=== PATIENT | female | born 1960 | race Caucasian/White ===

== ENCOUNTER 2023-07-18 14:43 | Outpatient (AMB) | payer OTHER, SELFPAY ==
[2023-07-18 14:56] VITALS: BP 102/82; PULSE 69; O2SAT 97; BMI 21.4
--- NOTE | 2023-07-18 14:56 | HO.NEPHOV_ITS ---
HPI HPI Comments History of Present Illness Details 61-year-old woman with a history of hype rtension and nephrolithiasis he is here for further evaluation of renal stones. About 3 years ago she underwent lithotripsy. She has had no further follow-up with respect to renal stones and she self-referred herself. Her mother is also her patient of mine. Today she denies any new complaints. No dysuria urgency increased frequency. No hematuria. No line pain or flank pain. Vital Signs 07/18/23 14:56 Height 5 ft 2 in Weight 117 lb BMI 21.4 BP 102/82 Blood Pressure Location Rt brachial Position Sitting Pulse 69 Pulse Source Pulse Oximeter Pulse Oximetry (%) 97 Oxygen Delivery Method Room Air Physical Exam Vital Signs: Last Vital Signs Pulse 69 07/18/23 14:56 BP 102/82 07/18/23 14:56 Pulse Ox 97 07/18/23 14:56 Oxygen Delivery Method Room Air 07/18/23 14:56 BMI result Body Mass Index 21.4 Const General: comfortable Nutritional Appearance: well nourished Orientation/consciousness: patient oriented x3 HEENT Head: No normal to inspection Mouth: moist mucous membranes Neck Neck: Yes supple and Yes no JVD Resp Auscultation: clear to auscultation bilaterally, no rales and rub present Cardio Jugular venous distension: no JVD Palpation: no palpable S3 and no palpable S4 Heart sounds: no rubs GI Palpation (GI): Soft to palpation and nontender Percussion: No Fluid wave present General: Yes no CVA tenderness Back/Spine/Pelvis Back: no CVA tenderness Skin General skin exam: no rashes or lesions noted Neuro General: patient oriented x3 Extrem General: Yes no pedal edema and No clubbing Assessment & Plan Assessment & Plan (1) Nephrolithiasis: Code(s): N20.0 - Calculus of kidney (2) HTN (hypertension): Code(s): I10 - Essential (primary) hypertension Plan 63-year-old woman with nephrolithiasis. At present she is asymptomatic. However she believes she still has some stones. I will initiate a workup for the nephrolithiasis. Order renal ultrasonogram. Obtain 24 urine collection for the urine studies. The meantime increased shortness and low-sodium diet and increase her fluid intake to maintain a urine output of at least 2 L in 24 hour. She is currently on Topamax. Topamax can cause slice and foam renal stones. Therefore encouraged her to increase her fluid intake to keep the urine dilute. It is unclear as to why she is on Topamax. If he continues to have recurrent nephrolithiasis it may be worthwhile to try alternate agents to replace Topamax. Hypertension Blood pressure has been well controlled today blood pressure rather low. If the systolic blood pressure remains less than 100 we might have to lower the antihypertensive medications. Orders: Orders Uric Acid, 24Hr Urine Group 07/18/23 I10 - Essential (primary) hypertension, N20.0 - Calculus of kidney Oxalate, 24 Hr 07/18/23 I10 - Essential (primary) hypertension, N20.0 - Calculus of kidney Blood Urea Nitrogen 07/18/23 I10 - Essential (primary) hypertension, N20.0 - Calculus of kidney Uric Acid 07/18/23 I10 - Essential (primary) hypertension, N20.0 - Calculus of kidney Sodium, 24Hr Urine Group 07/18/23 I10 - Essential (primary) hypertension, N20.0 - Calculus of kidney Calcium, 24 Hr Ur 07/18/23 I10 - Essential (primary) hypertension, N20.0 - Calculus of kidney Creatinine, 24 Hr Group 07/18/23 I10 - Essential (primary) hypertension, N20.0 - Calculus of kidney Citric Acid 24hr Urine 07/18/23 I10 - Essential (primary) hypertension, N20.0 - Calculus of kidney Electrolytes 07/18/23 I10 - Essential (primary) hypertension, N20.0 - Calculus of kidney Creatinine 07/18/23 I10 - Essential (primary) hypertension, N20.0 - Calculus of kidney Calcium 07/18/23 I10 - Essential (primary) hypertension, N20.0 - Calculus of kidney UA and rflx microscopic 07/18/23 I10 - Essential (primary) hypertension, N20.0 - Calculus of kidney US renal BI 07/18/23 I10 - Essential (primary) hypertension, N20.0 - Calculus of kidney Coding Level of Care Code New Pt Level 4 (84218) Diagnoses Nephrolithiasis N20.0 HTN (hypertension) I10
== END 2023-07-18 15:23 | disposition home or self-care (01) ==
PROVIDERS: PCP Family Medicine; Visit Provider Internal Medicine Hypertension Specialist
DX: N20.0 Calculus of kidney (principal); I10 Essential (primary) hypertension
CPT/HCPCS: 99204

== ENCOUNTER → 2023-07-18 14:43 | Outpatient (BNVA) | payer OTHER, SELFPAY | PROVIDERS: PCP Family Medicine; Visit Provider Internal Medicine Hypertension Specialist | DX: N20.0 Calculus of kidney (principal); I10 Essential (primary) hypertension | CPT/HCPCS: 99202 ==

== ENCOUNTER 2023-08-10 16:02 | Outpatient (REF) | payer OTHER, SELFPAY ==
--- NOTE | ~2023-08-10 | US_ITS ---
EXAMINATION: US RETROPERITONEAL LIMITED (RENAL ONLY) CLINICAL INFORMATION: Essential (primary) hypertension. COMPARISON: None available. TECHNIQUE: Real-time imaging of the kidneys. FINDINGS: RIGHT KIDNEY: 11.0 x 2.9 x 4.3 cm (SAG x AP x TRV). The kidney is normal in size, contour, and echogenicity. Renal cortical thickness is normal. No calculi or focal parenchymal lesions. No hydronephrosis. LEFT KIDNEY: 10.2 x 4.5 x 4.0 cm (SAG x AP x TRV). The kidney is normal in size, contour, and echogenicity. Renal cortical thickness is normal. No calculi or focal parenchymal lesions. Pelviectasis without clayton hydronephrosis. US/US renal BI IMPRESSION: Left renal pelviectasis without clayton hydronephrosis.
== END 2023-08-10 16:03 | disposition home or self-care (01) ==
LOC: HO.US 16:02
PROVIDERS: Visit Provider Internal Medicine Hypertension Specialist
DX: N20.0 Calculus of kidney (principal); I10 Essential (primary) hypertension
CPT/HCPCS: 76775

== ENCOUNTER 2023-08-16 09:56 | Outpatient (REF) | payer OTHER, SELFPAY ==
[2023-08-16 11:32] LABS: Appearance Urine Clear; Color Urine Yellow; Glucose Urine UA Negative (Negative); Leukocyte Esterase Urine Negative (Negative); Nitrite Urine Negative (Negative); Specific Gravity - Urine 1.015 (1.005-1.025); Urine Blood Negative (Negative); Urine Ketones Negative (Negative); Urine Protein Negative (Neg-Trace)
[2023-08-16 13:07] LABS: Anion Gap 11 (12-20); Blood Urea Nitrogen 22 mg/dL (9-16); Calcium 9.9 mg/dL (8.4-10.2); Carbon Dioxide 27 mmol/L (22-29); Chloride 107 mmol/L (96-108); Estimated Glomerular Filt Rate > 60; Potassium 3.9 mmol/L (3.3-5.1); Sodium 141 mmol/L (135-145); Uric Acid 3.2 mg/dL (2.4-5.7)
== END 2023-08-16 09:57 | disposition home or self-care (01) ==
LOC: HO.LAB 09:56
PROVIDERS: Visit Provider Internal Medicine Hypertension Specialist
DX: I10 Essential (primary) hypertension (principal); N20.0 Calculus of kidney
CPT/HCPCS: 36415; 80051; 81003; 82310; 82565; 84520; 84550

== ENCOUNTER 2023-08-23 11:57 | Outpatient (REF) | payer OTHER, SELFPAY ==
[2023-08-23 12:10] LABS: Total Volume 24 Hour Urine 3100 mL
[2023-08-23 13:15] LABS: Creatinine, mg/dL 33.02; Sodium 24 Hr Urine 86.8 mmol/Day (40-220)
[2023-08-23 13:17] LABS: Creatinine, mg/dL 32.35; Uric Acid, 24 Hr Urine 483.6 mg/Day (250-750); Uric Acid, mg/dL 15.6 mg/dL
[2023-08-24 18:54] LABS: Calcium, 24 Hr Urine 93 mg/24 h; Calcium/Creatinine Ratio 83 mg/g creat (30-275); Creatinine 24Hr Urine 1.12 g/24 h (0.50-2.15)
[2023-08-28 08:33] LABS: 24hr Urine Total Volume 3100 mL; Citric Acid, 24hr Urine 620 mg/24 h (100-1300); Citric Acid/Creat Ratio 24U 539 mg/g creat (180-1070); Creatinine, 24U 1.12 g/24 h (0.50-2.15)
[2023-08-31 04:03] LABS: Oxalic Acid 24 Urine 44.4 mg/24 h (3.6-38.0)
== END 2023-08-23 11:58 | disposition home or self-care (01) ==
LOC: HO.LNP 11:57
PROVIDERS: Visit Provider Internal Medicine Hypertension Specialist
DX: I10 Essential (primary) hypertension (principal); N20.0 Calculus of kidney
CPT/HCPCS: 82340; 82507; 83945; 84300; 84560

== ENCOUNTER 2023-09-01 14:48 | Outpatient (AMB) | payer OTHER, SELFPAY ==
[2023-09-01 14:49] VITALS: BP 100/60; PULSE 91; O2SAT 99; BMI 21.4
--- NOTE | 2023-09-01 14:49 | HO.NEPHOV_ITS ---
HPI HPI Comments History of Present Illness Details 61-year-old woman with a history of hype rtension and nephrolithiasis he is here for further evaluation of renal stones. About 3 years ago she underwent lithotripsy. She has had no further follow-up with respect to renal stones and she self-referred herself. Her mother is also her patient of mine. Today she denies any new complaints. No dysuria urgency increased frequency. No hematuria. No line pain or flank pain. PFSH Medical History (Updated 09/20/23 @ 15:13 by Bindu Mack MA) HTN (hypertension) Nephrolithiasis Surgical History (Updated 09/20/23 @ 15:13 by Bindu Mack MA) History of section Family History Sister Diabetes Cancer Father Cancer Social History (Updated 09/20/23 @ 15:12 by Bindu Mack MA) Alcohol intake: never Patient Tobacco Use Status: Never used Tobacco Use of substances other than those prescribed or required for medical reasons: No Vital Signs 09/01/23 14:49 Height 5 ft 2 in Weight 117 lb BMI 21.4 BP 100/60 Blood Pressure Location Rt brachial Position Sitting Pulse 91 Pulse Source Pulse Oximeter Pulse Oximetry (%) 99 Oxygen Delivery Method Room Air Physical Exam Vital Signs: Last Vital Signs Pulse 91 09/01/23 14:49 BP 100/60 09/01/23 14:49 Pulse Ox 99 09/01/23 14:49 Oxygen Delivery Method Room Air 09/01/23 14:49 BMI result Body Mass Index 21.4 Const General: comfortable Nutritional Appearance: well nourished Orientation/consciousness: patient oriented x3 HEENT Head: No normal to inspection Mouth: moist mucous membranes Neck Neck: Yes supple and Yes no JVD Resp Auscultation: clear to auscultation bilaterally, no rales and rub present Cardio Jugular venous distension: no JVD Palpation: no palpable S3 and no palpable S4 Heart sounds: no rubs GI Palpation (GI): Soft to palpation and nontender Percussion: No Fluid wave present General: Yes no CVA tenderness Back/Spine/Pelvis Back: no CVA tenderness Skin General skin exam: no rashes or lesions noted Neuro General: patient oriented x3 Extrem General: Yes no pedal edema and No clubbing Assessment & Plan Assessment & Plan (1) Nephrolithiasis: Code(s): N20.0 - Calculus of kidney (2) HTN (hypertension): Code(s): I10 - Essential (primary) hypertension Plan 63-year-old woman with nephrolithiasis. At present she is asymptomatic. However she believes she still has some stones. I will initiate a workup for the nephrolithiasis. Order renal ultrasonogram. Obtain 24 urine collection for the urine studies. The meantime increased shortness and low-sodium diet and increase her fluid intake to maintain a urine output of at least 2 L in 24 hour. She is currently on Topamax. Topamax can cause slice and foam renal stones. Therefore encouraged her to increase her fluid intake to keep the urine dilute. It is unclear as to why she is on Topamax. If he continues to have recurrent nephrolithiasis it may be worthwhile to try alternate agents to replace Topamax. Hypertension Blood pressure has been well controlled today blood pressure rather low. If the systolic blood pressure remains less than 100 we might have to lower the antihypertensive medications. Coding Level of Care Code Est Pt Level 3 (28586) Diagnoses Nephrolithiasis N20.0 HTN (hypertension) I10 Results Reviewed Nephrology Results: Hgb 14.7 g/dL (12.0-16.0) 07/06/18 WBC 4.8 X10*3/uL (4.8-10.8) 07/06/18 Plt Count 130 X10*3/uL (160-400) L 07/06/18 Sodium 141 mmol/L (135-145) 08/16/23 Potassium 3.9 mmol/L (3.3-5.1) 08/16/23 Chloride 107 mmol/L (96-108) 08/16/23 Carbon Dioxide 27 mmol/L (22-29) 08/16/23 BUN 22 mg/dL (9-16) H 08/16/23 Creatinine 0.80 mg/dL (0.5-1.4) 08/16/23 Calcium 9.9 mg/dL (8.4-10.2) 08/16/23 PTH Intact 46 pg/mL (14-64) 07/06/18 Urine Protein Negative mg/dL (Neg-Trace) 08/16/23 Renal US 08/10/23
== END 2023-09-01 15:12 | disposition home or self-care (01) ==
PROVIDERS: PCP Family Medicine; Visit Provider Internal Medicine Hypertension Specialist
DX: N20.0 Calculus of kidney (principal); I10 Essential (primary) hypertension
CPT/HCPCS: 99213

== ENCOUNTER → 2023-09-01 14:48 | Outpatient (BNVA) | payer OTHER, SELFPAY | PROVIDERS: PCP Family Medicine; Visit Provider Internal Medicine Hypertension Specialist | DX: N20.0 Calculus of kidney (principal); I10 Essential (primary) hypertension | CPT/HCPCS: 99212 ==

== ENCOUNTER 2023-09-20 15:05 | Outpatient (AMB) | payer OTHER, SELFPAY ==
[2023-09-20 15:06] VITALS: BP 110/70; PULSE 50; O2SAT 100
--- NOTE | 2023-09-20 15:06 | HO.NEPHOV_ITS ---
HPI HPI Comments History of Present Illness Details 61-year-old woman with a history of hype rtension and nephrolithiasis he is here for further evaluation of renal stones. About 3 years ago she underwent lithotripsy. She has had no further follow-up with respect to renal stones and she self-referred herself. Her mother is also her patient of mine. Today she denies any new complaints. No dysuria urgency increased frequency. No hematuria. No line pain or flank pain. 09/20/23 Doing well [facility] Medical History (Updated 09/20/23 @ 15:13 by Bindu Mack MA) HTN (hypertension) Nephrolithiasis Surgical History (Updated 09/20/23 @ 15:13 by Bindu Mack MA) History of section Family History Sister Diabetes Cancer Father Cancer Social History (Updated 09/20/23 @ 15:12 by Bindu Mack MA) Alcohol intake: never Patient Tobacco Use Status: Never used Tobacco Use of substances other than those prescribed or required for medical reasons: No Vital Signs 09/20/23 15:06 Height 5 ft 2 in Weight 109 lb 2 oz BMI 20.0 BP 110/70 Blood Pressure Location Lt brachial Position Sitting Pulse 50 Pulse Source Pulse Oximeter Pulse Oximetry (%) 100 Oxygen Delivery Method Room Air Physical Exam Vital Signs: Last Vital Signs Pulse 50 09/20/23 15:06 BP 110/70 09/20/23 15:06 Pulse Ox 100 09/20/23 15:06 Oxygen Delivery Method Room Air 09/20/23 15:06 BMI result Body Mass Index 20.0 Const General: comfortable Nutritional Appearance: well nourished Orientation/consciousness: patient oriented x3 HEENT Head: No normal to inspection Mouth: moist mucous membranes Neck Neck: Yes supple and Yes no JVD Resp Auscultation: clear to auscultation bilaterally, no rales and rub present Cardio Jugular venous distension: no JVD Palpation: no palpable S3 and no palpable S4 Heart sounds: no rubs GI Palpation (GI): Soft to palpation and nontender Percussion: No Fluid wave present General: Yes no CVA tenderness Back/Spine/Pelvis Back: no CVA tenderness Skin General skin exam: no rashes or lesions noted Neuro General: patient oriented x3 Extrem General: Yes no pedal edema and No clubbing Assessment & Plan Assessment & Plan (1) Nephrolithiasis: Code(s): N20.0 - Calculus of kidney (2) HTN (hypertension): Code(s): I10 - Essential (primary) hypertension Plan 63-year-old woman with nephrolithiasis. At present she is asymptomatic. However she believes she still has some stones. I will initiate a workup for the nephrolithiasis. Order renal ultrasonogram. Obtain 24 urine collection for the urine studies. The meantime increased shortness and low-sodium diet and increase her fluid intake to maintain a urine output of at least 2 L in 24 hour. She is currently on Topamax. Topamax can cause slice and foam renal stones. Therefore encouraged her to increase her fluid intake to keep the urine dilute. It is unclear as to why she is on Topamax. If he continues to have recurrent nephrolithiasis it may be worthwhile to try alternate agents to replace Topamax. Hypertension Blood pressure has been well controlled today blood pressure rather low. If the systolic blood pressure remains less than 100 we might have to lower the antihypertensive medications. Coding Level of Care Code Est Pt Level 3 (55807) Diagnoses Nephrolithiasis N20.0 HTN (hypertension) I10 Results Reviewed Nephrology Results: Hgb 14.7 g/dL (12.0-16.0) 07/06/18 WBC 4.8 X10*3/uL (4.8-10.8) 07/06/18 Plt Count 130 X10*3/uL (160-400) L 07/06/18 Sodium 141 mmol/L (135-145) 08/16/23 Potassium 3.9 mmol/L (3.3-5.1) 08/16/23 Chloride 107 mmol/L (96-108) 08/16/23 Carbon Dioxide 27 mmol/L (22-29) 08/16/23 BUN 22 mg/dL (9-16) H 08/16/23 Creatinine 0.80 mg/dL (0.5-1.4) 08/16/23 Calcium 9.9 mg/dL (8.4-10.2) 08/16/23 PTH Intact 46 pg/mL (14-64) 07/06/18 Urine Protein Negative mg/dL (Neg-Trace) 08/16/23 Renal US 08/10/23
== END 2023-09-20 15:27 | disposition home or self-care (01) ==
PROVIDERS: PCP Family Medicine; Visit Provider Internal Medicine Hypertension Specialist
DX: N20.0 Calculus of kidney (principal); I10 Essential (primary) hypertension
CPT/HCPCS: 99213

== ENCOUNTER → 2023-09-20 15:05 | Outpatient (BNVA) | payer OTHER, SELFPAY | PROVIDERS: PCP Family Medicine; Visit Provider Internal Medicine Hypertension Specialist | DX: N20.0 Calculus of kidney (principal); I10 Essential (primary) hypertension | CPT/HCPCS: 99212 ==

== ENCOUNTER 2023-11-12 09:21 | Emergency (ER) | payer OTHER, SELFPAY ==
--- NOTE | ~2023-11-12 | XR_ITS ---
EXAMINATION: XR HAND/WRIST, LEFT CLINICAL INFORMATION: Atraumatic pain to the dorsal hand. COMPARISON: None TECHNIQUE: PA, lateral, and oblique views of the left hand and wrist. FINDINGS: No fracture or subluxation. Mild multifocal degenerative osteoarthritis with joint space narrowing, trace subcortical sclerosis and small marginal osteophytes more prominent in the distal interphalangeal joints. No osseous erosions. No unusual soft tissue calcifications. XR/XR hand wrist LT IMPRESSION: 1. No acute fracture or subluxation. 2. Mild multifocal degenerative osteoarthritis.
[2023-11-12 09:28] VITALS: BP 144/72; PULSE 78; RESP 16; TEMP 36.9; O2SAT 97; BMI 21.6
--- NOTE | 2023-11-12 09:54 | ED.EXTPRO ---
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 She admits to numbness/tingling of the first 3 digits on her left hand. Pain is worse in the morning and remains throughout the day. Endorses difficulty grabbing items with her left hand. She states that she has a history of carpal tunnel in both wrists that has not required surgery in the past. Her pcp is aware of her recent left hand/wrist pain and has provided her with a referral to an orthopedic doctor for further evaluation. She has an appointment with [facility] in December (1 mo away). She does not currently wear a wrist brace. She has not been taking any OTC pain medications. Denies injury/trauma to the left hand/wrist. Denies left neck, shoulder, or elbow pain. A appointment scheduler was utilized throughout visit to communicate with patient. Related Data Home Medications Medication Instructions Recorded Confirmed buspirone 10 mg tablet 10 mg PO BID 07/18/23 citalopram 20 mg tablet (Celexa) 20 mg PO DAILY 07/18/23 clopidogrel 75 mg tablet (Plavix) 75 mg PO DAILY 07/18/23 losartan 100 mg tablet 100 mg PO DAILY 07/18/23 montelukast 10 mg tablet 10 mg PO DAILY 07/18/23 (Singulair) pantoprazole 40 mg granules 40 mg PO DAILY 07/18/23 delayed-release for susp in packet sennosides 8.6 mg capsule (senna) 8.6 mg PO DAILY 07/18/23 topiramate 100 mg tablet (Topamax) 100 mg PO DAILY 07/18/23 Previous Rx's Medication Instructions Recorded prednisone 20 mg tablet 40 mg (2 x 20 mg) PO DAILY 5 days 11/12/23 #10 tabs Allergies Allergy/AdvReac Type Severity Reaction Status Date / Time aspirin Allergy Unknown Rash Verified 11/12/23 09:33 ibuprofen Allergy Unknown Rash Verified 11/12/23 09:33 loratadine Allergy Unknown Rash Verified 03/02/24 09:33 pneumococcal vaccine Allergy Unknown Rash Verified 11/12/23 09:33 Penicillins Allergy Rash Verified 11/12/23 09:33 Seafood Allergy Unknown Rash Uncoded 11/12/23 09:33 flu vaccine Allergy Rash Uncoded 11/12/23 09:33 shingles vaccine Allergy rash Uncoded 11/12/23 09:33 Review of Systems Review of Systems: Constitutional: No fever, chills, fatigue, night sweats, weight changes ENT/Mouth: No ear pain, hearing loss, nasal congestion, sinus pain, rhinorrhea, sore throat Eyes: No eye pain, swelling, redness, vision changes, discharge Cardio: No chest pain, palpitations, AMBROCIO, orthopnea, peripheral edema Pulm: No SOB, cough, sputum, wheezing, dyspnea, hemoptysis GI: No nausea, vomiting, hematemesis, abdominal pain, diarrhea, constipation, hematochezia, melena : No irregular bleeding, dysuria, frequency, urgency, hesitancy, hematuria, flank pain, urinary flow changes, urinary incontinence or retention MSK: No back pain, neck pain, joint pain, myalgias, +left wrist/hand pain Skin: No lesions, rashes Neuro: No weakness, numbness, paresthesias, LOC, dizziness, headache Psych: No anxiety/panic, depression, SI/HI, AH/VH All other systems reviewed and are negative. [facility] Past Medical History Attestation statement: The following information was validated with the patient. Source: old records reviewed and nursing notes reviewed Medical History HTN (hypertension) Nephrolithiasis Surgical History History of section Family History Family History Sister Diabetes Cancer Father Cancer Social History Social History Alcohol intake: never Patient Tobacco Use Status: Never used Tobacco Advance Directives: No Advance Directives Information Provided: No Physical Exam Vital Signs: Vital Signs: Last Vital Signs Temp 98.4 F 11/12/23 09:28 Pulse 78 11/12/23 09:28 Resp 16 11/12/23 09:28 BP 144/72 H 11/12/23 09:28 Pulse Ox 97 11/12/23 09:28 O2 Del Method Room Air 11/12/23 09:28 BMI result Body Mass Index 21.6 Patient hypertensive, vitals otherwise wnl. Const: General: cooperative, healthy appearing, comfortable and no acute distress Nutritional Appearance: average body habitus Orientation/consciousness: patient oriented x3 Limitations: no limitations HEENT: Head: Yes normal to inspection, Yes No palpable skull fracture present, Yes normocephalic and Yes atraumatic Eyes: General: appearance normal, both eyes and all related structures Conjunctivae: conjunctivae normal Sclerae: sclerae normal Pupils: Equal, round and reactive pupils present EOM: EOMs intact bilaterally Neck: Neck: Yes normal visual inspection, Yes full ROM and Yes no lymphadenopathy Resp: Effort & Inspection: normal respiratory effort Auscultation: clear to auscultation bilaterally Cardio: Other: 2+ radial and ulnar pulses Rate: regular rate Rhythm: regular rhythm Back/Spine/Pelvis: Other: No midline spinous tenderness or step off deformity. No paraspinal muscle tenderness. Skin: General skin exam: no rashes or lesions noted Neuro: Other: Sensation intact to light touch.? Neurovascular intact distally.? General: patient oriented x3 and gait normal Cranial nerves: Yes Equal, round and reactive pupils present Gait exam (Neuro): Normal gait present Deep tendon reflexes (DTR's): Left triceps reflex intensity grade: 2+ and Left biceps reflex intensity grade: 2+ Extrem: Other: + no thenar atrophy. No edema or overlying skin changes noted to the left wrist/hand. No cyanosis, pallor, warmth or coolness. 2+ radial and ulnar pulses b/l. Full ROM intact to left elbow, wrist, and digits. Positive tinel and phalen on left. Decreased chronic care nurse strength to left hand. Finger to thumb opposition intact. Course Course Course Narrative: 1049-- Exam consistent with carpal tunnel syndrome. Xrays do not demonstrate acute fracture however they do demonstrate chronic degenerative changes within the left hand/wrist. Will supply patient with wrist brace to help with immobilization. Advised to wear this mainly at night however this can be worn throughout the day as well given patient is left hand dominant. 5 day prescription of prednisone sent to pharmacy. Educated patient on worrisome signs and symptoms and when to return to the ED. Patient has an appointment with orthopedic doctor in one month for further investigation/ treatment. Patient has remained stable throughout ED visit today. All questions answered at this time. Patient is agreeable with disposition and stable for discharge. Medical Decision Making Medical Decision Making [facility] Narrative: 63-year-old left hand dominant female with pmhx significant for hypertension presents to the ED today for evaluation left hand/wrist pain x2 weeks. Patient hypertensive to 144/72, vitals otherwise WNL. On exam, no thenar atrophy. No edema or overlying skin changes noted to the left wrist/hand. No cyanosis, pallor, warmth or coolness. 2+ radial and ulnar pulses b/l. Full ROM intact to left elbow, wrist, and digits. Positive tinel and phalen on left. Decreased chronic care nurse strength to left hand. Finger to thumb opposition intact. Exam nonfocal. RRR. Differential includes carpal tunnel syndrome, arthritis. Unlikely compartment syndrome, fracture/dislocation, neurovascular compromise, gout/pseudogout, septic joint, threat to limb, CVA/TIA, ACS. Plan for xrays and reevaluation. Differential Diagnosis Differential Diagnoses: The differential diagnosis associated with the presentation includes as above. Admission/Observation Not indicated. Independent Interpretation I performed an independent interpretation of an: Plain X-Ray Interpretation: I have personally reviewed xray of left wrist/hand and agree with radiologist's interpretation. Radiology Impression Discussion of test interpretation with radiology: I have reviewed the radiologist's reading. Radiologist Impression: XR hand wrist LT IMPRESSION: 1. No acute fracture or subluxation. 2. Mild multifocal degenerative osteoarthritis. External Record Review External record reviewed: Inpatient record, Office record, Outpatient record, Prior outpatient labs, Prior outpatient radiology, Primary care record and Outside ED record Prescription Management I considered prescription management with: Pain Medication and Other (prednisone) Chronic Conditions Patient?s care impacted by: Other (carpal tunnel syndrome) Social Determinants Patient?s care significantly limited by Social Determinants of Health including: Other Social Determinant of Health Procedures Orthopedic Splinting/Casting Injury #1: Side: left Upper Extremity Injury Location: wrist Upper Extremity Immobilizer: wrist splint Discharge Plan Discharge Clinical Impression: Carpal tunnel syndrome Qualifiers: Laterality: left Qualified Code(s): G56.02 - Carpal tunnel syndrome, left upper limb Patient Disposition: Home, Self-Care Instructions: Steroid Joint Injection (DC), Carpal Tunnel Surgery (DC), Electromyography (DC) Additional Instructions: Your physical exam is consistent with carpal tunnel syndrome (compression of the median nerve). This can cause numbness/ tingling in your hand along with difficulty grasping objects. You have been provided with a wrist brace. This is most helpful to wear at night however you may wear it throughout the day as well. Prednisone is a steroid that has been sent to your pharmacy. Take this over the next 5 days to help with inflammation. If your diabetic, please monitor your sugars at home as steroids can elevate sugar. You may also take Tylenol and ibuprofen as needed at home. Keep your appointment with the orthopedic doctor next month as you may require further intervention or even surgery. Return with any new or worsening symptoms. Follow-up with your PCP as needed. [place] examen f?sico es consistente con el s?ndrome del t?sumit bruceiano (compresi?n del nervio mediano). [place] puede causar entumecimiento/hormigueo en la mano junto con dificultad para agarrar objetos. Se le quintero proporcionado frederic mu?equera. Es m?s ?til usarlo por la noche, aunque tambi?n puedes usarlo marilyn el d?a. La prednisona es un esteroide que se envi? a hudson farmacia. T?gracia marilyn los pr?ximos 5 d?as para ayudar con la inflamaci?n. Si es diab?michela, controle malia niveles de az?car en casa, ya que los esteroides pueden elevar el nivel de az?car. Tambi?n puede hanna Tylenol e ibuprofeno seg?n sea necesario en casa. Asista a hudson cammie con el m?dico ortop?dico el pr?ximo mes, ya que es posible que necesite m?s intervenci?n o incluso cirug?a. Regrese con cualquier s?ntoma nuevo o que empeore. Augusto un seguimiento con hudson PCP seg?n sea necesario. Prescriptions: New prednisone 20 mg tablet 40 mg PO DAILY 5 Days Qty: 10 0RF No Action losartan 100 mg tablet 100 mg PO DAILY pantoprazole [address] for susp in packet 40 mg PO DAILY clopidogrel [Plavix] 75 mg tablet 75 mg PO DAILY citalopram [Celexa] 20 mg tablet 20 mg PO DAILY montelukast [Singulair] 10 mg tablet 10 mg PO DAILY topiramate [Topamax] 100 mg tablet 100 mg PO DAILY senna 8.6 mg capsule 8.6 mg PO DAILY buspirone 10 mg tablet 10 mg PO BID Interventions: ED Discharge Assessment Last Done: 11/12/23 11:09 Discharge Date/Time: 11/12/23 11:09 Print Language: Bulgarian
== END 2023-11-12 11:09 | disposition home or self-care (01) ==
PROVIDERS: Emergency Provider Emergency Medicine Emergency Medical Services; PCP Internal Medicine
DX: G56.02 Carpal tunnel syndrome, left upper limb (principal); M25.532 Pain in left wrist; M79.642 Pain in left hand; R20.0 Anesthesia of skin; I10 Essential (primary) hypertension
CPT/HCPCS: 29125; 73110; 73130; 99283; 99284

== ENCOUNTER 2024-03-05 13:49 | Outpatient (REF) | payer OTHER, SELFPAY ==
[2024-03-05 15:29] LABS: MANUAL DIFF FLAG NO
[2024-03-05 15:42] LABS: Basophils Percent Auto 0.6 % (0-2); Eosinophils Absolute Auto 0.1 X10*3/uL (0.0-0.4); Eosinophils Percent Auto 1.3 % (0-4); Hematocrit 38.3 % (37.0-47.0); Imm Gran Abs Auto 0.02 X10*3/uL (0.00-0.03); Imm Gran Pct Auto 0.3 % (0.0-0.4); Lymphocytes Absolute Auto 1.6 X10*3/uL (1.2-4.9); Mean Corpuscular HGB Conc 33.9 g/dl (31.0-35.0); Mean Corpuscular Hemoglobin 31.3 pg (27.0-33.0); Mean Corpuscular Volume 92.1 fL (80.0-98.0); Mean Platelet Volume 10.8 fL (9.4-12.3); Monocytes Absolute Auto 0.8 X10*3/uL (0.1-1.2); Monocytes Percent Auto 12.8 % (2-11); Neutrophils Absolute Auto 3.8 x10*3/uL (2.0-8.3); Platelet Count 130 X10*3/uL (160-400); Red Blood Count 4.16 X10*6/uL (4.20-5.50); Red Cell Distribution Width 13.4 % (11.0-16.0); White Blood Count 6.3 X10*3/uL (4.8-10.8)
[2024-03-05 16:18] LABS: Alanine Aminotransferase 46 U/L (0-31); Alkaline Phosphatase 84 U/L (39-117); Anion Gap 12 (12-20); Aspartate Amino Transferase 41 U/L (5-31); Bilirubin Total 0.3 mg/dL (0.0-1.0); Blood Urea Nitrogen 26 mg/dL (9-16); Calcium 10.2 mg/dL (8.4-10.2); Carbon Dioxide 27 mmol/L (22-29); Chloride 107 mmol/L (96-108); Estimated Glomerular Filt Rate > 60; Glucose Random 90 mg/dL (60-115); Phosphorus 3.5 mg/dL (2.7-4.5); Potassium 4.6 mmol/L (3.3-5.1); Sodium 141 mmol/L (135-145); Total Protein 8.1 g/dL (6.5-8.0)
[2024-03-05 16:19] LABS: Parathyroid Hormone Intact 85.2 pg/mL (8.7-77.1)
[2024-03-08 16:29] LABS: Vitamin D 25-OH, D2 <4 ng/mL; Vitamin D 25-OH, D3 36 ng/mL; Vitamin D 25-OH, Total 36 ng/mL (30-100)
== END 2024-03-05 13:50 | disposition home or self-care (01) ==
LOC: HO.LAB 13:49
PROVIDERS: PCP Family Medicine; Visit Provider Internal Medicine Hypertension Specialist
DX: I10 Essential (primary) hypertension (principal); Z87.442 Personal history of urinary calculi
CPT/HCPCS: 36415; 80053; 82306; 83970; 84100; 85025; 99212

== ENCOUNTER 2024-03-05 13:49 | Outpatient (AMB) | payer OTHER, SELFPAY ==
[2024-03-05 13:50] VITALS: BP 96/58; PULSE 88; O2SAT 98; BMI 22.3
--- NOTE | 2024-03-05 13:50 | HO.NEPHOV_ITS ---
Vital Signs 03/05/24 13:50 Height 5 ft 2 in Weight 122 lb BMI 22.3 BP 96/58 L Blood Pressure Location Lt brachial Position Sitting Pulse 88 Pulse Source Pulse Oximeter Pulse Oximetry (%) 98 Oxygen Delivery Method Room Air Intake Visit Reasons: 6 mo fu/ Conf Bus Transportation Manager Required: Yes Bus Transportation Manager Name: Shola [id number] Accompanied by: Self / Same As Patient Allergies aspirin Allergy (Unknown, Verified 03/05/24 13:52) Rash ibuprofen Allergy (Unknown, Verified 03/05/24 13:52) Rash loratadine Allergy (Unknown, Verified 03/05/24 13:52) Rash pneumococcal vaccine Allergy (Unknown, Verified 03/05/24 13:52) Rash Penicillins Allergy (Verified 03/05/24 13:52) Rash Seafood Allergy (Unknown, Uncoded 11/12/23 09:33) Rash flu vaccine Allergy (Uncoded 11/12/23 09:33) Rash shingles vaccine Allergy (Uncoded 11/12/23 09:33) rash Medication List - Last Reconciled 03/05/24 by Saman Schaefer MD acetaminophen ER 650 mg PO Q12H PRN buspirone 15 mg PO BID cetirizine (All Day Allergy (cetirizine)) 10 mg PO DAILY PRN cholecalciferol (vitamin D3) 25 mcg PO DAILY citalopram (Celexa) 20 mg PO DAILY clopidogrel (Plavix) 75 mg PO DAILY diclofenac sodium 1% topical diphenhydramine HCl (Allergy (diphenhydramine)) 25 mg PO BEDTIME PRN docusate sodium (DOK) 100 mg PO BID epinephrine IM gabapentin mg PO DAILY PRN ketotifen fumarate 0.025%(0.035%) drps ophthalmic (eye) losartan 50 mg PO DAILY melatonin 3 mg PO BEDTIME PRN montelukast (Singulair) 10 mg PO DAILY pantoprazole DR 40 mg PO DAILY rosuvastatin 20 mg PO BEDTIME sennosides (senna) 8.6 mg PO DAILY simethicone (Gas Relief Extra Strength) 125 mg PO QID topiramate (Topamax) 100 mg PO DAILY triamcinolone acetonide intranasal valacyclovir 500 mg PO DAILY HPI Comments Details: 61-year-old woman with a history of hypertension and nephrolithiasis he is here for further evaluation of renal stones. About 3 years ago she underwent lithotripsy. She has had no further follow-up with respect to renal stones and she self-referred herself. Her mother is also her patient of mine. Today she denies any new complaints. No dysuria urgency increased frequency. No hematuria. No line pain or flank pain. 09/20/23 Doing well [facility] Medical History HTN (hypertension) Nephrolithiasis Surgical History History of section Family History Sister Diabetes Cancer Father Cancer Social History Alcohol intake: never Patient Tobacco Use Status: Never used Tobacco Physical Exam Vital Signs: Last Vital Signs Pulse 88 03/05/24 13:50 BP 96/58 L 03/05/24 13:50 Pulse Ox 98 03/05/24 13:50 Oxygen Delivery Method Room Air 03/05/24 13:50 BMI result Body Mass Index 22.3 Const General: comfortable; No acute distress Orientation/consciousness: patient oriented x3 Eyes General: appearance normal, both eyes and all related structures Visual Joseph: normal visual joseph by confrontation Neck Neck: Yes supple and Yes no JVD Resp Effort & Inspection: normal respiratory effort and respiratory effort not decreased Auscultation: rhonchi Cardio Palpation: no palpable S3 and no palpable S4 Heart sounds: no rubs GI Inspection: Yes normal to inspection Palpation (GI): Soft to palpation Percussion: Yes normal to percussion Auscultation: normal bowel sounds General: Yes no CVA tenderness Back/Spine/Pelvis Back: no CVA tenderness Skin General skin exam: no petechiae and no purpura Neuro General: patient oriented x3 and no focal motor deficits Extrem General: No clubbing and No edema Results Reviewed Nephrology Results: Hgb 13.0 g/dl (12.0-16.0) 03/05/24 WBC 6.3 X10*3/uL (4.8-10.8) 03/05/24 Plt Count 130 X10*3/uL (160-400) L 03/05/24 Sodium 141 mmol/L (135-145) 03/05/24 Potassium 4.6 mmol/L (3.3-5.1) 03/05/24 Chloride 107 mmol/L (96-108) 03/05/24 Carbon Dioxide 27 mmol/L (22-29) 03/05/24 BUN 26 mg/dL (9-16) H 03/05/24 Creatinine 0.86 mg/dL (0.5-1.4) 03/05/24 Calcium 10.2 mg/dL (8.4-10.2) 03/05/24 Phosphorus 3.5 mg/dL (2.7-4.5) 03/05/24 PTH Intact 85.2 pg/mL (8.7-77.1) H 03/05/24 Urine Protein Negative mg/dL (Neg-Trace) 08/16/23 Renal US 08/10/23 Assessment & Plan Assessment & Plan (1) Nephrolithiasis: Code(s): N20.0 - Calculus of kidney Category: Medical (2) HTN (hypertension): Code(s): I10 - Essential (primary) hypertension Category: Medical Plan 63-year-old woman with nephrolithiasis. At present she is asymptomatic. However she believes she still has some stones. 24 urine collection for the urine studies. Showed mild hyperoxaluria The meantime encouraged to stay on low-sodium diet and increase her fluid intake to maintain a urine output of at least 2 L in 24 hour. She is currently on Topamax. Topamax can cause slice and foam renal stones. Therefore encouraged her to increase her fluid intake to keep the urine dilute. It is unclear as to why she is on Topamax. If he continues to have recurrent nephrolithiasis it may be worthwhile to try alternate agents to replace Topamax. Hypertension Blood pressure has been well controlled today blood pressure rather low. Can decrease losartan by 50% Orders: Orders Complete Blood Count Auto Diff 03/05/24 I10 - Essential (primary) hypertension Parathyroid Hormone Intact 03/05/24 I10 - Essential (primary) hypertension Vitamin D 25-OH (D2 and D3) 03/05/24 I10 - Essential (primary) hypertension Oxalate, 24 Hr 03/05/24 N20.0 - Calculus of kidney Sodium, 24Hr Urine Group 03/05/24 N20.0 - Calculus of kidney Comprehensive Met. Panel 03/05/24 I10 - Essential (primary) hypertension Phosphorus 03/05/24 I10 - Essential (primary) hypertension Creatinine, 24 Hr Group 03/05/24 N20.0 - Calculus of kidney Coding Level of Care Code Est Pt Level 4 (72155) Diagnoses Nephrolithiasis N20.0 HTN (hypertension) I10
== END 2024-03-05 14:14 | disposition home or self-care (01) ==
PROVIDERS: PCP Family Medicine; Visit Provider Internal Medicine Hypertension Specialist
DX: N20.0 Calculus of kidney (principal); I10 Essential (primary) hypertension
CPT/HCPCS: 99214

== ENCOUNTER 2024-05-03 09:24 | Outpatient (AMB) | payer OTHER, SELFPAY ==
[2024-05-03 09:28] VITALS: BP 110/68; PULSE 84; O2SAT 98; BMI 23.2
--- NOTE | 2024-05-03 09:28 | A.OFFVIS_ITS ---
Vital Signs 05/03/24 09:28 Height 5 ft 2 in Weight 127 lb BMI 23.2 BP 110/68 Blood Pressure Location Lt brachial Position Sitting Pulse 84 Pulse Source Pulse Oximeter Pulse Oximetry (%) 98 Oxygen Delivery Method Room Air Intake Visit Reasons: Hypertension Ludlow Machine Operator Required: Yes Ludlow Machine Operator Name: Sapna [id number] Accompanied by: Self / Same As Patient Allergies aspirin Allergy (Unknown, Verified 05/03/24 09:31) Rash ibuprofen Allergy (Unknown, Verified 05/03/24 09:31) Rash loratadine Allergy (Unknown, Verified 05/03/24 09:31) Rash pneumococcal vaccine Allergy (Unknown, Verified 05/03/24 09:31) Rash Penicillins Allergy (Verified 05/03/24 09:31) Rash Seafood Allergy (Unknown, Uncoded 11/12/23 09:33) Rash flu vaccine Allergy (Uncoded 11/12/23 09:33) Rash shingles vaccine Allergy (Uncoded 11/12/23 09:33) rash Medication List - Last Reconciled 05/03/24 by Saman Schaefer MD acetaminophen ER 650 mg PO Q12H PRN buspirone 15 mg PO BID cetirizine (All Day Allergy (cetirizine)) 10 mg PO DAILY PRN cholecalciferol (vitamin D3) 25 mcg PO DAILY citalopram (Celexa) 20 mg PO DAILY clopidogrel (Plavix) 75 mg PO DAILY diclofenac sodium 1% topical diphenhydramine HCl (Allergy (diphenhydramine)) 25 mg PO BEDTIME PRN docusate sodium (DOK) 100 mg PO BID epinephrine IM gabapentin mg PO DAILY PRN ketotifen fumarate 0.025%(0.035%) drps ophthalmic (eye) losartan 50 mg PO DAILY melatonin 3 mg PO BEDTIME PRN montelukast (Singulair) 10 mg PO DAILY oxycodone 5 mg PO BID PRN pantoprazole DR 40 mg PO DAILY rosuvastatin 20 mg PO BEDTIME sennosides (senna) 8.6 mg PO DAILY simethicone (Gas Relief Extra Strength) 125 mg PO QID topiramate (Topamax) 100 mg PO DAILY triamcinolone acetonide intranasal valacyclovir 500 mg PO DAILY HPI Comments Details: 61-year-old woman with a history of hypertension and nephrolithiasis he is here for further evaluation of renal stones. About 3 years ago she underwent lithotripsy. She has had no further follow-up with respect to renal stones and she self-referred herself. Her mother is also her patient of mine. Today she denies any new complaints. No dysuria urgency increased frequency. No hematuria. No line pain or flank pain. 09/20/23 Doing well 05/03/24 Doing well. Unable to tolerate Ca PFSH Medical History HTN (hypertension) Nephrolithiasis Surgical History History of section Family History Sister Diabetes Cancer Father Cancer Social History Alcohol intake: never Patient Tobacco Use Status: Never used Tobacco Physical Exam Vital Signs: Last Vital Signs Pulse 84 05/03/24 09:28 BP 110/68 05/03/24 09:28 Pulse Ox 98 05/03/24 09:28 Oxygen Delivery Method Room Air 05/03/24 09:28 BMI result Body Mass Index 23.2 Const General: comfortable; No acute distress Orientation/consciousness: patient oriented x3 Eyes General: appearance normal, both eyes and all related structures Visual Joseph: normal visual joseph by confrontation Neck Neck: Yes supple and Yes no JVD Resp Effort & Inspection: normal respiratory effort and respiratory effort not decreased Auscultation: rhonchi Cardio Palpation: no palpable S3 and no palpable S4 Heart sounds: no rubs GI Inspection: Yes normal to inspection Palpation (GI): Soft to palpation Percussion: Yes normal to percussion Auscultation: normal bowel sounds General: Yes no CVA tenderness Back/Spine/Pelvis Back: no CVA tenderness Skin General skin exam: no petechiae and no purpura Neuro General: patient oriented x3 and no focal motor deficits Extrem General: No clubbing and No edema Assessment & Plan Assessment & Plan (1) Nephrolithiasis: Code(s): N20.0 - Calculus of kidney Category: Medical (2) HTN (hypertension): Code(s): I10 - Essential (primary) hypertension Category: Medical Plan 63-year-old woman with nephrolithiasis. At present she is asymptomatic. However she believes she still has some stones. 24 urine collection for the urine studies. Showed mild hyperoxaluria The meantime encouraged to stay on low-sodium diet and increase her fluid intake to maintain a urine output of at least 2 L in 24 hour. She is currently on Topamax. Topamax can cause slice and foam renal stones. Therefore encouraged her to increase her fluid intake to keep the urine dilute. It is unclear as to why she is on Topamax. If he continues to have recurrent nephrolithiasis it may be worthwhile to try alternate agents to replace Topamax. Stay on Vit D Hypertension Blood pressure has been well controlled today blood pressure rather low. Can decrease losartan by 50% Orders: Orders Creatinine, 24 Hr Group 6 Months N20.0 - Calculus of kidney Citric Acid 24hr Urine 6 Months N20.0 - Calculus of kidney Basic Metabolic Panel 6 Months I10 - Essential (primary) hypertension, N20.0 - Calculus of kidney Parathyroid Hormone Intact 6 Months I10 - Essential (primary) hypertension, N20.0 - Calculus of kidney Sodium, 24Hr Urine Group 6 Months N20.0 - Calculus of kidney Oxalate, 24 Hr 6 Months N20.0 - Calculus of kidney Coding Level of Care Code Est Pt Level 4 (73215) Diagnoses Nephrolithiasis N20.0 HTN (hypertension) I10
== END 2024-05-03 09:47 | disposition home or self-care (01) ==
PROVIDERS: PCP Family Medicine; Visit Provider Internal Medicine Hypertension Specialist
DX: N20.0 Calculus of kidney (principal); I10 Essential (primary) hypertension
CPT/HCPCS: 99214

== ENCOUNTER → 2024-05-03 09:24 | Outpatient (BNVA) | payer OTHER, SELFPAY | PROVIDERS: PCP Family Medicine; Visit Provider Internal Medicine Hypertension Specialist | DX: I10 Essential (primary) hypertension (principal); N20.0 Calculus of kidney | CPT/HCPCS: 99212 ==

== ENCOUNTER 2024-10-17 07:37 | Outpatient (REF) | payer OTHER, SELFPAY ==
[2024-10-31 12:53] LABS: HPV Genotype 16 Negative (Negative); HPV Genotype 18 Negative (Negative); HPV High Risk Negative (Negative)
== END 2024-10-17 07:38 | disposition home or self-care (01) ==
LOC: HO.LNP 07:37
PROVIDERS: PCP Family Medicine; Visit Provider Obstetrics & Gynecology
DX: Z01.419 Encounter for gynecological examination (general) (routine) without abnormal findings (principal); Z11.51 Encounter for screening for human papillomavirus (HPV); Z72.89 Other problems related to lifestyle
CPT/HCPCS: 87626; 88175; 99387; 99459

== ENCOUNTER 2024-10-17 07:37 | Outpatient (AMB) | payer OTHER, SELFPAY ==
--- NOTE | 2024-10-17 07:41 | MHC.OFFVIS ---
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 Department Of Mathematics Chair Required: Yes Department Of Mathematics Chair Language: Marketing Writer Services: Department Of Mathematics Chair Present (in person) Department Of Mathematics Chair Name: Sabrina WARE Information Interpreted: non-clinical & clinical Public Utilities Sales Representative: Public Utilities Sales Representative Present (Sabrina WARE) Accompanied by: Self / Same As Patient Allergies aspirin Allergy (Unknown, Verified 10/17/24 07:44) Rash ibuprofen Allergy (Unknown, Verified 10/17/24 07:44) Rash loratadine Allergy (Unknown, Verified 10/17/24 07:44) Rash pneumococcal vaccine Allergy (Unknown, Verified 10/17/24 07:44) Rash Penicillins Allergy (Verified 10/17/24 07:44) Rash Seafood Allergy (Unknown, Uncoded 10/17/24 07:44) Rash flu vaccine Allergy (Uncoded 10/17/24 07:44) Rash shingles vaccine Allergy (Uncoded 10/17/24 07:44) rash Post menopausal: Yes HPI Comments Details: Presenting for annual exam. No complaints. Last Pap/HPV was year ago according to patient but no records available Last Mammogram was a year ago at [facility], no records available Last Colonoscopy in 2022 according to the patient, the recommendation was to repeat in 01 14, no records available Last DEXA scan was in 2023, according to patient it showed osteoporosis, the patient was refer to rheumatology and she is in the process of scheduling an appointment with Rheumatology [facility] Medical History History of kidney stones HTN (hypertension) Nephrolithiasis Surgical History H/O eye surgery History of carpal tunnel surgery S/P removal of left ovary Hx of tubal ligation History of section Family History Sister Diabetes Cancer Father Cancer Social History Household Members: None Housing: House Alcohol intake: never Patient Tobacco Use Status: Former Tobacco user Current occupational status: disabled Sexual orientation: Straight/Heterosexual Gender identity: Female Female Reproductive History Menstrual control method: permanent sterilization Age of menopause: 49 Total pregnancies: 3 Full term: 3 Number of Living Children: 3 Review of Systems Const All systems reviewed & are unremarkable except as noted in HPI and below Card Reports as per HPI Resp Reports as per HPI GI Reports as per HPI and Reports no additional complaints Reports as per HPI Physical Exam Vital Signs: Last Vital Signs BP 110/66 10/17/24 07:42 BMI result Body Mass Index 24.3 Const General: cooperative, healthy appearing and comfortable Chest Chest palpation & inspection: normal inspection of the chest and normal palpation of entire chest wall Breast/axilla inspection: normal inspection of the breasts and normal inspection of the axillae Breast/axilla palpation: normal palpation of the breasts, normal palpation of the axillae and no axillary lymphadenopathy Resp Effort & Inspection: normal respiratory effort Auscultation: clear to auscultation bilaterally Percussion: percussion normal Cardio Palpation: normal PMI Rate: regular rate Rhythm: regular rhythm Heart sounds: no murmurs and no rubs Peripheral pulses: Peripheral pulses 2+ throughout GI Inspection: Yes normal to inspection Palpation (GI): Soft to palpation, nontender, no guarding, not rigid and No hepatosplenomegaly present Percussion: Yes normal to percussion Auscultation: normal bowel sounds Rectal Exam - Female: deferred General: Yes bladder normal to palpation External Female Exam: No lesion Speculum Exam - Vagina: normal appearance of the vagina, normal palpation, normal vaginal discharge and not erythematous Speculum Exam - Cervix: normal appearance of the cervix and normal palpation Bimanual exam- vagina & uterus: normal bimanual exam, normal palpation, uterine size normal, bladder normal to palpation, consistency normal and normal palpation Bimanual Exam- Adnexa, other: normal adnexae, no masses and no tenderness Assessment & Plan Assessment & Plan (1) Well woman exam: Code(s): Z01.419 - Encounter for gynecological examination (general) (routine) without abnormal findings Category: Medical Plan: Co testing done although the patient 's age is above 65 with no history of abnormal Pap smears last 25 years but no records of previous Pap smears are available. Counseled the patient about the recommended dietary allowance of 1200 mg of Calcium & 800 IU of vitamin D. Mammogram ordered. The patient has an appointment with rheumatology regarding osteoporosis identified on DEXA scan, no records available The patient was instructed to perform monthly self-breast exams and to schedule a 2 week DEXA scan follow-up appointment and an annual exam in a year; All questions answered and the patient verbalized understanding. Orders: Orders MM tomosynthesis screening BI Today Z12.31 - Encounter for screening mammogram for malignant neoplasm of breast Coding Level of Care Code New Pt Prev Care >65yr (59498) Diagnoses Well woman exam Z01.419
[2024-10-17 07:42] VITALS: BP 110/66; BMI 24.3
== END 2024-10-17 08:58 | disposition home or self-care (01) ==
LOC: HO.HWS 07:37
PROVIDERS: PCP Family Medicine; Visit Provider Obstetrics & Gynecology
DX: Z01.419 Encounter for gynecological examination (general) (routine) without abnormal findings (principal)
CPT/HCPCS: 99387; 99459

== ENCOUNTER 2024-10-27 09:18 | Outpatient (REF) | payer OTHER, SELFPAY ==
[2024-10-27 10:32] LABS: Anion Gap 11 (12-20); Blood Urea Nitrogen 26 mg/dL (9-16); Calcium 9.7 mg/dL (8.4-10.2); Carbon Dioxide 25 mmol/L (22-29); Chloride 109 mmol/L (96-108); Estimated Glomerular Filt Rate > 60; Glucose Random 96 mg/dL (60-115); Potassium 4.1 mmol/L (3.3-5.1); Sodium 141 mmol/L (135-145)
[2024-10-27 11:04] LABS: Creatinine, mg/dL 29.64; Creatinine, mg/dL 29.85
[2024-10-27 11:52] LABS: Creatinine, 24Hr Urine 0.9 G/Day (1.0-2.0); Sodium 24 Hr Urine 105.4 mmol/Day (40-220); Total Volume 24 Hour Urine 3100 mL
[2024-11-01 16:28] LABS: 24hr Urine Total Volume 3100 mL; Citric Acid, 24hr Urine 270 mg/24 h (100-1300); Citric Acid/Creat Ratio 24U 274 mg/g creat (180-1070); Creatinine, 24U 0.98 g/24 h (0.50-2.15)
[2024-11-03 18:18] LABS: 24hr Urine Total Volume 3100 mL; Oxalic Acid 24 Urine 16.7 mg/24 h (3.6-38.0)
== END 2024-10-27 09:19 | disposition home or self-care (01) ==
LOC: HO.LAB 09:18
PROVIDERS: PCP Family Medicine; Visit Provider Internal Medicine Hypertension Specialist
DX: N20.0 Calculus of kidney (principal); I10 Essential (primary) hypertension
CPT/HCPCS: 36415; 80048; 82507; 82570; 83945; 83970; 84300

== ENCOUNTER 2024-11-01 10:01 | Outpatient (AMB) | payer OTHER, SELFPAY ==
[2024-11-01 10:09] VITALS: BP 130/64; PULSE 85; O2SAT 97; BMI 24.3
--- NOTE | 2024-11-01 10:09 | HO.NEPHOV ---
Vital Signs 11/01/24 10:09 Height 5 ft 2 in Weight 133 lb BMI 24.3 BP 130/64 Blood Pressure Location Lt brachial Position Sitting Pulse 85 Pulse Source Pulse Oximeter Pulse Oximetry (%) 97 Oxygen Delivery Method Room Air Intake Visit Reasons: 6 mon follow up/ Conf Solderer Assembly Repair Required: Yes Solderer Assembly Repair Name: Wally [id number] Accompanied by: Self / Same As Patient Allergies aspirin Allergy (Unknown, Verified 11/01/24 10:09) Rash ibuprofen Allergy (Unknown, Verified 11/01/24 10:09) Rash loratadine Allergy (Unknown, Verified 11/01/24 10:09) Rash pneumococcal vaccine Allergy (Unknown, Verified 11/01/24 10:09) Rash Penicillins Allergy (Verified 11/01/24 10:09) Rash Seafood Allergy (Unknown, Uncoded 10/17/24 07:44) Rash flu vaccine Allergy (Uncoded 10/17/24 07:44) Rash shingles vaccine Allergy (Uncoded 10/17/24 07:44) rash Medication List - Last Reconciled 11/01/24 by Saman Schaefer MD acetaminophen ER 650 mg PO Q12H PRN buspirone 15 mg PO BID cetirizine (All Day Allergy (cetirizine)) 10 mg PO DAILY PRN cholecalciferol (vitamin D3) 25 mcg PO DAILY citalopram (Celexa) 20 mg PO DAILY clopidogrel (Plavix) 75 mg PO DAILY diclofenac sodium 1% topical diphenhydramine HCl (Allergy (diphenhydramine)) 25 mg PO BEDTIME PRN docusate sodium (DOK) 100 mg PO BID epinephrine IM gabapentin mg PO DAILY PRN ketotifen fumarate 0.025%(0.035%) drps ophthalmic (eye) losartan 50 mg PO DAILY melatonin 3 mg PO BEDTIME PRN montelukast (Singulair) 10 mg PO DAILY oxycodone 5 mg PO BID PRN pantoprazole DR 40 mg PO DAILY rosuvastatin 20 mg PO BEDTIME sennosides (senna) 8.6 mg PO DAILY simethicone (Gas Relief Extra Strength) 125 mg PO QID topiramate (Topamax) 100 mg PO DAILY triamcinolone acetonide intranasal valacyclovir 500 mg PO DAILY HPI Comments Details: 61-year-old woman with a history of hypertension and nephrolithiasis he is here for further evaluation of renal stones. About 3 years ago she underwent lithotripsy. She has had no further follow-up with respect to renal stones and she self-referred herself. Her mother is also her patient of mine. Today she denies any new complaints. No dysuria urgency increased frequency. No hematuria. No line pain or flank pain. 09/20/23 Doing well No new complaints underwent 24 hr Urine collection [facility] Medical History History of kidney stones HTN (hypertension) Nephrolithiasis Surgical History H/O eye surgery History of carpal tunnel surgery S/P removal of left ovary Hx of tubal ligation History of section Family History Sister Diabetes Cancer Father Cancer Social History Household Members: None Housing: House Alcohol intake: never Patient Tobacco Use Status: Former Tobacco user Current occupational status: disabled Sexual orientation: Straight/Heterosexual Gender identity: Female Physical Exam Vital Signs: Last Vital Signs Pulse 85 11/01/24 10:09 BP 130/64 11/01/24 10:09 Pulse Ox 97 11/01/24 10:09 Oxygen Delivery Method Room Air 11/01/24 10:09 BMI result Body Mass Index 24.3 Const General: comfortable; No acute distress Orientation/consciousness: patient oriented x3 Eyes General: appearance normal, both eyes and all related structures Visual Joseph: normal visual joseph by confrontation Neck Neck: Yes supple and Yes no JVD Resp Effort & Inspection: normal respiratory effort and respiratory effort not decreased Auscultation: rhonchi Cardio Palpation: no palpable S3 and no palpable S4 Heart sounds: no rubs GI Inspection: Yes normal to inspection Palpation (GI): Soft to palpation Percussion: Yes normal to percussion Auscultation: normal bowel sounds General: Yes no CVA tenderness Back/Spine/Pelvis Back: no CVA tenderness Skin General skin exam: no petechiae and no purpura Neuro General: patient oriented x3 and no focal motor deficits Extrem General: No clubbing and No edema Results Reviewed Nephrology Results: Hgb 13.0 g/dl (12.0-16.0) 03/05/24 WBC 6.3 X10*3/uL (4.8-10.8) 03/05/24 Plt Count 130 X10*3/uL (160-400) L 03/05/24 Sodium 141 mmol/L (135-145) 10/27/24 Potassium 4.1 mmol/L (3.3-5.1) 10/27/24 Chloride 109 mmol/L (96-108) H 10/27/24 Carbon Dioxide 25 mmol/L (22-29) 10/27/24 BUN 26 mg/dL (9-16) H 10/27/24 Creatinine 0.79 mg/dL (0.5-1.4) 10/27/24 Calcium 9.7 mg/dL (8.4-10.2) 10/27/24 Phosphorus 3.5 mg/dL (2.7-4.5) 03/05/24 PTH Intact 99.0 pg/mL (8.7-77.1) H 10/27/24 Assessment & Plan Assessment & Plan (1) Nephrolithiasis: Code(s): N20.0 - Calculus of kidney Category: Medical (2) HTN (hypertension): Code(s): I10 - Essential (primary) hypertension Category: Medical Plan 63-year-old woman with nephrolithiasis. At present she is asymptomatic. However she believes she still has some stones. 24 urine collection for the urine studies. Showed mild hyperoxaluria The meantime encouraged to stay on low-sodium diet and increase her fluid intake to maintain a urine output of at least 2 L in 24 hour. She is currently on Topamax. Topamax can cause slice and foam renal stones. Therefore encouraged her to increase her fluid intake to keep the urine dilute. It is unclear as to why she is on Topamax. If he continues to have recurrent nephrolithiasis it may be worthwhile to try alternate agents to replace Topamax. Stay on Vit D Hypertension Blood pressure has been well controlled today Orders: Orders Basic Metabolic Panel 5 Months I10 - Essential (primary) hypertension, N20.0 - Calculus of kidney Parathyroid Hormone Intact 5 Months I10 - Essential (primary) hypertension, N20.0 - Calculus of kidney Coding Level of Care Code Est Pt Level 4 (05213) Diagnoses Nephrolithiasis N20.0 HTN (hypertension) I10
== END 2024-11-01 10:32 | disposition home or self-care (01) ==
PROVIDERS: PCP Family Medicine; Visit Provider Internal Medicine Hypertension Specialist
DX: N20.0 Calculus of kidney (principal); I10 Essential (primary) hypertension
CPT/HCPCS: 99214

== ENCOUNTER → 2024-11-01 10:01 | Outpatient (BNVA) | payer OTHER, SELFPAY | PROVIDERS: PCP Family Medicine; Visit Provider Internal Medicine Hypertension Specialist | DX: Z03.89 Encounter for observation for other suspected diseases and conditions ruled out (principal); N20.0 Calculus of kidney; I10 Essential (primary) hypertension | CPT/HCPCS: 99212 ==

== ENCOUNTER 2024-11-01 12:51 | Outpatient (AMB) | payer OTHER, SELFPAY ==
--- NOTE | 2024-11-01 13:03 | MHC.OFFVIS ---
Intake Visit Reasons: lump on vagina Fire Safety Inspector Required: Yes Fire Safety Inspector Language: Ciaio Lumite Injector Services: Fire Safety Inspector Present (in person) Fire Safety Inspector Name: Sabrina Montez CHAZ Information Interpreted: non-clinical & clinical Internal Combustion Engine Inspector: Internal Combustion Engine Inspector Present (Sabrina Tc WARE) Accompanied by: Self / Same As Patient Allergies aspirin Allergy (Unknown, Verified 11/01/24 13:07) Rash ibuprofen Allergy (Unknown, Verified 11/01/24 13:07) Rash loratadine Allergy (Unknown, Verified 11/01/24 13:07) Rash pneumococcal vaccine Allergy (Unknown, Verified 11/01/24 13:07) Rash Penicillins Allergy (Verified 11/01/24 13:07) Rash Seafood Allergy (Unknown, Uncoded 11/01/24 13:07) Rash flu vaccine Allergy (Uncoded 11/01/24 13:07) Rash shingles vaccine Allergy (Uncoded 11/01/24 13:07) rash Post menopausal: Yes HPI Comments Details: The patient is presenting complaining of left vulvar lump of 4 day duration no associated pain or discharge or any other concerns [facility] Medical History History of kidney stones HTN (hypertension) Nephrolithiasis Surgical History H/O eye surgery History of carpal tunnel surgery S/P removal of left ovary Hx of tubal ligation History of section Family History Sister Diabetes Cancer Father Cancer Social History Household Members: None Housing: House Alcohol intake: never Patient Tobacco Use Status: Former Tobacco user Current occupational status: disabled Sexual orientation: Straight/Heterosexual Gender identity: Female Review of Systems Const All systems reviewed & are unremarkable except as noted in HPI and below Physical Exam General: Yes no CVA tenderness External Female Exam: normal external appearance, normal appearance of the urethra and other (No evidence of lumps) Speculum Exam - Vagina: normal appearance of the vagina, normal palpation, no lesions and no masses Speculum Exam - Cervix: normal appearance of the cervix, normal palpation, no lesions, no masses and nontender Bimanual exam- vagina & uterus: normal bimanual exam, normal palpation, uterine size normal, normal palpation, uterine shape normal, No Cervical tenderness present and non-tender Bimanual Exam- Adnexa, other: normal adnexae Back/Spine/Pelvis Back: no CVA tenderness Assessment & Plan Assessment & Plan (1) Normal exam: Code(s): Z00.00 - Encounter for general adult medical examination without abnormal findings Category: Medical Plan: Discussed with the patient the normal finding on pelvic exam no evidence of vulvar lumps or lesions, instructions given the patient to call in case symptoms recur to call back for re-evaluation. All questions answered, the patient verbalized understanding Coding Level of Care Code Est Pt Level 3 (03180) Diagnoses Normal exam Z00.00
== END 2024-11-01 13:41 | disposition home or self-care (01) ==
LOC: HO.HWS 12:51
PROVIDERS: PCP Family Medicine; Visit Provider Obstetrics & Gynecology
DX: Z71.1 Person with feared health complaint in whom no diagnosis is made (principal)
CPT/HCPCS: 99213

== ENCOUNTER 2025-02-06 10:48 | Outpatient (AMB) | payer OTHER, SELFPAY ==
--- NOTE | 2025-02-06 10:49 | A.OFFVIS_ITS ---
Vital Signs 02/06/25 11:03 Height 5 ft 2 in Weight 133 lb 13.129 oz BMI 24.5 BP 115/60 Blood Pressure Location Lt brachial Position Sitting Pulse 68 Pulse Source Pulse Oximeter Pulse Oximetry (%) 98 Oxygen Delivery Method Room Air Intake Visit Reasons: Osteoporosis/New Patient Intake Note: Patient presents for Osteoporosis. Building Maintenance Repairer Required: Yes Building Maintenance Repairer Language: Billet Heater Services: Building Maintenance Repairer Present Building Maintenance Repairer Name: Cailin Bejarano Information Interpreted: non-clinical & clinical Set Designer: Set Designer Present (Cailin Bejarano) Accompanied by: Building Maintenance Repairer Allergies aspirin Allergy (Unknown, Verified 02/06/25 11:00) Rash ibuprofen Allergy (Unknown, Verified 02/06/25 11:00) Rash loratadine Allergy (Unknown, Verified 02/06/25 11:00) Rash pneumococcal vaccine Allergy (Unknown, Verified 02/06/25 11:00) Rash Penicillins Allergy (Verified 02/06/25 11:00) Rash Seafood Allergy (Unknown, Uncoded 11/01/24 13:07) Rash flu vaccine Allergy (Uncoded 11/01/24 13:07) Rash shingles vaccine Allergy (Uncoded 11/01/24 13:07) rash Medication List - Last Reconciled 02/06/25 by Rena Medel MD acetaminophen ER 650 mg PO Q12H PRN aripiprazole 2 mg PO BEDTIME buspirone 15 mg PO BID cetirizine (All Day Allergy (cetirizine)) 10 mg PO DAILY PRN cholecalciferol (vitamin D3) 25 mcg PO DAILY citalopram (Celexa) 20 mg PO DAILY clopidogrel (Plavix) 75 mg PO DAILY diclofenac sodium 1% topical diphenhydramine HCl (Allergy (diphenhydramine)) 25 mg PO BEDTIME PRN docusate sodium (DOK) 100 mg PO BID epinephrine IM gabapentin mg PO DAILY PRN ketotifen fumarate 0.025%(0.035%) drps ophthalmic (eye) losartan 50 mg PO DAILY melatonin 3 mg PO BEDTIME PRN montelukast (Singulair) 10 mg PO DAILY oxycodone 5 mg PO BID PRN pantoprazole DR 40 mg PO DAILY rosuvastatin 20 mg PO BEDTIME sennosides (senna) 8.6 mg PO DAILY simethicone (Gas Relief Extra Strength) 125 mg PO QID topiramate (Topamax) 100 mg PO DAILY triamcinolone acetonide intranasal valacyclovir 500 mg PO DAILY HPI Comments Details: Patient is a 64 y.o. female with HTN c/b CAD, HLD, and osteoporosis here today to establish care for the management of osteoporosis Patient states that she was diagnosed with osteoporosis ?a while ago? and was sent to endocrinology where they wanted to start her on an injection however she wanted to get a 2nd opinion. No history of falls or fractures. Risk Factor Assessment: ? Menarche: Started at age 13, menopause at age 48 ? Family history including hip fracture: No ? Estrogen deficiency: No ? Sedentary lifestyle: Yes ? Cigarette smoking: Does not smoke ? Excessive alcohol: Not drink alcohol ? Excessive caffeine: No excessive caffeine No high-risk medication taken such as: ? Glucocorticoids ? Excess thyroid hormone ? Anticonvulsants ? Heparin ? [place] ? SSRIs ? Aromatase Also has polyarticular osteoarthritis for which she is complains of polyarti cular joint pain. Specifically today she is complaining of right 2nd PIP pain PFSH Medical History History of kidney stones HTN (hypertension) Nephrolithiasis Surgical History H/O eye surgery History of carpal tunnel surgery S/P removal of left ovary Hx of tubal ligation History of section Family History Sister Diabetes Cancer Father Cancer Social History Household Members: None Housing: House Alcohol intake: never Patient Tobacco Use Status: Former Tobacco user Current occupational status: disabled Sexual orientation: Straight/Heterosexual Gender identity: Female Review of Systems Const Details: Review of Systems Constitutional: Denies fever, chills, weight loss ENT: Denies vision changes, eye pain or eye redness, dental caries, dry mouth GI: Denies nausea, vomiting, diarrhea, abdominal pain, change in BM Pulm: Denies SOB, AMBROCIO, hemoptysis, wheezing Cards: Denies chest pain, palpitations Skin: Denies Raynaud's, rash, nail changes, photosensitivity, SENIOR NETWORK ENGINEER: Denies headaches, weakness, paresthesias, recurrent falls MSK: as per HPI All other systems reviewed and are unremarkable except noted above Physical Exam Vital signs reviewed Physical Examination CONSTITUITIONAL Patient alert and cooperative. Well appearing and in no apparent painful distress HEENT Conjunctiva and sclera clear. ?Pupils equal round and reactive to light. ?No lymphadenopathy. ? CHEST/RESPIRATORY SYSTEM Normal respiratory effort and able to speak in complete sentences. ?Clear to auscultation bilaterally. ?No crackles, rales, rhonchi, wheezes heard. CARDIAC SYSTEM Regular rate and rhythm. ?S1 and S2 heard no murmurs. ?Radial pulses intact bilaterally MSK Hands: ?Able to make a fist. No synovitis noted to the MCPs, PIPs or DIPs. ?Very prominent Heberden nodes and Anjelica's nodes. Tenderness to palpation of the right 2nd PIP associated with a Heberden's node Wrists: ?Full range of motion at the wrists without pain. ?No tenderness to palpation or synovitis noted to the wrists. Elbows: Full range of motion without pain. No tenderness, weakness, swelling, increased warmth or erythema. Shoulders: Full range of active range of motion without pain. No tenderness, weakness, swelling, increased warmth or erythema. Knees: ?Full range of motion. ?No tenderness, swelling, increased warmth or erythema.? No effusion but bilateral crepitations felt Ankles: Full range of motion. ?No tenderness, swelling, increased warmth or erythema.? Feet: ?Negative squeeze test. ?No tenderness to palpation or swelling of the MTPs. Tender points:?No tenderness to palpation of the bilateral trapezius, supraspinatus, greater trochanters, anterior costochondral junctions, bilateral gluteal areas, bilateral suboccipital muscle insertions SKIN Skin intact without rashes. Results Reviewed Results Reviewed: Laboratory Tests 03/05/24 10/27/24 15:25 09:25 Sodium 141 Chloride 109 H Carbon Dioxide 25 BUN 26 H Creatinine 0.79 AST 41 H ALT 46 H 25-OH Vitamin D Total 36 XR Left Hand/Wrist FINDINGS: No fracture or subluxation. Mild multifocal degenerative osteoarthritis with joint space narrowing, trace subcortical sclerosis and small marginal osteophytes more prominent in the distal interphalangeal joints. No osseous erosions. No unusual soft tissue calcifications. IMPRESSION: 1. No acute fracture or subluxation. 2. Mild multifocal degenerative osteoarthritis. Assessment & Plan Assessment & Plan (1) Generalized osteoarthritis: Code(s): M15.9 - Polyosteoarthritis, unspecified Plan: #Generalized OA Patient is a 64-year-old female with polyarticular osteoarthritis here today to establish care. Discussed with patient the chronicity and natural history of osteoarthritis. She is currently using topical diclofenac. I recommended increasing the frequency to 4 times a day. We can consider joint injections in the future if patient would like that Plan - Topical diclofenac 1% 4 times a day - Tylenol arthritis 650mg bid (2) Osteoporosis: Code(s): M81.0 - Age-related osteoporosis without current pathological fracture Qualifiers: Osteoporosis type: age-related Presence of current pathological fracture: unspecified Qualified Code(s): M81.0 - Age-related osteoporosis without current pathological fracture Plan: #Osteoporosis Patient carries a diagnosis of osteoporosis however DEXA scan not seen. Patient notes that her last DEXA scan was ?a while ago?. We will repeat her DEXA and check a vitamin-D Plan - Repeat DEXA - Check Vit D - RTC 3 months to review DEXA and NM scan (3) Hyperparathyroidism: Code(s): E21.3 - Hyperparathyroidism, unspecified Plan: #Elevated PTH Patient with elevated PTH without known diagnosis or workup for hyperparathyroidism. In the setting of osteoporosis the treatment may be parathyroidectomy. We will recheck her parathyroid as well as get a NM parathyroid scan Plan - PTH - NM Parathyroid scan Plan I spent 30 minutes reviewing the record and labs, taking a history, examining the patient, discussing the treatment plan, ordering diagnostic work up and documenting in the medical record Orders: Orders XR DEXA axial skeleton Today M81.0 - Age-related osteoporosis without current pathological fracture Complete Blood Count Auto Diff Today E21.3 - Hyperparathyroidism, unspecified Comprehensive Met. Panel Today E21.3 - Hyperparathyroidism, unspecified Vitamin D 25-OH (D2 and D3) Today E21.3 - Hyperparathyroidism, unspecified, E55.9 - Vitamin D deficiency, unspecified NM parathyroid Today E21.3 - Hyperparathyroidism, unspecified C Reactive Protein Today E21.3 - Hyperparathyroidism, unspecified Erythrocyte Sedimentation Rate Today E21.3 - Hyperparathyroidism, unspecified Parathyroid Hormone Intact Today E21.3 - Hyperparathyroidism, unspecified Coding Level of Care Code Est Pt Level 3 (48873) Diagnoses Generalized osteoarthritis M15.9 Age related osteoporosis, unspecified pathological fracture presence M81.0 Osteoporosis type: age-related Presence of current pathological fracture: unspecified Hyperparathyroidism E21.3
[2025-02-06 11:03] VITALS: BP 115/60; PULSE 68; O2SAT 98; BMI 24.5
== END 2025-02-06 11:30 | disposition home or self-care (01) ==
LOC: HO.RHE 10:48
PROVIDERS: PCP Family Medicine; Visit Provider Student in an Organized Health Care Education/Training Program
DX: M15.9 Polyosteoarthritis, unspecified (principal); M81.0 Age-related osteoporosis without current pathological fracture; E21.3 Hyperparathyroidism, unspecified
CPT/HCPCS: 99213

== ENCOUNTER 2025-02-06 10:48 | Outpatient (REF) | payer OTHER, SELFPAY ==
[2025-02-06 11:50] LABS: MANUAL DIFF FLAG NO
[2025-02-06 12:11] LABS: Basophils Percent Auto 0.4 % (0-2); Eosinophils Percent Auto 0.8 % (0-4); Hematocrit 38.6 % (37.0-47.0); Hemoglobin 12.8 g/dl (12.0-16.0); Imm Gran Abs Auto 0.01 X10*3/uL (0.00-0.03); Imm Gran Pct Auto 0.2 % (0.0-0.4); Lymphocytes Absolute Auto 1.4 X10*3/uL (1.2-4.9); Lymphocytes Percent Auto 26.4 % (20-40); Mean Corpuscular HGB Conc 33.2 g/dl (31.0-35.0); Mean Corpuscular Hemoglobin 30.2 pg (27.0-33.0); Mean Platelet Volume 11.1 fL (9.4-12.3); Monocytes Absolute Auto 0.6 X10*3/uL (0.1-1.2); Monocytes Percent Auto 10.7 % (2-11); Neutrophils Absolute Auto 3.2 x10*3/uL (2.0-8.3); Neutrophils Percent Auto 61.5 % (45-73); Platelet Count 125 X10*3/uL (160-400); Red Blood Count 4.24 X10*6/uL (4.20-5.50); Red Cell Distribution Width 14.2 % (11.0-16.0); White Blood Count 5.2 X10*3/uL (4.8-10.8)
[2025-02-06 12:40] LABS: Alanine Aminotransferase 33 U/L (0-31); Albumin Level 4.1 g/dL (3.5-5.0); Alkaline Phosphatase 89 U/L (39-117); Anion Gap 10 (12-20); Aspartate Amino Transferase 33 U/L (5-31); Bilirubin Total 0.5 mg/dL (0.0-1.0); Blood Urea Nitrogen 27 mg/dL (9-16); C Reactive Protein < 0.10 mg/dL (< or = 0.50); Calcium 9.5 mg/dL (8.4-10.2); Carbon Dioxide 25 mmol/L (22-29); Chloride 110 mmol/L (96-108); Estimated Glomerular Filt Rate > 60; Glucose Random 89 mg/dL (60-115); Sodium 141 mmol/L (135-145); Total Protein 7.5 g/dL (6.5-8.0)
[2025-02-06 13:12] LABS: Erythrocyte Sedimentation Rate 16 MM/HR (0-20)
[2025-02-06 14:44] LABS: Parathyroid Hormone Intact 79.2 pg/mL (8.7-77.1)
[2025-02-10 16:23] LABS: Vitamin D 25-OH, D2 9 ng/mL; Vitamin D 25-OH, D3 35 ng/mL; Vitamin D 25-OH, Total 44 ng/mL (30-100)
== END 2025-02-06 10:49 | disposition home or self-care (01) ==
LOC: HO.LAB 10:48
PROVIDERS: PCP Family Medicine; Visit Provider Student in an Organized Health Care Education/Training Program
DX: M81.0 Age-related osteoporosis without current pathological fracture (principal); E21.3 Hyperparathyroidism, unspecified; E55.9 Vitamin D deficiency, unspecified; M15.9 Polyosteoarthritis, unspecified
CPT/HCPCS: 36415; 80053; 82306; 83970; 85025; 85652; 86140; 99212

== ENCOUNTER → 2025-03-05 10:59 | Outpatient (REF) | payer OTHER, SELFPAY ==
--- NOTE | ~2025-03-05 | NM_ITS ---
EXAMINATION: NM PARATHYROID HISTORY: E21.3 - Hyperparathyroidism, unspecified. TECHNIQUE: A parathyroid imaging study was performed following the intravenous administration of 30 mCi technetium 99m-sestamibi. Planar images of the neck were obtained at 20 minutes and 2 hours. SPECT imaging of the neck and upper chest was performed at 2 hours. COMPARISON: There are no prior studies for comparison. FINDINGS: Early images of the neck demonstrate a homogeneous distribution of activity in both thyroid lobes. No foci of abnormal activity are identified. Delayed images demonstrate washout from the thyroid. No residual activity is seen to suggest a parathyroid adenoma. This is confirmed on SPECT imaging. NM/NM parathyroid IMPRESSION: No scintigraphic evidence of a parathyroid adenoma. Electronically signed by: Khurram Rivera MD 03/06/2025 07:03 AM EDT
== END ==
LOC: HO.NUCMED 10:59
PROVIDERS: PCP Family Medicine; Visit Provider Student in an Organized Health Care Education/Training Program
DX: E21.3 Hyperparathyroidism, unspecified (principal)
CPT/HCPCS: 78070; A9500

== ENCOUNTER → 2025-03-05 11:03 | Outpatient (BNV) | payer OTHER, SELFPAY | PROVIDERS: PCP Family Medicine; Visit Provider Radiology Diagnostic Radiology | DX: E21.3 Hyperparathyroidism, unspecified (principal) | CPT/HCPCS: 78070 ==

== ENCOUNTER 2025-04-02 15:56 | Outpatient (REF) | payer OTHER, SELFPAY ==
[2025-04-02 18:26] LABS: Anion Gap 11 (12-20); Blood Urea Nitrogen 16 mg/dL (9-16); Calcium 9.4 mg/dL (8.4-10.2); Carbon Dioxide 28 mmol/L (22-29); Chloride 107 mmol/L (96-108); Estimated Glomerular Filt Rate > 60; Potassium 4.2 mmol/L (3.3-5.1); Sodium 142 mmol/L (135-145)
[2025-04-02 18:39] LABS: Parathyroid Hormone Intact 89.2 pg/mL (8.7-77.1)
== END 2025-04-02 15:57 | disposition home or self-care (01) ==
LOC: HO.HKASLDS 15:56
PROVIDERS: Visit Provider Internal Medicine Hypertension Specialist
DX: I10 Essential (primary) hypertension (principal); N20.0 Calculus of kidney
CPT/HCPCS: 36415; 80048; 83970

== ENCOUNTER 2025-04-09 09:55 | Outpatient (AMB) | payer OTHER, SELFPAY ==
[2025-04-09 10:03] VITALS: BP 118/64; PULSE 84; O2SAT 97; BMI 25.1
--- NOTE | 2025-04-09 10:03 | A.OFFVIS_ITS ---
Vital Signs 04/09/25 10:03 Height 5 ft 2 in Weight 137 lb BMI 25.1 BP 118/64 Blood Pressure Location Rt brachial Position Sitting Pulse 84 Pulse Source Pulse Oximeter Pulse Oximetry (%) 97 Oxygen Delivery Method Room Air Intake Visit Reasons: Hypertension Storage Wharfage Clerk Required: Yes Storage Wharfage Clerk Name: lucia [id number] Accompanied by: Self / Same As Patient Allergies aspirin Allergy (Unknown, Verified 04/09/25 10:05) Rash ibuprofen Allergy (Unknown, Verified 04/09/25 10:05) Rash loratadine Allergy (Unknown, Verified 04/09/25 10:05) Rash pneumococcal vaccine Allergy (Unknown, Verified 04/09/25 10:05) Rash Penicillins Allergy (Verified 04/09/25 10:05) Rash Seafood Allergy (Unknown, Uncoded 11/01/24 13:07) Rash flu vaccine Allergy (Uncoded 11/01/24 13:07) Rash shingles vaccine Allergy (Uncoded 11/01/24 13:07) rash Medication List - Last Reconciled 04/09/25 by Saman Schaefer MD acetaminophen ER 650 mg PO Q12H PRN aripiprazole 2 mg PO BEDTIME buspirone 15 mg PO BID cetirizine (All Day Allergy (cetirizine)) 10 mg PO DAILY PRN cholecalciferol (vitamin D3) 25 mcg PO DAILY citalopram (Celexa) 20 mg PO DAILY clopidogrel (Plavix) 75 mg PO DAILY diclofenac sodium 1% topical diphenhydramine HCl (Allergy (diphenhydramine)) 25 mg PO BEDTIME PRN docusate sodium (DOK) 100 mg PO BID epinephrine IM gabapentin mg PO DAILY PRN ketotifen fumarate 0.025%(0.035%) drps ophthalmic (eye) losartan 50 mg PO DAILY melatonin 3 mg PO BEDTIME PRN montelukast (Singulair) 10 mg PO DAILY oxycodone 5 mg PO BID PRN pantoprazole DR 40 mg PO DAILY rosuvastatin 20 mg PO BEDTIME sennosides (senna) 8.6 mg PO DAILY simethicone (Gas Relief Extra Strength) 125 mg PO QID topiramate (Topamax) 100 mg PO DAILY triamcinolone acetonide intranasal valacyclovir 500 mg PO DAILY HPI Comments Details: 61-year-old woman with a history of hypertension and nephrolithiasis he is here for further evaluation of renal stones. About 3 years ago she underwent lithotripsy. She has had no further follow-up with respect to renal stones and she self-referred herself. Her mother is also her patient of mine. Today she denies any new complaints. No dysuria urgency increased frequency. No hematuria. No line pain or flank pain. 09/20/23 Doing well No new complaints underwent 24 hr Urine collection 04/09/25 Doing well No new stones Parathyroid scan - was normal Serum calcium normal Urinary calcium excretion- normal PTH 82 and stable. [facility] Medical History History of kidney stones HTN (hypertension) Nephrolithiasis Surgical History H/O eye surgery History of carpal tunnel surgery S/P removal of left ovary Hx of tubal ligation History of section Family History Sister Diabetes Cancer Father Cancer Social History Household Members: None Housing: House Alcohol intake: never Patient Tobacco Use Status: Former Tobacco user Current occupational status: disabled Sexual orientation: Straight/Heterosexual Gender identity: Female Physical Exam Vital Signs: Last Vital Signs Pulse 84 04/09/25 10:03 BP 118/64 04/09/25 10:03 Pulse Ox 97 04/09/25 10:03 Oxygen Delivery Method Room Air 04/09/25 10:03 BMI result Body Mass Index 25.1 Const General: comfortable; No acute distress Orientation/consciousness: patient oriented x3 Eyes General: appearance normal, both eyes and all related structures Visual Joseph: normal visual joseph by confrontation Neck Neck: Yes supple and Yes no JVD Resp Effort & Inspection: normal respiratory effort and respiratory effort not decreased Auscultation: rhonchi Cardio Palpation: no palpable S3 and no palpable S4 Heart sounds: no rubs GI Inspection: Yes normal to inspection Palpation (GI): Soft to palpation Percussion: Yes normal to percussion Auscultation: normal bowel sounds General: Yes no CVA tenderness Back/Spine/Pelvis Back: no CVA tenderness Skin General skin exam: no petechiae and no purpura Neuro General: patient oriented x3 and no focal motor deficits Extrem General: No clubbing and No edema Assessment & Plan Assessment & Plan (1) Nephrolithiasis: Code(s): N20.0 - Calculus of kidney Category: Medical (2) HTN (hypertension): Code(s): I10 - Essential (primary) hypertension Category: Medical Plan 64-year-old woman with nephrolithiasis. At present she is asymptomatic. However she believes she still has some stones. 24 urine collection for the urine studies. Showed mild hyperoxaluria The meantime encouraged to stay on low-sodium diet and increase her fluid intake to maintain a urine output of at least 2 L in 24 hour. She is currently on Topamax. Topamax can cause renal stones. Therefore encouraged her to increase her fluid intake to keep the urine dilute. It is unclear as to why she is on Topamax. If he continues to have recurrent nephrolithiasis it may be worthwhile to try alternate agents to replace Topamax. Stay on Vit D Hypertension Blood pressure has been well controlled today Orders: Orders Basic Metabolic Panel 6 Months N20.0 - Calculus of kidney UA and rflx microscopic 6 Months N20.0 - Calculus of kidney Coding Level of Care Code Tele New Pt Level 4 (09715) Diagnoses Nephrolithiasis N20.0 HTN (hypertension) I10
--- OUTSIDE RECORDS SUMMARY | 2025-04-09 10:35 | XMS_ITS | Data Portability ---
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 Name Role Phone VIJAY BALBUENA Primary Care Provider [phone] Assessment Encounter Date Assessment Date Assessment LastModified by Organization Details LastModified Time 12/11/2024 12/11/2024 Visit With: Leticia Mccollum RN Use of Antihistamines: No If yes: Vial Test Yes Change in medications: No If yes Increase in asthma symptoms No If yes, inhaler use: Reaction to last injections: No If yes: Allergy Symptoms: Other: Missed: Dose Aware of Vial Test Notes: [email or web address] Not available 12/11/2024 09:56:30 01/10/2025 01/10/2025 Visit With: Leticia Mccollum RN Use of Antihistamines: Yes If yes: Vial Test Change in medications: No If yes Increase in asthma symptoms No If yes, inhaler use: Reaction to last injections: No If yes: Allergy Symptoms: Other: Missed: Dose Aware of Vial Test Notes: [email or web address] Not available 01/10/2025 08:59:25 02/08/2025 02/08/2025 Visit With: CHAZ Cevallos Use of Antihistamines: No If yes: Vial Test Change in medications: No If yes Increase in asthma symptoms If yes, inhaler use: Reaction to last injections: No If yes: Allergy Symptoms: Other: Missed: Dose Aware of Vial Test Notes: ana Not available 02/08/2025 15:08:26 03/12/2025 03/12/2025 Visit With: Mae Gorman Use of Antihistamines: Yes If yes: Vial Test Change in medications: No If yes Increase in asthma symptoms If yes, inhaler use: Reaction to last injections: No If yes: Allergy Symptoms: Other: Missed: Dose Aware of Vial Test Aware: Notes: [email or web address] Not available 03/12/2025 13:24:11 03/20/2025 03/20/2025 Patient is doing well on immunotherapy program. They are compliant with therapy. Symptoms are improving, but not yet resolved. They will continue with treatment and followup in 6 months. All questions were answered. She has completed 2 years of monthly shots and I offered her to conclude treatment at this time. She requests to continue as she feels benefit from treatment. A new epipen was also sent to her pharmacy [email or web address] Not available 03/20/2025 09:13:49 Plan of Treatment Reminders Order Date Submit Date Provider Last Modified By Organization Details Last Modified Time Details Appointments Estabs hed- Allergy f-up 6mon 2025 09:00A M CONSTANTINO ANDUJAR MD Not available Not available Not available Lab None recorded . Referral None recorded . Procedures None recorded . Surgeries None recorded . Imaging None recorded . Medication Orders EpiPen 2-Jb 0.3 mg/0.3 mL injectio n, auto-inj apula 2024 025 [id number], [address] [place] [address], [phone], 03/20/2025 09:13:24 Patient TargetsNo targets recorded. Patient InstructionsNo instructions recorded. Reason for Referral None Reported. 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 Temporoma ndibular joint disorder; Note: Date Diagnosed : 10/09/2014 2:21 PM (524.60) Not Available [facility] 4 02:31:22 Tinnitus 24217123 Active 2014 Tinnitus, unspecifi ed; Note: Date Diagnosed : 10/09/2014 2:50 PM (388.30) Not Available [facility] 4 02:31:08 Impacted cerumen of bilateral ears [id number] 95149 Active 2014 Impacted cerumen, bilateral ; Note: Date Diagnosed : 04/09/2015 11:03 AM (H61.23) [mapped from ICD9 code: 380.4] Not Available [facility] 4 02:31:19 Dysphonia 73843169 Active 2018 Hoarsenes s; Note: Date Diagnosed : 04/03/2019 9:27 AM (R49.0) Not Available [facility] 4 02:31:16 Gastroeso phageal reflux disease without esophagit is 674463499 Active 2019 Gastro-es ophageal reflux disease without esophagit is; Note: Date Diagnosed : 10/02/2019 10:28 AM (K21.9) Not Available [facility] 4 02:31:12 Acute laryngiti s 1672589 Active 2019 Acute laryngiti s; Note: Date Diagnosed : 10/02/2019 10:28 AM (J04.0) Not Available [facility] 4 02:31:13 Mild intermitt ent asthma 951930770 Active 2019 Mild intermitt ent asthma NOS; Note: Date Diagnosed : 0 2:31 PM (J45.20) Not Available [facility] 4 02:31:25 Acute sinusitis 57617512 Active 2020 Other acute sinusitis ; Note: Date Diagnosed : 01/23/2021 1:08 PM (J01.80) Not Available [facility] 4 02:31:11 Finding of resonance of voice 316172294 Active 2022 Unspecifi ed voice and resonance disorder; Note: Date Diagnosed : 02/03/2023 6:17 AM (R49.9) Not Available [facility] 4 02:31:18 Stomatiti s 34068620 Active 2022 Oral thrush; Note: Date Diagnosed : 02/03/2023 6:17 AM (B37.0) Not Available [facility] 4 02:31:09 Candidias is of mouth 69108264 Active 2022 Oral thrush; Note: Date Diagnosed : 02/03/2023 6:17 AM (B37.0) Not Available [facility] 4 02:31:09 Allergic rhinitis 52757888 Active 2023 SCIT Apr 2020 monthly shots since 11/2022 CONSTANTINO ANDUJAR MD [address] [facility],[address], [place], [address] , [facility] - [facility] 4 08:51:04 Perennial allergic rhinitis 512449046 Active 2023 CHAZ VALDIVIA [address] [facility],[place] [address], [place], [phone] , [facility] - [facility] 12:52:13 Problem Notes None recorded. Procedures Surgical History Date Name Laterality Status Provider Name and Address Organization Details Recorded Time 03/12/20 25 Allergy Immunotherapy Injections completed CHAZ VALDIVIA [address] [facility],[address] [facility], [place], [address], [facility] - [facility] 03/12/2025 13:23:41 02/09/20 25 Allergy Immunotherapy Injections completed CHAZ CEVALLOS [address] [place] [address], [phone], [facility] - [facility] 02/08/2025 15:08:18 01/11/20 25 Allergy Immunotherapy Injections completed LETICIA MCCOLLUM RN 100 [facility],[address], [address], [facility] - [facility] 01/10/2025 08:59:19 12/12/19 25 Allergy Immunotherapy Injections completed LETICIA MCCOLLUM RN 100 [facility],[address], [address], [facility] - [facility] 12/11/2024 09:56:21 11/14/19 25 Allergy Immunotherapy Injections completed CHAZ CEVALLOS 100 [facility],[address] [place] [address], [phone], [facility] - [facility] 11/13/2024 09:59:03 10/16/19 25 Allergy Immunotherapy Injections completed MAE GORMAN RMA [address], [place], [address], [place] - [facility] 10/16/2024 09:14:46 09/17/19 25 Wax_DP completed CONSTANTINO ANDUJAR MD [address],[place] [facility], [place], [address], [place] [facility] 09/17/2024 09:42:19 09/13/19 25 Allergy Immunotherapy Injections completed MAE GORMAN RMA [address], [place], [address], [place] [facility] 09/13/2024 14:15:30 08/21/20 24 Allergy Immunotherapy Injections completed ORION RAPP RMA [address] [place] [address], [phone], [place] [facility] 08/21/2024 11:47:43 08/14/20 24 Allergy Immunotherapy Injections completed LETICIA MCCOLLUM RN [address] [place] [address], [phone], [place] [facility] 08/14/2024 10:09:09 07/17/20 24 Allergy Immunotherapy Injections completed GUILLAUME VALDIVIAA [address] [place] [address], [phone], [place] [facility] 07/17/2024 10:08:40 06/15/20 24 Allergy Immunotherapy Injections completed ORION RAPP RMA [address] [place] [address], [phone], [place] [facility] 06/15/2024 13:13:55 05/22/20 24 Allergy Immunotherapy Injections completed ORION RAPP RMA [address] [place] [address], [phone], [place] [facility] 05/22/2024 12:56:50 04/12/20 24 Allergy Immunotherapy Injections completed LETICIA MCCOLLUM RN [address] [place] [address], [phone], [place] [facility] 04/12/2024 09:47:30 03/13/20 24 Allergy Immunotherapy Injections completed GUILLAUME VALDIVIA 100 [facility],[address], [address], [facility] 03/13/2024 13:26:42 02/14/20 24 Allergy Immunotherapy Injections completed CHAZ VALDIVIA 100 [facility], [place], [address], [facility] 02/14/2024 12:52:32 Imaging Results None recorded. Procedure Notes None recorded. Medical Equipment None Reported. Allergies Allergen ID Allergen Name Allergen Category Reaction Reaction Severity Criticality Documentation Date Start Date Code Code System Note Provider Name and Address Organization Details Recorded Time 98045 loratadin e medicatio n other Not available Not available 01/24/2024 38507 RxNorm React ion: unkno wn, unspe cifie d;; Not Available [facility] 4 00:57:28 02479 ibuprofen medicatio n other Not available Not available 01/24/2024 5640 RxNorm React ion: unkno wn, unspe cifie d;; Not Available [facility] 4 00:57:30 17043 penicilli n V potassium medicatio n other Not available Not available 01/24/2024 98242 5 RxNorm React ion: unkno wn, unspe cifie d;; Not Available [facility] 4 00:57:34 30849 tramadol hydrochlo ride medicatio n other Not available Not available 01/24/2024 84786 RxNorm React ion: unkno wn, unspe cifie d;; Not Available [facility] 4 00:57:38 Medications Name Sig Start Date Stop Date Status Note LastModified by Organization Details LastModified Time vitamin d3 1,000 unit softg 03/20 completed Not Available Not Available Not Available losartan 50 mg tablet TAKE 1 TABLET BY MOUTH DAILY active Not Available Not Available No t Available acetic acid 2 % ear solution INSTILL 5 DROPS TO RIGHT EAR THREE TIMES DAILY FOR 7 DAYS 03/20 completed Not Available Not Available Not Available azelastin e 0.05 % eye drops INSTILL 1 DROP IN BOTH EYES TWICE DAILY NEEDED FOR ALLERGY SYMPTOMS active Not Available Not Available No t Available nystatin 100,000 unit/mL oral suspensio n by mouth 03/20 completed Medicati on ID: [id number] D uration Value: 14 Brand Name: nystatin Send Method: E-Prescr ibed Sub s Allowed: subs OK Speci al Instruct ion: 5 ml swish and spit four times daily x 2 weeks Me dication GenericN armida: nystatin Not Available Not Available Not Available doxycycli ne hyclate 100 mg capsule 03/20 completed Medicati on ID: [id number] D uration Value: 14 Prescri bed By Name: ROD Conley nd Name: doxycycl ine hyclate Send Method: E-Prescr ibed Sub s Allowed: subs OK Speci al Instruct ion: Take 1 PO BID X 14 days Med icationG enericNa me: doxycycl ine hyclate Not Available Not Available Not Available ketoconaz ole 2 % shampoo active Not Available Not Available Not Available Celexa 10 mg tablet 07/22 completed Medicati on ID: [id number] Br and Name: Celexa S end Method: E-Prescr ibed Sub s Allowed: subs OK Medic ationGen ericName : Celexa Not Available Not Available Not Available cetirizin e 10 mg tablet TAKE 1 TABLET BY MOUTH DAILY NEEDED FOR ALLERGY SYMPTOMS active Not Available Not Available No t Available cetirizin e 5 mg tablet 07/22 completed Medicati on ID: [id number] Br and Name: cetirizi ne Send Method: E-Prescr ibed Sub s Allowed: subs OK Medic ationGen ericName : cetirizi ne Not Available Not Available Not Available ketotifen 0.025 % (0.035 %) eye drops INSTILL 1 DROP INTO BOTH EYES EVERY 12 HOURS NEEDED FOR EYE ALLERGY 03/20 completed Not Available Not Available Not Available senna 8.6 mg tablet TAKE 2 TABLETS BY MOUTH TWICE DAILY NEEDED FOR CONSTIPA TION active Not Available Not Available No t Available sucralfat e 1 gram tablet TAKE 1 TABLET BY MOUTH TWICE DAILY ON AN ON AN EMPTY STOMACH 30 MINUTES BEFORE A MEAL 03/20 completed Not Available Not Available Not Available FreeStyle Lancets 28 gauge 03/20 completed Medicati on ID: [id number] D uration Value: 90 Brand Name: FreeStyl e Lancets Send Method: E-Prescr ibed Sub s Allowed: subs OK Speci al Instruct ion: USE FOR BLOOD SUGAR TESTING ONCE A DAY Medi cationGe nericNam e: FreeStyl e Lancets Not Available Not Available Not Available methylpre dnisolone 32 mg tablet TAKE 1 TABLET BY MOUTH 12 HOURS PRIOR TO EXAM AND TAKE 2ND TABLET 2 HOURS BEFORE EXAM 03/20 completed Not Available Not Available Not Available prednison e 20 mg tablet TAKE 2 TABLETS BY MOUTH DAILY FOR 5 DAYS 03/20 completed Not Available Not Available Not Available bacitraci n 500 unit/gram topical ointment 03/20 completed Not Available Not Available Not Available Advair Diskus 100 mcg-50 mcg/dose powder for inhalatio n 04/14 completed Medicati on ID: [id number] Re ason: () Brand Name: Advair Diskus S end Method: E-Prescr ibed Sub s Allowed: subs OK Medic ationGen ericName : Advair Diskus Not Available Not Available Not Available melatonin 3 mg tablet TAKE 1 TABLET BY MOUTH DAILY AT BEDTIME active Not Available Not Available No t Available clopidogr el 75 mg tablet TAKE 1 TABLET BY MOUTH DAILY active Not Available Not Available No t Available valacyclo vir 500 mg tablet TAKE 1 TABLET BY MOUTH DAILY active Not Available Not Available No t Available sulfameth oxazole 800 mg-trimet hoprim 160 mg tablet 04/14 completed Medicati on ID: [id number] D uration Value: 7 Reason: () Brand Name: sulfamet hoxazole -trimeth oprim Se nd Method: E-Prescr ibed Sub s Allowed: subs OK Speci al Instruct ion: TK 1 T PO BID FOR 7 DAYS. SEEMA PLENTY OF FLUIDS M edicatio nGeneric Name: sulfamet hoxazole -trimeth oprim Not Available Not Available Not Available doxycycli ne monohydra te 100 mg tablet 1 tablet by mouth 03/20 completed Medicati on ID: [id number] D uration Value: 14 Prescri bed By Name: ROD Lala nd Name: doxycycl ine monohydr ate Send Method: E-Prescr ibed Sub s Allowed: subs OK Medic ationGen ericName : doxycycl ine monohydr ate Not Available Not Available Not Available acetamino phen 500 mg tablet TAKE 1 TABLET BY MOUTH EVERY 4 HOURS NEEDED FOR PAIN. NOT TO EXCEED 2000MG A DAY 03/20 completed Not Available Not Available Not Available triamcino lone acetonide 0.1 % topical cream 03/20 completed Not Available Not Available Not Available acetamino phen ER 650 mg tablet,ex tended release TAKE 1 TABLET BY MOUTH EVERY 12 HOURS NEEDED FOR PAIN. NOT TO EXCEED 2 TABLETS PER DAY active Not Available Not Available No t Available ciclopiro x 8 % topical solution APPLY TOPICALL Y TO THE AFFECTED AREA OF THE NAIL. ON DAY 7 CLEAN WITH ALCOHOL AND START CYCLE AGAIN 03/20 completed Not Available Not Available Not Available citalopra m 20 mg tablet active Not Available Not Available Not Available prednisol one acetate 1 % eye drops,malia pension INSTILL 1 DROP INTO LASERED EYE THREE TIMES DAILY FOR 5 DAYS 03/20 completed Not Available Not Available Not Available DOK 100 mg capsule 04/14 completed Medicati on ID: [id number] D uration Value: 90 Reason: () Brand Name: PAOLO Send Method: E-Prescr ibed Sub s Allowed: subs OK Speci al Instruct ion: TK 1 C PO BID Medi cationGe nericNam e: DOK Not Available Not Available Not Available Triple Antibioti c 3.5 mg-400 unit-5,00 0 unit/gram topical ointment 03/20 completed Not Available Not Available Not Available YesmailToWonderflow Ultra Test strips USE DAILY FOR BLOOD SUGAR TESTING active Not Available Not Available No t Available carboxyme thylcellu lose sodium 0.5 % eye drops active Not Available Not Available Not Available pantopraz ole 40 mg tablet,de layed release TAKE 1 TABLET BY MOUTH DAILY 30 MINUTES BEFORE BREAKFAS T active Not Available Not Available No t Available buspirone 30 mg tablet TAKE 1 TABLET BY MOUTH TWICE DAILY. DO NOT EXCEED 60 MG DAILY 03/20 completed Not Available Not Available Not Available olopatadi ne 0.1 % eye drops 03/20 completed Medicati on ID: [id number] D uration Value: 45 Brand Name: celso ugalde Send Method: E-Prescr ibed Sub s Allowed: subs OK Speci al Instruct ion: INT 1 GTT IN OU QD FOR ALLERGY Medicati onGeneri cName: thutad aftab Not Available Not Available Not Available triamcino lone acetonide 55 mcg nasal spray aerosol SPRAY TWICE IN EACH NOSTRIL DAILY active Not Available Not Available No t Available glucose 4 gram chewable tablet TAKE 1 TABLET BY MOUTH NEEDED FOR LOW BLOOD GLUCOSE BELOW 70 active Not Available Not Available No t Available omeprazol e 20 mg capsule,d elayed release 1 capsule by mouth 12/23 completed Medicati on ID: [id number] D uration Value: 30 Prescri bed By Name: ROD Nichols nd Name: omeprazo le Send Method: E-Prescr ibed Sub s Allowed: subs OK Medic ationGen ericName : omeprazo le Not Available Not Available Not Available Banophen 25 mg capsule TAKE 1-2 CAPSULES BY MOUTH EVERY 6 HOURS NEEDED FOR ANAPHYLA CTIC REACTION 03/20 completed Not Available Not Available Not Available monteluka st 10 mg tablet active Not Available Not Available Not Available capsaicin 0.025 % topical cream APPLY THREE TIMES DAILY. AVOID CONTACT WITH FACE AND EYES. WASH HANDS THOROUGH LY AFTER EACH USE. 03/20 completed Not Available Not Available Not Available gabapenti n 100 mg capsule 03/20 completed Not Available Not Available Not Available azelastin e 137 mcg (0.1 %) nasal spray USE 2 SPRAYS IN EACH NOSTRIL TWICE DAILY 03/20 completed Not Available Not Available Not Available epinephri ne 0.3 mg/0.3 mL injection , auto-inje ctor INJECT 1 PEN IN THE MUSCLE ONE TIME DIRECTED active Not Available Not Available No t Available Nasonex 50 mcg/actua tion [place] 2 spray into both nostrils 03/20 completed Medicati on ID: [id number] Du ration Value: 30 Brand Name: Nasonex Send Method: E-Prescr ibed Sub s Allowed: subs OK Medic ationGen ericName : Nasonex Not Available Not Available Not Available polyethyl roe glycol 3350 17 gram/dose oral powder TAKE 17 GRAM S BY MOUTH EVERY DAY NEEDED FOR CONSTIPA TION active Not Available Not Available No t Available methylpre dnisolone 4 mg tablets in a dose pack 03/20 completed Not Available Not Available Not Available methylpre dnisolone 16 mg tablet TAKE 2 TABLETS BY MOUTH 12 HOURS PRIOR TO IMAGING AND REPEAT AGAIN 2 HOURS BEFORE IMAGING 03/20 completed Not Available Not Available Not Available topiramat e 100 mg tablet TAKE 1 TABLET BY MOUTH TWICE DAILY 03/20 completed Not Available Not Available Not Available losartan 100 mg tablet TAKE 1 TABLET BY MOUTH DAILY 90 DAYS 03/20 completed Not Available Not Available Not Available lisinopri l 2.5 mg tablet 12/23 completed Medicati on ID: [id number] Re ason: () Brand Name: lisinopr il Send Method: E-Prescr ibed Sub s Allowed: subs OK Medic ationGen ericName : lisinopr il Not Available Not Available Not Available Ambien 5 mg tablet 12/23 completed Medicati on ID: [id number] Re ason: () Brand Name: Ambien S end Method: E-Prescr ibed Sub s Allowed: subs OK Medic ationGen ericName : Ambien Not Available Not Available Not Available ipratropi um bromide 21 mcg (0.03 %) nasal spray 2018 active Medicati on ID: [id number] D uration Value: 84 Brand Name: ipratrop ium bromide Send Method: E-Prescr ibed Sub s Allowed: subs OK Medic ationGen ericName : ipratrop ium bromide Not Available Not Available Not Available glipizide 5 mg tablet 12/23 completed Medicati on ID: [id number] Re ason: () Brand Name: glipizid e Send Method: E-Prescr ibed Sub s Allowed: subs OK Medic ationGen ericName : glipizid e Not Available Not Available Not Available Artificia l Tears (polyviny l alcohol) 1.4 % eye drops 03/20 completed Medicati on ID: [id number] D uration Value: 15 Brand Name: Artifici al Tears (polyvin alc) Sen d Method: E-Prescr ibed Sub s Allowed: subs OK Speci al Instruct ion: INT 2 GTS IN OS QID PRN Medi cationGe nericNam e: Artifici al Tears (polyvin alc) Not Available Not Available Not Available Ventolin HFA 90 mcg/actua tion aerosol inhaler INHALE 2 PUFFS BY MOUTH FOUR TIMES DAILY NEEDED FOR WHEEZING OR SHORTNES S OF BREATH active Not Available Not Available No t Available oxycodone 5 mg tablet TAKE 1 TABLET BY MOUTH EVERY 4 HOURS NEEDED active Not Available Not Available No t Available neomycin 3.5 mg/g-poly myxin B 10,000 unit/g-de xameth 0.1 % eye oint APPLY TOPICALL Y TO THE AFFECTED EYELID TWICE DAILY 03/20 completed Not Available Not Available Not Available cholecalc iferol (vitamin D3) 25 mcg (1,000 unit) capsule TAKE 1 CAPSULE BY MOUTH DAILY active Not Available Not Available No t Available azithromy brii 500 mg tablet TAKE 1 TABLET BY MOUTH DAILY FOR 3 DAYS 03/20 completed Not Available Not Available Not Available escitalop lalo 10 mg tablet TAKE 1 TABLET BY MOUTH EVERY DAY 03/20 completed Not Available Not Available Not Available cyclobenz aprine 5 mg tablet active Not Available Not Available No t Available rosuvasta tin 10 mg tablet 03/20 completed Medicati on ID: [id number] D uration Value: 30 Brand Name: rosuvast atin Sen d Method: E-Prescr ibed Sub s Allowed: subs OK Speci al Instruct ion: TK 1 T PO D HS Medic ationGen ericName : rosuvast atin Not Available Not Available Not Available rosuvasta tin 20 mg tablet Take 1 tablet every day by oral route. active Not Available Not Available No t Available calcium 315 mg (as citrate)- vitamin D3 5 mcg (200 unit) tablet TAKE 2 TABLETS BY MOUTH TWICE DAILY 03/20 completed Not Available Not Available Not Available Gas Relief Extra Strength 125 mg chewable tablet CHEW AND SWALLOW 1 TABLET BY MOUTH FOUR TIMES DAILY TAKE BEFORE MEAL active Not Available Not Available No t Available doxycycli ne hyclate 100 mg tablet,de layed release 12/23 completed Medicati on ID: [id number] Afshan stewart By Name: Linda Brown, PA-C Bra nd Name: doxycycl ine hyclate Send Method: E-Prescr ibed Sub s Allowed: subs OK Speci al Instruct ion: 1 po bid X 14 days Med icationG enericNa me: doxycycl ine hyclate Not Available Not Available Not Available DermOtic Oil 0.01 % ear drops Instill 5 drop twice a day as directed 03/20 completed Medicati on ID: [id number] P rescribe d By Name: ROD Lala nd Name: DermOtic Oil Send Method: E-Prescr ibed Sub s Allowed: subs OK Medic ationGen ericName : DermOtic Oil Not Available Not Available Not Available aripipraz ole 2 mg tablet TAKE 1 TABLET BY MOUTH DAILY AT BEDTIME active Not Available Not Available No t Available cholecalc iferol (vitamin D3) 25 mcg (1,000 unit) tablet TAKE 1 TABLET BY MOUTH EVERY DAY 03/20 completed Not Available Not Available Not Available calcium 600 mg (as carbonate )-vitamin D3 10 mcg (400 unit) tablet TAKE 1 TABLET BY MOUTH TWICE DAILY. DISCONTI NUE VITAMIN DAILY 1000 IU 03/20 completed Not Available Not Available Not Available levocetir izine 5 mg tablet 12/16 completed Medicati on ID: [id number] D uration Value: 30 Brand Name: levoceti rizine S end Method: E-Prescr ibed Sub s Allowed: subs OK [facility] Not Available Not Available Not Available omeprazol e 20 mg tablet,de layed release 10/02 completed Medicati on ID: [id number] Re ason: () Brand Name: omeprazo le Send Method: E-Prescr ibed Sub s Allowed: subs OK Speci al Instruct ion: Take 1 tablet by mouth every day before a meal Med icationG enericNa me: omeprazo le Not Available Not Available Not Available diclofena c 1 % topical gel APPLY 2 GRAMS TOPICALL Y TO THE AFFECTED AREA FOUR TIMES DAILY FOR 14 DAYS active Not Available Not Available No t Available DOK 100 mg tablet TAKE 1 TABLET BY MOUTH TWICE DAILY 03/20 completed Not Available Not Available Not Available lidocaine 5 % topical ointment 2018 active Medicati on ID: [id number] D uration Value: 30 Brand Name: lidocain e Send Method: E-Prescr ibed Sub s Allowed: subs OK Medic ationGen ericName : lidocain e Not Available Not Available Not Available Virtussin AC 10 mg-100 mg/5 mL oral liquid 10/02 completed Medicati on ID: [id number] D uration Value: 4 Reason: () Brand Name: Virtussi n AC Send Method: E-Prescr ibed Sub s Allowed: subs OK Medic ationGen ericName : Virtussi n AC Not Available Not Available Not Available Trulicity 0.75 mg/0.5 mL subcutane ous pen injector 03/20 completed Medicati on ID: [id number] D uration Value: 28 Brand Name: Trulicit y Send Method: E-Prescr ibed Sub s Allowed: subs OK Speci al Instruct ion: INJECT 1 PEN SUBCUTAN EOUSLY Q WEEK Med icationG enericNa me: Trulicit y Not Available Not Available Not Available naloxone 4 mg/actuat ion nasal spray 03/20 completed Not Available Not Available Not Available baclofen 5 mg tablet TAKE 1 TABLET BY MOUTH THREE TIMES DAILY FOR 14 DAYS 03/20 completed Not Available Not Available Not Available Wixela Inhub 250 mcg-50 mcg/dose powder for inhalatio n 03/20 completed Medicati on ID: [id number] D uration Value: 30 Brand Name: Chelaxluciana Verma Se nd Method: E-Prescr ibed Sub s Allowed: subs OK Medic ationGen ericName : Wixela Inhub Not Available Not Available Not Available OneTouch Ultra2 Meter TEST BLOOD GLUCOSE DAILY active Not Available Not Available No t Available OneTouch Delica Plus Lancet 30 gauge TEST BLOOD GLUCOSE EVERY DAY active Not Available Not Available No t Available Vitals Date Recorded Body mass index (BMI) Body weight Provider Name and Address Organization Details Last Updated DateTime 03/20/2025 23.8 kg/m2 25414.01 g Sharron Quinn MA - [facility] 03/20/2025 08:59:12 Date Recorded Body height Provider Name an d Address Organization Details Last Updated DateTime 03/20/2025 157.48 cm BRADLEY COMI MA - [facility] 03/20/2025 08:48:48 Social History None recorded. Functional Status None recorded. Mental Status None recorded. Family History Nothing Reported. Medical History No medical history recorded. Gynecological HistoryNo gynecological history recorded. Obstetrics History GPAL:G 0 P 0 0 0 0 Past Encounters Encounter ID Performer Location Encounter Start Date Encounter Closed Date Diagnosis/Indication Diagnosis SNOMED-CT Code Diagnosis ICD10 Code Diagnosis Note [id number] ORION RAPP A Allergy [address] [place] [address] 100 [facility] [place] [address] 02/14/2024 08:49:35 02/14/2024 16:09:57 Perennial allergic rhinitis [id number] J30.89 [id number] MAE GORMAN COUNT INCLUDES THE [facility] Allergy [address] [place] [address], [place] [address] 03/13/2024 12:49:03 03/13/2024 14:31:39 Perennial allergic rhinitis [id number] J30.89 [id number] CONSTANTINO ANDUJAR MD [facility] of [address] [place] [address] 03/16/2024 08:20:43 03/16/2024 09:15:02 Allergic rhinitis [id number] J30.89 [id number] LETICIA MCCOLLUM RN Allergy [address] [place] [address] [facility] [place] [address] 04/12/2024 08:55:50 04/12/2024 10:09:53 Perennial allergic rhinitis [id number] J30.89 [id number] MAE GORMAN COUNT INCLUDES THE [facility] Allergy [address] [place] [address] [place] [address] 05/22/2024 09:50:18 05/22/2024 12:58:24 Perennial allergic rhinitis [id number] J30.89 [id number] ORION RAPP A Allergy [address] [place] [address] ite 100 [place] [address] 06/15/2024 12:58:10 06/15/2024 13:14:20 Perennial allergic rhinitis [id number] J30.89 [id number] LETICIA MCCOLLUM RN Allergy [address] [place] [address] 100 [place] [address] 07/17/2024 09:29:48 07/17/2024 10:13:49 Perennial allergic rhinitis [id number] J30.89 [id number] LETICIA MCCOLLUM RN Allergy [address] [place] [address] [place] [address] 08/14/2024 08:59:31 08/14/2024 10:10:41 Perennial allergic rhinitis [id number] J30.89 [id number] MAE GORMAN COUNT INCLUDES THE [facility] Allergy [address] [place] [address], [place] [address] 08/21/2024 08:43:01 08/21/2024 08:44:50 Perennial allergic rhinitis [id number] J30.89 [id number] MAE GORMAN COUNT INCLUDES THE [facility] Allergy [address] [place] [address], [place] [address] 09/13/2024 12:45:41 09/13/2024 14:16:13 Perennial allergic rhinitis [id number] J30.89 [id number] CONSTANTINO ANDUJAR MD [facility] [address] [place] [address] 09/17/2024 09:21:09 09/17/2024 09:47:27 Allergic rhinitis 11616455 J30.89 Impacted c erumen of bilateral ears [id number] 926682 H61.23 Ears were meticulous ly cleaned bilaterall y today with fine pics, curettes and/or suction. Patient is encouraged to avoid Q-tips in their ears relative to packing the wax in tighter. They may use the corner of their bath towel to gently clean the nooks and crannies of the external ears as needed. Yearly visits or as needed are [place] [id number] MAE GORMAN COUNT INCLUDES THE [facility] Allergy [address] [place] [address], [place] [address] 10/16/2024 09:05:24 10/16/2024 09:19:51 Perennial allergic rhinitis [id number] J30.89 [id number] ORION RAPP, COUNT INCLUDES THE [facility] Allergy [address] [place] [address] 11/13/2024 09:31:00 11/13/2024 09:59:35 Perennial allergic rhinitis [id number] J30.89 [id number] LETICIA MCCOLLUM RN Allergy [address] [place] [address] 100 [facility] [place] [address] 12/11/2024 09:31:27 12/11/2024 09:56:58 Perennial allergic rhinitis [id number] J30.89 [id number] LETICIA MCCOLLUM RN Allergy [address] [place] [address], [place] [address] 01/10/2025 08:42:57 01/10/2025 08:59:40 Perennial allergic rhinitis [id number] J30.89 [id number] ORION RAPP, COUNT INCLUDES THE [facility] Allergy [address] [place] [address], [place] [address] 02/08/2025 13:03:58 02/08/2025 15:09:19 Perennial allergic rhinitis [id number] J30.89 [id number] MAE GORMAN, COUNT INCLUDES THE [facility] Allergy [address] [place] [address] 03/12/2025 13:20:16 03/12/2025 13:24:30 Perennial allergic rhinitis [id number] J30.89 [id number] CONSTANTINO ANDUJAR MD [facility] [address] [address] 03/20/2025 08:47:37 03/20/2025 09:14:09 Allergic rhinitis 84906985 J30.89 Health Concerns Section Related Observation LastModified by Organization Detai ls LastModified Time None Recorded Concern Status LastModified by Organization Details LastModified Time None Recorded Advance Directives Directive None Recorded Payers Insurance Date Sequence Insurance Name Policy Number Policy Sellers Covered Member ID Sellers Member ID Guarantor Name 03/19/2025 1 [facility] - DOS ON OR AFTER 2022 - MEDICARE [place]VANTAGE [place] RE[place]AC[place]/AD VANTAGE - PPO) Jana Woods [id number] Jana Woods 03/12/2025 1 [facility] - DOS ON OR AFTER 2022 - [employer] (MEDICARE REPLACEMENT/AD VANTAGE - HMO) Jana Woods [id number] Jana Woods 03/12/2025 1 [facility] - [facility] - [place] (MEDICARE REPLAC[place]/AD VANTAGE - HMO) Jana Woods [id number] Jana Woods OBGyn Episode No OBEpisode recorded.
== END 2025-04-09 10:16 | disposition home or self-care (01) ==
LOC: HO.HKA 09:56
PROVIDERS: PCP Family Medicine; Visit Provider Internal Medicine Hypertension Specialist
DX: N20.0 Calculus of kidney (principal); I10 Essential (primary) hypertension
CPT/HCPCS: 99214

== ENCOUNTER → 2025-04-09 09:55 | Outpatient (BNVA) | payer OTHER, SELFPAY | PROVIDERS: PCP Family Medicine; Visit Provider Internal Medicine Hypertension Specialist | DX: I10 Essential (primary) hypertension (principal); N20.0 Calculus of kidney | CPT/HCPCS: 99212 ==

== ENCOUNTER 2025-04-18 07:48 | Outpatient (REF) | payer OTHER, SELFPAY ==
--- NOTE | ~2025-04-18 | MM_ITS ---
EXAMINATION: DXA BONE DENSITY AXIAL HISTORY: M81.0 - Age-related osteoporosis without current pathological fracture TECHNIQUE: [employer] Dual energy absorptiometry (DEXA) of the lumbar spine, total left hip, and femoral neck was performed. COMPARISON: There are no prior studies for comparison. FINDINGS: The bone mineral density of the lumbar spine is 0.683 g/cm2, corresponding to a T-score of -4.1, and a Z-score of -2.4. This is indicative of osteoporosis. The bone mineral density of the left total hip is 0.727 g/cm2, corresponding to a T-score of -2.2, and a Z-score of -0.9. This is indicative of osteopenia. The bone mineral density of the left femoral neck is 0.647 g/cm2, corresponding to a T-score of -2.8, and a Z-score of -1.2. This is indicative of osteoporosis. MM/XR DEXA axial skeleton IMPRESSION: Based on bone mineral density, and according to World Health Organization (WHO) criteria, the diagnosis is consistent with osteoporosis. Statistically, 68% of repeat scans fall within 1 SD (+/- 0.010 g/cm2 for AP spine L1-L4) and 1 SD (+/- 0.012 g/cm2 for femur total) FRAX is a trademark of the [employer]'s [place] [facility] Metabolic Bone Disease, a World Health Organization (WHO) Collaborating Center. Electronically signed by: Khurram Rivera MD 04/18/2025 08:59 AM EDT
== END 2025-04-18 07:49 | disposition home or self-care (01) ==
LOC: HO.MAMMO 07:48
PROVIDERS: PCP Family Medicine; Visit Provider Student in an Organized Health Care Education/Training Program
DX: M81.0 Age-related osteoporosis without current pathological fracture (principal)
CPT/HCPCS: 77080

== ENCOUNTER → 2025-04-18 08:15 | Outpatient (BNV) | payer OTHER, SELFPAY | PROVIDERS: PCP Family Medicine; Visit Provider Radiology Diagnostic Radiology | DX: E28.39 Other primary ovarian failure (principal) | CPT/HCPCS: 77080 ==

== ENCOUNTER 2025-04-23 13:18 | Outpatient (AMB) | payer OTHER, SELFPAY ==
--- NOTE | 2025-04-23 13:20 | A.OFFVIS_ITS ---
Vital Signs 04/23/25 13:21 Height 5 ft 2 in Weight 135 lb 9.349 oz BMI 24.8 BP 104/56 L Blood Pressure Location Lt brachial Position Sitting Pulse 68 Pulse Source Pulse Oximeter Pulse Oximetry (%) 96 Oxygen Delivery Method Room Air Intake Visit Reasons: Asthma Accompanied by: Self / Same As Patient Allergies aspirin Allergy (Unknown, Verified 04/23/25 13:25) Rash ibuprofen Allergy (Unknown, Verified 04/23/25 13:25) Rash loratadine Allergy (Unknown, Verified 04/23/25 13:25) Rash pneumococcal vaccine Allergy (Unknown, Verified 04/23/25 13:25) Rash Penicillins Allergy (Verified 04/23/25 13:25) Rash Seafood Allergy (Unknown, Uncoded 11/01/24 13:07) Rash flu vaccine Allergy (Uncoded 11/01/24 13:07) Rash shingles vaccine Allergy (Uncoded 11/01/24 13:07) rash HPI Comments Details: The patient is here for pulmonary evaluation. The patient is a 64 year woman with known history of asthma in addition to allergies. She had been seen by an childcare provider for many years and was provided allergy medicine. She was initially on Zyrtec and also taking Singulair for her allergic asthma. In addition to that she was evaluated by ENT. She underwent allergy testing demonstrating positive allergies and was placed on allergy shots for the last few years. They have been affecting beneficial. She still has episodes of shortness of breath and chest tightness. Will make sure she has a albuterol available as needed. But right now she does not need any maintenance inhalers. Will plan to have her undergo pulmonary function studies and a chest x-ray and will decide if it any maintenance inhalers are warranted. [facility] Medical History (Updated 04/23/25 @ 22:38 by Darryn Owens MD) Asthma Allergies History of kidney stones HTN (hypertension) Nephrolithiasis Surgical History H/O eye surgery History of carpal tunnel surgery S/P removal of left ovary Hx of tubal ligation History of section Family History Sister Diabetes Cancer Father Cancer Social History Household Members: None Housing: House Alcohol intake: never Patient Tobacco Use Status: Former Tobacco user Current occupational status: disabled Sexual orientation: Straight/Heterosexual Gender identity: Female Review of Systems Const Denies fever(s) Eyes Reports no additional complaints ENT Reports nasal congestion and Denies throat swelling Card Denies chest pain Resp Reports cough GI Reports no additional complaints Musc Reports no additional complaints Skin/Breast Denies rash Neuro Reports no additional complaints Arnel/Lymph Reports no additional complaints Aller/Immun Denies throat swelling Physical Exam Vital Signs: Last Vital Signs Pulse 68 04/23/25 13:21 BP 104/56 L 04/23/25 13:21 Pulse Ox 96 04/23/25 13:21 Oxygen Delivery Method Room Air 04/23/25 13:21 BMI result Body Mass Index 24.8 Const General: comfortable HEENT Head: Yes normocephalic Neck Neck: No supple Chest Chest palpation & inspection: normal inspection of the chest Resp Effort & Inspection: normal respiratory effort Auscultation: clear to auscultation bilaterally Cardio Rhythm: regular rhythm and abnormal rhythm Heart sounds: S1 normal heart sound present and S2 normal heart sound present GI Palpation (GI): Soft to palpation Skin General skin exam: no rashes or lesions noted Extrem General: Yes no clubbing, cyanosis or edema Assessment & Plan Assessment & Plan (1) Allergies: Code(s): T78.40XA - Allergy, unspecified, initial encounter Category: Medical Qualifiers: Encounter type: initial encounter Qualified Code(s): T78.40XA - Allergy, unspecified, initial encounter (2) Asthma: Code(s): J45.909 - Unspecified asthma, uncomplicated Category: Medical Qualifiers: Asthma severity: moderate Asthma persistence: persistent Asthma complication type: uncomplicated Qualified Code(s): J45.40 - Moderate persistent asthma, uncomplicated Plan Start Airsupra BID as needed continue zyrtec continue Singulair PFTs CXR F/U 3-4 months Orders: Orders PFT pulmonary function test Today J45.40 - Moderate persistent asthma, uncomplicated XR chest 2V Today J45.40 - Moderate persistent asthma, uncomplicated Medications: New albuterol-budesonide 90-80 mcg/actuation (Airsupra) 2 inhalations inhalation BID PRN 10.7 grams 11RF shortness of breath Coding Level of Care Code New Pt Level 4 (82028) Diagnoses Allergy, initial encounter T78.40XA Encounter type: initial encounter Moderate persistent asthma without complication J45.40 Asthma severity: moderate Asthma persistence: persistent Asthma complication type: uncomplicated Time Spent (min) 36
[2025-04-23 13:21] VITALS: BP 104/56; PULSE 68; O2SAT 96; BMI 24.8
== END 2025-04-23 13:41 | disposition home or self-care (01) ==
LOC: HO.HPS 13:19
PROVIDERS: PCP Family Medicine; Referring Provider Family Medicine; Visit Provider Hospitalist
DX: T78.40XA Allergy, unspecified, initial encounter (principal); J45.40 Moderate persistent asthma, uncomplicated
CPT/HCPCS: 99204

== ENCOUNTER → 2025-04-23 13:18 | Outpatient (BNVA) | payer OTHER, SELFPAY | PROVIDERS: PCP Family Medicine; Referring Provider Family Medicine; Visit Provider Hospitalist | DX: J45.40 Moderate persistent asthma, uncomplicated (principal); T78.40XA Allergy, unspecified, initial encounter | CPT/HCPCS: 99202 ==

== ENCOUNTER 2025-05-03 08:27 | Outpatient (AMB) | payer OTHER, SELFPAY ==
--- NOTE | 2025-05-03 08:37 | A.OFFVIS_ITS ---
Vital Signs 05/03/25 08:52 Height 5 ft 2 in Weight 138 lb 3.677 oz BMI 25.3 BP 115/62 Blood Pressure Location Lt brachial Position Sitting Pulse 53 Pulse Source Pulse Oximeter Pulse Oximetry (%) 98 Oxygen Delivery Method Room Air Intake Visit Reasons: Osteoporosis Intake Note: Patient presents for Osteoporosis follow up. It Investment/Portfolio Manager Required: Yes It Investment/Portfolio Manager Language: Crib Pad Maker Services: It Investment/Portfolio Manager Offered & Declined It Investment/Portfolio Manager Name: Cailin Bejarano Information Interpreted: non-clinical & clinical Branch Maker: Branch Maker Present (Cailin Bejarano) Accompanied by: It Investment/Portfolio Manager Allergies aspirin Allergy (Unknown, Verified 05/03/25 08:51) Rash ibuprofen Allergy (Unknown, Verified 05/03/25 08:51) Rash loratadine Allergy (Unknown, Verified 05/03/25 08:51) Rash pneumococcal vaccine Allergy (Unknown, Verified 05/03/25 08:51) Rash Penicillins Allergy (Verified 05/03/25 08:51) Rash Seafood Allergy (Unknown, Uncoded 11/01/24 13:07) Rash flu vaccine Allergy (Uncoded 11/01/24 13:07) Rash shingles vaccine Allergy (Uncoded 11/01/24 13:07) rash Medication List - Last Reconciled 05/03/25 by Rena Medel MD acetaminophen ER 650 mg PO Q12H PRN albuterol-budesonide 90-80 mcg/actuation (Airsupra) 2 inhalations inhalation BID PRN aripiprazole 2 mg PO BEDTIME cetirizine (All Day Allergy (cetirizine)) 10 mg PO DAILY PRN cholecalciferol (vitamin D3) 25 mcg PO DAILY citalopram (Celexa) 20 mg PO DAILY clopidogrel (Plavix) 75 mg PO DAILY diclofenac sodium 1% topical diphenhydramine HCl (Allergy (diphenhydramine)) 25 mg PO BEDTIME PRN docusate sodium (DOK) 100 mg PO BID epinephrine IM ketotifen fumarate 0.025%(0.035%) drps ophthalmic (eye) losartan 50 mg PO DAILY melatonin 3 mg PO BEDTIME PRN montelukast (Singulair) 10 mg PO DAILY oxycodone 5 mg PO BID PRN pantoprazole DR 40 mg PO DAILY sennosides (senna) 8.6 mg PO DAILY simethicone (Gas Relief Extra Strength) 125 mg PO QID triamcinolone acetonide intranasal valacyclovir 500 mg PO DAILY HPI Comments Details: Patient is a 64 y.o. female with HTN c/b CAD, HLD, polyarticular OA and osteoporosis here today for follow up Interval History: Patient last seen 02/06/25 - Establishing care for management of osteoporosis Today - Following up for osteoporosis - DEXA scan 04/2025 shows severe osteroporosis T score -4.0, AP spine - NM parathyroid scan without evidence of parathyroid adenoma Rheumatologic History: Osteoporosis - DEXA 04/2025: T score -4.0 osteoporosis Initial History: Patient states that she was diagnosed with osteoporosis ?a while ago? and was sent to endocrinology where they wanted to start her on an injection however she wanted to get a 2nd opinion. No history of falls or fractures. Risk Factor Assessment: ? Menarche: Started at age 13, menopause at age 48 ? Family history including hip fracture: No ? Estrogen deficiency: No ? Sedentary lifestyle: Yes ? Cigarette smoking: Does not smoke ? Excessive alcohol: Not drink alcohol ? Excessive caffeine: No excessive caffeine No high-risk medication taken such as: ? Glucocorticoids ? Excess thyroid hormone ? Anticonvulsants ? Heparin ? [place] ? SSRIs ? Aromatase Also has polyarticular osteoarthritis for which she is complains of polyarticular joint pain. Specifically today she is complaining of right 2nd PIP pain Current Rheumatology Medication(s): [facility] Medical History (Updated 04/23/25 @ 22:38 by Darryn Owens MD) Asthma Allergies History of kidney stones HTN (hypertension) Nephrolithiasis Surgical History H/O eye surgery History of carpal tunnel surgery S/P removal of left ovary Hx of tubal ligation History of section Family History Sister Diabetes Cancer Father Cancer Social History Household Members: None Housing: House Alcohol intake: never Patient Tobacco Use Status: Former Tobacco user Current occupational status: disabled Sexual orientation: Straight/Heterosexual Gender identity: Female Review of Systems Const Details: Review of Systems Constitutional: Denies fever, chills, weight loss ENT: Denies vision changes, eye pain or eye redness, dental caries, dry mouth GI: Denies nausea, vomiting, diarrhea, abdominal pain, change in BM Pulm: Denies SOB, AMBROCIO, hemoptysis, wheezing Cards: Denies chest pain, palpitations Skin: Denies Raynaud's, rash, nail changes, photosensitivity, WEB PROGRAMMER: Denies headaches, weakness, paresthesias, recurrent falls MSK: as per HPI All other systems reviewed and are unremarkable except noted above Physical Exam Exam Exam: Vital signs reviewed Physical Examination CONSTITUITIONAL Patient alert and cooperative. Well appearing and in no apparent painful distress MSK Hands * Right Hand: Able to make a fist. No swelling or tenderness to palpation of these joints. * Left Hand: Able to make a fist. No swelling or tenderness to palpation of these joints. * Herbedens nodes noted bilaterally Wrists * Right Wrist: Full ROM. 70 degrees of wrist flexion, 80 degrees of wrist extension. No swelling or TTP * Left Wrist: Full ROM. 70 degrees of wrist flexion, 80 degrees of wrist extension. No swelling or TTP Elbows * Right Elbow: Full ROM. No swelling or TTP. No TTP of the medial and lateral epicondyles * Left Elbow: Full ROM. No swelling or TTP. No TTP of the medial and lateral epicondyles Shoulders * Right shoulder: Full ROM. No swelling noted. No TTP of the AC joint, subacromial bursa or posterior shoulder * Left shoulder: Full ROM. No swelling noted. No TTP of the AC joint, subacromial bursa or posterior shoulder Hip bursa: No tenderness to palpation bilaterally Knees * Right knee: Full ROM. No swelling noted. No TTP of the knee joint line or pes anserine bursa * Left knee: Full ROM. No swelling noted. No TTP of the knee joint line or pes anserine bursa. * Crepitations felt bilaterally Ankles * Right ankle: Good ankle dorsiflexion and plantar flexion. No swelling. No TTP of the ankle joint * Left ankle: Good ankle dorsiflexion and plantar flexion. No swelling. No TTP of the ankle joint Feet * Right foot: Negative squeeze test * Left foot: Negative squeeze test Tender points? * No tenderness to palpation of the bilateral trapezius, supraspinatus, anterior costochondral junctions, bilateral suboccipital muscle insertions SKIN No rashes Vital Signs: Last Vital Signs Pulse 53 05/03/25 08:52 BP 115/62 08/22/25 08:52 Pulse Ox 98 05/03/25 08:52 Oxygen Delivery Method Room Air 05/03/25 08:52 BMI result Body Mass Index 25.3 Results Reviewed Results Reviewed: Laboratory Tests 02/06/25 04/02/25 11:49 16:02 WBC 5.2 RBC 4.24 Hgb 12.8 Hct 38.6 Plt Count 125 L ESR 16 Sodium 142 Potassium 4.2 Chloride 107 Carbon Dioxide 28 BUN 16 Creatinine 0.81 AST 33 H ALT 33 H C-Reactive Protein < 0.10 25-OH Vitamin D Total 44 PTH Intact 79.2 H 89.2 H DEXA 04/2025 FINDINGS: The bone mineral density of the lumbar spine is 0.683 g/cm2, corresponding to a T-score of -4.1, and a Z-score of -2.4. This is indicative of osteoporosis. The bone mineral density of the left total hip is 0.727 g/cm2, corresponding to a T-score of -2.2, and a Z-score of -0.9. This is indicative of osteopenia. The bone mineral density of the left femoral neck is 0.647 g/cm2, corresponding to a T-score of -2.8, and a Z-score of -1.2. This is indicative of osteoporosis. NM Parathyroid Scan 02/2025 FINDINGS: Early images of the neck demonstrate a homogeneous distribution of activity in both thyroid lobes. No foci of abnormal activity are identified. Delayed images demonstrate washout from the thyroid. No residual activity is seen to suggest a parathyroid adenoma. This is confirmed on SPECT imaging. IMPRESSION: No scintigraphic evidence of a parathyroid adenoma. Assessment & Plan Assessment & Plan (1) Osteoporosis: Code(s): M81.0 - Age-related osteoporosis without current pathological fracture Qualifiers: Osteoporosis type: age-related Presence of current pathological fracture: without current pathological fracture Qualified Code(s): M81.0 - Age- related osteoporosis without current pathological fracture Plan: #Osteoporosis Patient is a 64 year old female with osteoporosis here today for follow up. DEXA scan 04/2025 shows severe osteoporosis with highest T score at the spine -4.1 Had a very long discussion with the patient about treatment therapies. She was concerned because she previously went to Endocrinology and was told she needed injections I told her that I agree because the level of osteoporosis in her spine meets criteria for anabolic agents such as Evenity and/or Forteo Patient said that her endocrinology at [facility] may have started that process already. I told her she needs to follow up with them Plan - RTC 3 months (2) Generalized osteoarthritis: Code(s): M15.9 - Polyosteoarthritis, unspecified Plan: #Generalized OA Patient with polyarticular osteoarthritis. Discussed with patient the chronicity and natural history of osteoarthritis. She is currently using topical diclofenac. We can consider joint injections in the future Plan - Topical diclofenac 1% 4 times a day - Tylenol arthritis 650mg bid (3) Hyperparathyroidism: Code(s): E21.3 - Hyperparathyroidism, unspecified Plan: #Elevated PTH Patient with elevated PTH without known diagnosis or workup for hyperparathyroidism. NM parathyroid scan without evidence of parathyroid adenomas Plan - Continue Endo follow up Plan I spent 38 minutes reviewing the record and labs, taking a history, examining the patient, discussing the treatment plan, counseling patient and documenting in the medical record Orders: Orders PT Evaluation and Treatment Today R29.6 - Repeated falls Coding Level of Care Code Est Pt Level 4 (09996) Complex EM visit Add On G2211 Diagnoses Age-related osteoporosis without current pathological fracture M81.0 Osteoporosis type: age-related Presence of current pathological fracture: without current pathological fracture Generalized osteoarthritis M15.9 Hyperparathyroidism E21.3
[2025-05-03 08:52] VITALS: BP 115/62; PULSE 53; O2SAT 98; BMI 25.3
== END 2025-05-03 09:35 | disposition home or self-care (01) ==
LOC: HO.RHES 08:28
PROVIDERS: Visit Provider Student in an Organized Health Care Education/Training Program
DX: M81.0 Age-related osteoporosis without current pathological fracture (principal); M15.9 Polyosteoarthritis, unspecified; E21.3 Hyperparathyroidism, unspecified
CPT/HCPCS: 99214; G2211

== ENCOUNTER → 2025-05-03 08:27 | Outpatient (BNVA) | payer OTHER, SELFPAY | PROVIDERS: Visit Provider Student in an Organized Health Care Education/Training Program | DX: M81.0 Age-related osteoporosis without current pathological fracture (principal); E21.3 Hyperparathyroidism, unspecified; E55.9 Vitamin D deficiency, unspecified | CPT/HCPCS: 99212 ==

== ENCOUNTER 2025-06-18 09:24 | Outpatient (REF) | payer OTHER, SELFPAY ==
--- NOTE | ~2025-06-18 | XR_ITS ---
EXAMINATION: XR CHEST CLINICAL INFORMATION: J45.40 - Moderate persistent asthma, uncomplicated COMPARISON: None available. TECHNIQUE: 2 views of the chest were obtained. FINDINGS: The cardiac, hilar, and mediastinal contours are normal. The lungs are mildly hyperaerated and hyperlucent. There is a calcified granuloma in the left upper lobe. Lungs appear clear. There is no pneumothorax or pleural effusion. There is no focal osseous or soft tissue abnormality. XR/XR chest 2V IMPRESSION: No active pulmonary disease. Electronically signed by: Patrice Elena MD 06/18/2025 09:53 AM EDT
== END 2025-06-18 09:25 | disposition home or self-care (01) ==
LOC: HO.XRAY 09:24
PROVIDERS: PCP Family Medicine; Visit Provider Hospitalist
DX: J45.40 Moderate persistent asthma, uncomplicated (principal)
CPT/HCPCS: 71046

== ENCOUNTER → 2025-06-18 09:28 | Outpatient (BNV) | payer OTHER, SELFPAY | PROVIDERS: PCP Family Medicine; Visit Provider Radiology Diagnostic Radiology | DX: J45.40 Moderate persistent asthma, uncomplicated (principal) | CPT/HCPCS: 71046 ==

== ENCOUNTER 2025-07-26 10:48 | Outpatient (REF) | payer OTHER, SELFPAY ==
--- NOTE | 2025-07-26 10:54 | PFT_ITS ---
Indication: Asthma Spirometry FEV1 to FVC 83%; FEV1 2.18L; FVC 2.63 L. No significant response to bronchodilators noted. Lung Volumes Total lung capacity 94% predicted Diffusion Capacity DLCO 88% predicted Comparisons None Interpretation No obstructive nor restrictive ventilatory defects identified. No significant response to bronchodilators noted. Lung volumes are normal. The patient has a normal diffusing capacity. Clinical correlation warranted. MTDD
[2025-07-26 11:39] VITALS: PULSE 72
== END 2025-07-26 10:49 | disposition home or self-care (01) ==
LOC: HO.RESP 10:48
PROVIDERS: PCP Family Medicine; Visit Provider Hospitalist
DX: J45.40 Moderate persistent asthma, uncomplicated (principal); Z87.891 Personal history of nicotine dependence
CPT/HCPCS: 94060; 94640; 94727; 94729

== ENCOUNTER → 2025-07-26 10:54 | Outpatient (BNV) | payer OTHER, SELFPAY | PROVIDERS: PCP Family Medicine; Visit Provider Hospitalist | DX: J45.40 Moderate persistent asthma, uncomplicated (principal) | CPT/HCPCS: 94060; 94727; 94729 ==

== ENCOUNTER 2025-07-31 08:38 | Outpatient (AMB) | payer OTHER, SELFPAY ==
[2025-07-31 08:43] VITALS: BP 124/64; PULSE 84; O2SAT 97; BMI 26.0
--- NOTE | 2025-07-31 08:43 | MHC.OFFVIS ---
Vital Signs 07/31/25 08:43 Height 5 ft 2 in Weight 142 lb 3.17 oz BMI 26.0 BP 124/64 Blood Pressure Location Lt brachial Position Sitting Pulse 84 Pulse Source Pulse Oximeter Pulse Oximetry (%) 97 Oxygen Delivery Method Room Air Intake Visit Reasons: asthma Real Estate Representative Required: Yes Real Estate Representative Services: Real Estate Representative Offered & Declined Real Estate Representative Name: MD speaks croatian Accompanied by: Self / Same As Patient Allergies aspirin Allergy (Unknown, Verified 07/31/25 08:46) Rash ibuprofen Allergy (Unknown, Verified 07/31/25 08:46) Rash loratadine Allergy (Unknown, Verified 07/31/25 08:46) Rash pneumococcal vaccine Allergy (Unknown, Verified 07/31/25 08:46) Rash Penicillins Allergy (Verified 07/31/25 08:46) Rash Seafood Allergy (Unknown, Uncoded 11/01/24 13:07) Rash flu vaccine Allergy (Uncoded 11/01/24 13:07) Rash shingles vaccine Allergy (Uncoded 11/01/24 13:07) rash HPI Comments Details: The patient is a 65 year woman with known history of asthma in addition to allergies. She had been seen by an vp analytics for many years and was provided allergy medicine. She was initially on Zyrtec and also taking Singulair for her allergic asthma. In addition to that she was evaluated by ENT. She underwent allergy testing demonstrating positive allergies and was placed on allergy shots for the last few years. They have been affecting beneficial. She still has episodes of shortness of breath and chest tightness. Will make sure she has a albuterol available as needed. But right now she does not need any maintenance inhalers. Will plan to have her undergo pulmonary function studies and a chest x-ray and will decide if it any maintenance inhalers are warranted. 07/31/2025 the patient is here for pulmonary follow-up visit. Overall the patient has been doing okay. She does have some episodes of chest tightness. She did get the air supra and has been helpful. She has used it a few times. In addition to that she does use her allergy medicine. We did review her chest x-ray. No acute disease. She does have some mild lordosis. In addition to that we did review her pulmonary function studies demonstrating no evidence of any restrictive or obstructive pulmonary disease. Otherwise the patient is doing well she continues with the current therapy as prescribed. She has been fully vaccinated. Will plan to follow-up in 8-12 months. [facility] Medical History (Updated 04/23/25 @ 22:38 by Darryn Owens MD) Asthma Allergies History of kidney stones HTN (hypertension) Nephrolithiasis Surgical History H/O eye surgery History of carpal tunnel surgery S/P removal of left ovary Hx of tubal ligation History of section Family History Sister Diabetes Cancer Father Cancer Social History Household Members: None Housing: House Alcohol intake: never Patient Tobacco Use Status: Former Tobacco user Current occupational status: disabled Sexual orientation: Straight/Heterosexual Gender identity: Female Review of Systems Const Denies fever(s) Eyes Reports no additional complaints ENT Reports nasal congestion and Denies throat swelling Card Denies chest pain Resp Reports cough GI Reports no additional complaints Musc Reports no additional complaints Skin/Breast Denies rash Neuro Reports no additional complaints Arnel/Lymph Reports no additional complaints Aller/Immun Denies throat swelling Physical Exam Vital Signs: Last Vital Signs Pulse 84 07/31/25 08:43 BP 124/64 07/31/25 08:43 Pulse Ox 97 07/31/25 08:43 Oxygen Delivery Method Room Air 07/31/25 08:43 BMI result Body Mass Index 26.0 Const General: comfortable HEENT Head: Yes normocephalic Neck Neck: No supple Chest Chest palpation & inspection: normal inspection of the chest Resp Effort & Inspection: normal respiratory effort Auscultation: clear to auscultation bilaterally Cardio Rhythm: regular rhythm and abnormal rhythm Heart sounds: S1 normal heart sound present and S2 normal heart sound present GI Palpation (GI): Soft to palpation Skin General skin exam: no rashes or lesions noted Extrem General: Yes no clubbing, cyanosis or edema Assessment & Plan Assessment & Plan (1) Allergies: Code(s): T78.40XA - Allergy, unspecified, initial encounter Category: Medical Qualifiers: Encounter type: initial encounter Qualified Code(s): T78.40XA - Allergy, unspecified, initial encounter (2) Asthma: Code(s): J45.909 - Unspecified asthma, uncomplicated Category: Medical Qualifiers: Asthma complication type: uncomplicated Asthma persistence: persistent Asthma severity: moderate Qualified Code(s): J45.40 - Moderate persistent asthma, uncomplicated Plan continue Airsupra BID as needed continue zyrtec continue Singulair PFTs normal CXR normal F/U 8-12 months Coding Level of Care Code Est Pt Level 4 (07753) Diagnoses Allergy, initial encounter T78.40XA Encounter type: initial encounter Moderate persistent asthma without complication J45.40 Asthma complication type: uncomplicated Asthma persistence: persistent Asthma severity: moderate Time Spent (min) 16
--- OUTSIDE RECORDS SUMMARY | 2025-07-31 16:22 | XMS_ITS | Continuity of Care Document ---
Author Organization [place] - [facility], Allergy Address [address] [address] Care Team Providers Care Teletypesetter Operator Name Role Phone VIJAY BALBUENA Primary Care Provider Assessment Encounter Date Assessment Date Assessment LastModified by Organization Details LastModified Time 06/14/2025 06/14/2025 Visit With: Mae Mack Use of Antihistamine s: Yes If yes: Vial Test Change in medications: No If yes Increase in asthma symptoms If yes, inhaler use: Reaction to last injections: No If yes: Allergy Symptoms: Other: Missed: Dose Aware of Vial Test Aware: Notes: [email or web address] Not available 06/14/2025 14:23:27 Plan of Treatment Reminders Order Date Submit Date Provider Last Modified By Organization Details Last Modified Time Details Appointments [facility]- Allergy f-up 6mon 2025 09:00A M CONSTANTINO ANDUJAR MD Not available Not available Not available Lab None recorded . Referral None recorded . Procedures None recorded . Surgeries None recorded . Imaging None recorded . Medication Orders None recorded . Patient TargetsNo targets recorded. Patient InstructionsNo instructions recorded. Reason for Referral None Reported. 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 joint disorder; Note: Date Diagnosed : 10/09/2014 2:21 PM (524.60) Not Available [facility] 4 02:31:22 Tinnitus 27285137 Active 2014 Tinnitus, unspecifi ed; Note: Date Diagnosed : 10/09/2014 2:50 PM (388.30) Not Available [facility] 4 02:31:08 Impacted cerumen of bilateral ears 12759019985 41261 Active 2014 Impacted cerumen, bilateral ; Note: Date Diagnosed : 04/09/2015 11:03 AM (H61.23) [mapped from ICD9 code: 380.4] Not Available [facility] 4 02:31:19 Dysphonia 26635159 Active 2018 Hoarsenes s; Note: Date Diagnosed : 04/03/2019 9:27 AM (R49.0) Not Available [facility] 4 02:31:16 Gastroeso phageal reflux disease without esophagit is 334797699 Active 2019 Gastro-es ophageal reflux disease without esophagit is; Note: Date Diagnosed : 10/02/2019 10:28 AM (K21.9) Not Available [facility] 4 02:31:12 Acute laryngiti s 3467723 Active 2019 Acute laryngiti s; Note: Date Diagnosed : 10/02/2019 10:28 AM (J04.0) Not Available [facility] 4 02:31:13 Mild intermitt ent asthma 533903142 Active 2019 Mild intermitt ent asthma NOS; Note: Date Diagnosed : 0 2:31 PM (J45.20) Not Available [facility] 4 02:31:25 Acute sinusitis 23733943 Active 2020 Other acute sinusitis ; Note: Date Diagnosed : 01/23/2021 1:08 PM (J01.80) Not Available [facility] 4 02:31:11 Finding of resonance of voice 433674747 Active 2022 Unspecifi ed voice and resonance disorder; Note: Date Diagnosed : 02/03/2023 6:17 AM (R49.9) Not Available [facility] 4 02:31:18 Stomatiti s 24618596 Active 2022 Oral thrush; Note: Date Diagnosed : 02/03/2023 6:17 AM (B37.0) Not Available [facility] 4 02:31:09 Candidias is of mouth 26039926 Active 2022 Oral thrush; Note: Date Diagnosed : 02/03/2023 6:17 AM (B37.0) Not Available [facility] 4 02:31:09 Allergic rhinitis 76658661 Active 2023 SCIT Apr 2020 monthly shots since 11/2022 CONSTANTINO ANDUJAR MD [address], [place], [address] , [place] - [facility] 08:51:04 Perennial allergic rhinitis 755716410 Active 2023 ORION RAPP, RMA [address] [facility], [place], [address] , [place] [facility] 14:22:55 Problem Notes None recorded. Procedures Surgical History Date Name Laterality Status Provider Name and Address Organization Details Recorded Time 07/16/20 25 Allergy Immunotherapy Injections completed CHAZ VALDIVIA [address], [place], [address], [facility] - [facility] 07/16/2025 08:59:14 06/14/20 25 Allergy Immunotherapy Injections completed ORION RAPP RMA [address], [place], [address], [place] [facility] 06/14/2025 14:23:12 05/21/20 25 Allergy Immunotherapy Injections completed CHAZ VALDIVIA [address], [place], [address], [place] [facility] 05/21/2025 12:17:54 04/17/20 25 Allergy Immunotherapy Injections completed Bren Stewart [address], [place], [address], [place] [facility] 04/17/2025 10:02:58 03/12/20 25 Allergy Immunotherapy Injections completed CHAZ VALDIVIA [address], [place], [address], [place] [facility] 03/12/2025 13:23:41 02/09/20 25 Allergy Immunotherapy Injections completed ORION RAPP RMA [address] [facility] [place] [address], [address], [place] [facility] 02/08/2025 15:08:18 01/11/20 25 Allergy Immunotherapy Injections completed LETICIA MCCOLLUM RN [address] [facility] [address], [place], [address], [place] [facility] 01/10/2025 08:59:19 12/12/19 25 Allergy Immunotherapy Injections completed LETICIA MCCOLLUM RN [address] [facility] [address], [address], [place] [facility] 12/11/2024 09:56:21 11/14/19 25 Allergy Immunotherapy Injections completed ORION RAPP RMA [address] [facility] [address],[address] [place] [address], [address], [place] [facility] 11/13/2024 09:59:03 10/16/19 25 Allergy Immunotherapy Injections completed CHAZ VALDIVIA [address] [facility] [address] [place] [address], [address], [place] [facility] 10/16/2024 09:14:46 09/17/19 25 Wax_DP completed CONSTANTINO ANDUJAR MD [address] [facility] [address], [address], [place] [facility] 09/17/2024 09:42:19 09/13/19 25 Allergy Immunotherapy Injections completed CHAZ VALDIVIA [address] [place] [address], [address], [place] [facility] 09/13/2024 14:15:30 08/21/20 24 Allergy Immunotherapy Injections completed ORION RAPP RMA [address], [place], [address], [place] [facility] 08/21/2024 11:47:43 08/14/20 24 Allergy Immunotherapy Injections completed LETICIA MCCOLLUM RN [address] [facility] [address], [place], [address], [facility] - [facility] 08/14/2024 10:09:09 07/17/20 24 Allergy Immunotherapy Injections completed CHAZ VALDIVIA [address] [place] [address], [address], [facility] - [facility] 07/17/2024 10:08:40 06/15/20 24 Allergy Immunotherapy Injections completed ORION RAPP RMA [address] [place] [address], [address], [facility] - [facility] 06/15/2024 13:13:55 05/22/20 24 Allergy Immunotherapy Injections completed ORION RAPP RMJose Guadalupe [address] [facility],[address] [place] [address], [address], [facility] - [facility] 05/22/2024 12:56:50 04/12/20 24 Allergy Immunotherapy Injections completed LETICIA MCCOLLUM RN 100 [facility],[address], [address], [facility] - [facility] 04/12/2024 09:47:30 03/13/20 24 Allergy Immunotherapy Injections completed CHAZ VALDIVIA [address] [facility], [address], [facility] - [facility] 03/13/2024 13:26:42 02/14/20 24 Allergy Immunotherapy Injections completed CHAZ VALDIVIA [address] [facility], [address], [facility] - [facility] 02/14/2024 12:52:32 Imaging Results None recorded. Procedure Notes None recorded. Medical Equipment None Reported. Allergies Allergen ID Allergen Name Allergen Category Reaction Reaction Severity Criticality Documentation Date Start Date Code Code System Note Provider Name and Address Organization Details Recorded Time 57017 loratadin e medicatio n other Not available Not available 01/24/2024 99355 RxNorm React ion: unkno wn, unspe cifie d;; Not Available [facility] 00:57:28 75699 ibuprofen medicatio n other Not available Not available 01/24/2024 5640 RxNorm React ion: unkno wn, unspe cifie d;; Not Available [facility] 4 00:57:30 47398 penicilli n V potassium medicatio n other Not available Not available 01/24/202405002 5 RxNorm React ion: unkno wn, unspe cifie d;; Not Available [facility] 4 00:57:34 03430 tramadol hydrochlo ride medicatio n other Not available Not available 01/24/2024 49025 RxNorm React ion: unkno wn, unspe cifie d;; Not Available [facility] 4 00:57:38 Medications Name Sig Start Date [...] by mouth 03/20 completed Medicati on ID: [id number] D uration Value: 14 Brand Name: nystatin Send Method: E-Prescr ibed Sub s Allowed: subs OK Speci al Instruct ion: 5 ml swish and spit four times daily x 2 weeks Me dication GenericN armida: nystatin Not Available Not Available Not Available doxycycli ne hyclate 100 mg capsule 03/20 completed Medicati on ID: [id number] D uration Value: 14 Prescri bed By [...] mg tablet 07/22 completed Medicati on ID: [id number] Br and Name: Celexa S end Method: E-Prescr ibed Sub s Allowed: subs OK Medic ationGen ericName : Celexa Not Available Not Available Not Available cetirizin e 10 mg tablet TAKE 1 TABLET BY MOUTH DAILY NEEDED FOR ALLERGY SYMPTOMS active Not Available Not Available No t Available cetirizin e 5 mg tablet 07/22 completed Medicati on ID: [id number] Br and Name: cetirizi ne Send Method: [...] 28 gauge 03/20 completed Medicati on ID: [id number] D uration Value: 90 Brand Name: FreeStyl [...] inhalatio n 04/14 completed Medicati on ID: [id number] Re ason: () Brand Name: Advair Diskus [...] mg tablet 04/14 completed Medicati on ID: [id number] D uration Value: 7 Reason: () Brand [...] by mouth 03/20 completed Medicati on ID: [id number] D uration Value: 14 Prescri bed By [...] Available prednisol one acetate 1 % eye drops,amlia pension INSTILL 1 DROP INTO LASERED EYE THREE TIMES DAILY FOR 5 DAYS 03/20 completed Not Available Not Available Not Available DOK 100 mg capsule 04/14 completed Medicati on ID: [id number] D uration Value: 90 Reason: () Brand Name: DOK Send Method: E-Prescr ibed Sub s Allowed: subs OK Speci al Instruct ion: TK 1 C PO BID Medi cationGe nericNam e: DOK Not Available Not Available Not Available Triple Antibioti c 3.5 mg-400 unit-5,00 0 unit/gram topical ointment 03/20 completed Not Available Not Available Not Available [employer] Test strips USE DAILY FOR BLOOD SUGAR [...] eye drops 03/20 completed Medicati on ID: [id number] D uration Value: 45 Brand Name: olopatad ine Send Method: E-Prescr ibed Sub s Allowed: subs OK Speci al Instruct ion: INT 1 GTT IN OU QD FOR ALLERGY Medicati onGeneri cName: olopatad ine Not Available Not Available Not Available triamcino [...] by mouth 12/23 completed Medicati on ID: [id number] D uration Value: 30 Prescri bed By [...] No t Available Nasonex 50 mcg/actua tion Elysian 2 spray into both nostrils 03/20 completed Medicati on ID: [id number] Du ration Value: 30 Brand Name: Nasonex [...] mg tablet 12/23 completed Medicati on ID: [id number] Re ason: () Brand Name: lisinopr il Send Method: E-Prescr ibed Sub s Allowed: subs OK Medic ationGen ericName : lisinopr il Not Available Not Available Not Available Ambien 5 mg tablet 12/23 completed Medicati on ID: [id number] Re ason: () Brand Name: Ambien S end Method: E-Prescr ibed Sub s Allowed: subs OK Medic ationGen ericName : Ambien Not Available Not Available Not Available ipratropi um bromide 21 mcg (0.03 %) nasal spray 2018 active Medicati on ID: [id number] D uration Value: 84 Brand Name: ipratrop ium bromide Send Method: E-Prescr ibed Sub s Allowed: subs OK Medic ationGen ericName : ipratrop ium bromide Not Available Not Available Not Available glipizide 5 mg tablet 12/23 completed Medicati on ID: [id number] Re ason: () Brand Name: glipizid e Send Method: E-Prescr ibed Sub s Allowed: subs OK Medic ationGen ericName : glipizid e Not Available Not Available Not Available Artificia l Tears (polyviny l alcohol) 1.4 % eye drops 03/20 completed Medicati on ID: [id number] D uration Value: 15 Brand Name: Artifici [...] mg tablet 03/20 completed Medicati on ID: [id number] D uration Value: 30 Brand Name: gayatriast gayle Sen d Method: E-Prescr ibed Sub s [...] layed release 12/23 completed Medicati on ID: [id number] P rescribe d By Name: ROD Morales nd Name: doxycycl ine hyclate Send Method: E-Prescr ibed Sub s Allowed: subs OK Speckatia al Instruct ion: 1 po bid X 14 days Med icationG enericNa me: doxycycl ine hyclate Not Available Not Available Not Available DermOtic Oil 0.01 % ear drops Instill 5 drop twice a day as directed 03/20 completed Medicati on ID: [id number] P rescribe d By Name: ROD Lala [...] mg tablet 12/16 completed Medicati on ID: [id number] D uration Value: 30 Brand Name: levodayday arguetazine S end Method: E-Prescr ibed Sub s Allowed: subs OK Medic ationGen ericName : levoceti rizine Not Available Not Available Not Available omeprazol e 20 mg tablet,de layed release 10/02 completed Medicati on ID: [id number] Re ason: () Brand Name: omeprazo le [...] topical ointment 2018 active Medicati on ID: [id number] D uration Value: 30 Brand Name: lidocain e Send Method: E-Prescr ibed Sub s Allowed: subs OK Medic ationGen ericName : lidocain e Not Available Not Available Not Available Virtussin AC 10 mg-100 mg/5 mL oral liquid 10/02 completed Medicati on ID: [id number] D uration Value: 4 Reason: () Brand Name: Virtussi n AC Send Method: E-Prescr ibed Sub s Allowed: subs OK Medic ationGen ericName : Virtussi n AC Not Available Not Available Not Available Trulicity 0.75 mg/0.5 mL subcutane ous pen injector 03/20 completed Medicati on ID: [id number] D uration Value: 28 Brand Name: Trulicit [...] completed Not Available Not Available Not Available Berna Verma 250 mcg-50 mcg/dose powder for inhalatio n 03/20 completed Medicati on ID: [id number] D uration Value: 30 Brand Name: Berna Verma Se nd Method: E-Prescr ibed Sub s Allowed: subs OK Medic ationGen ericName : Berna Verma Not Available Not Available Not Available OneTouch Ultra2 Meter TEST BLOOD GLUCOSE DAILY active Not Available Not Available No t Available OneTouch Delica Plus Lancet 30 gauge TEST BLOOD GLUCOSE EVERY DAY active Not Available Not Available No t Available Vitals None Recorded Social History None recorded. Functional Status None recorded. Mental Status None recorded. Family History Nothing Reported. Medical History No medical history recorded. Gynecological HistoryNo gynecological history recorded. Obstetrics History GPAL:G 0 P 0 0 0 0 Past Encounters Encounter ID Performer Location Encounter Start Date Encounter Closed Date Diagnosis/Indication Diagnosis SNOMED-CT Code Diagnosis ICD10 Code Diagnosis IMO Codes Diagnosis Note [id number] MAE MACK, A Allergy [address] [facility] [place] [address] 05/21/2025 11:17:28 05/21/2025 12:18:20 Perennial allergic rhinitis 396142660 J30.89 [id number] ORION JOSUEAbad, RMA Allergy [address] [facility] [place] [address] 06/14/2025 13:57:31 06/14/2025 14:23:40 Perennial allergic rhinitis 887788409 J30.89 Health Concerns Section Related Observation LastModified by Organization Detai ls LastModified Time None Recorded Concern Status LastModified by Organization Details LastModified Time None Recorded Payers Encounter Date Sequence Insurance Name Policy Number Policy Sellers Covered Member ID Sellers Member ID Guarantor Name 06/14/2025 1 [facility] - DOS ON OR AFTER 2022 - MEDICARE [place]VANTAGE [place]MEDICARE REPLACEMENT/AD VANTAGE - PPO) Jana Woods [id number] Jana Woods 06/14/2025 2 [place] [facility] Jana Woods [id number] Jana Woods OBGyjose armando Episode No OBEpisode recorded.
--- OUTSIDE RECORDS SUMMARY | 2025-07-31 16:22 | XMS_ITS | Data Portability ---
Author Organization [place] - [facility], Allergy Address [address] [address] Care Team Providers Care Junior Designer Name Role Phone VIJAY BALBUENA Primary Care Provider Assessment Encounter Date Assessment Date Assessment LastModified by Organization Details LastModified Time 03/20/2025 03/20/2025 Patient is doing well on [...] epipen was also sent to her pharmacy ash Not available 03/20/2025 09:13:49 04/17/2025 04/17/2025 Visit With: CHAZ Cevallos Use of Antihistamines: Yes If yes: Vial Test Change in medications: No If yes Increase in asthma symptoms No If yes, inhaler use: Reaction to last injections: No If yes: Allergy Symptoms: None Other: Missed: Dose Aware of Vial Test Yes Aware: Notes: [email or web address] Not available 04/17/2025 10:03:40 05/21/2025 05/21/2025 Visit With: Mae Gorman Use of Antihistamines: No If yes: Vial Test Yes Change in medications: No If yes Increase in asthma symptoms If yes, inhaler use: Reaction to last injections: No If yes: Allergy Symptoms: Other: Missed: Dose Aware of Vial Test Aware: Notes: [email or web address] Not available 05/21/2025 12:18:03 06/14/2025 06/14/2025 Visit With: Mae Gorman Use of Antihistamines: Yes If yes: Vial Test Change in medications: No If yes Increase in asthma symptoms If yes, inhaler use: Reaction to last injections: No If yes: Allergy Symptoms: Other: Missed: Dose Aware of Vial Test Aware: Notes: [email or web address] Not available 06/14/2025 14:23:27 07/16/2025 07/16/2025 Visit With: Mae Gorman Use of Antihistamines: Yes If yes: Daily Vial Test Change in medications: No If yes Increase in asthma symptoms If yes, inhaler use: Reaction to last injections: No If yes: Allergy Symptoms: Other: Missed: Dose Aware of Vial Test Aware: Notes: [email or web address] Not available 07/16/2025 08:59:20 Plan of Treatment Reminders Order Date Submit [...] 2-Jb 0.3 mg/0.3 mL injectio n, auto-inj paula 2024 025 [id number] [address], [place], [id number], 03/20/2025 09:13:24 Patient TargetsNo targets recorded. Patient InstructionsNo instructions recorded. Reason for Referral None Reported. Problems Name Problem SNOMED Code Status Onset Date Resolution Date Notes Provider Name and Address Organization Details Recorded Time Impacted cerumen 68069038 Active 2013 Impacted cerumen; Note: Date Diagnosed : 4 12:17 PM (380.4) Not Available [facility] 4 02:31:07 Temporoma ndibular joint disorder 56857034 Active 2014 Temporoma ndibular joint disorder; Note: Date Diagnosed : 10/09/2014 2:21 PM (524.60) Not Available [facility] 4 02:31:22 Tinnitus 03702680 Active 2014 Tinnitus, unspecifi ed; Note: Date Diagnosed : 10/09/2014 2:50 PM (388.30) Not Available [facility] 4 02:31:08 Impacted cerumen of bilateral ears [id number] 67320 Active 2014 Impacted cerumen, bilateral ; Note: Date Diagnosed : 04/09/2015 11:03 AM (H61.23) [mapped from ICD9 code: 380.4] Not Available [facility] 4 02:31:19 Dysphonia 04490328 Active 2018 Hoarsenes s; Note: Date Diagnosed : 04/03/2019 9:27 AM (R49.0) Not Available [facility] 4 02:31:16 Gastroeso phageal reflux disease without esophagit is 290325395 Active 2019 Gastro-es ophageal reflux disease without esophagit is; Note: Date Diagnosed : 10/02/2019 10:28 AM (K21.9) Not Available [facility] 4 02:31:12 Acute laryngiti s 2080192 Active 2019 Acute laryngiti s; Note: Date Diagnosed : 10/02/2019 10:28 AM (J04.0) Not Available [facility] 4 02:31:13 Mild intermitt ent asthma 075485800 Active 2019 Mild intermitt ent asthma NOS; Note: Date Diagnosed : 0 2:31 PM (J45.20) Not Available [facility] 4 02:31:25 Acute sinusitis 03309532 Active 2020 Other acute sinusitis ; Note: Date Diagnosed : 01/23/2021 1:08 PM (J01.80) Not Available [facility] 4 02:31:11 Finding of resonance of voice 887213668 Active 2022 Unspecifi ed voice and resonance disorder; Note: Date Diagnosed : 02/03/2023 6:17 AM (R49.9) Not Available [facility] 4 02:31:18 Stomatiti s 60531091 Active 2022 Oral thrush; Note: Date Diagnosed : 02/03/2023 6:17 AM (B37.0) Not Available [facility] 4 02:31:09 Candidias is of mouth 68030923 Active 2022 Oral thrush; Note: Date Diagnosed : 02/03/2023 6:17 AM (B37.0) Not Available [facility] 4 02:31:09 Allergic rhinitis 57505633 Active 2023 SCIT Apr 2020 monthly shots since 11/2022 CONSTANTINO ANDUJAR MD [address], [place], [address] , [facility] - [facility] 4 08:51:04 Perennial allergic rhinitis 136802253 Active 2023 ORION RAPP [facility], [facility], [place], [address] , [facility] - [facility] 14:22:55 Problem Notes None recorded. Procedures Surgical History Date Name Laterality Status Provider Name and Address Organization Details Recorded Time 07/16/20 25 Allergy Immunotherapy Injections completed CHAZ VALDIVIA [address] [facility], [place], [address], [facility] - [facility] 07/16/2025 08:59:14 06/14/20 25 Allergy Immunotherapy Injections completed CHAZ CEVALLOS [address] [facility], [place], [address], [facility] - [facility] 06/14/2025 14:23:12 05/21/20 25 Allergy Immunotherapy Injections completed CHAZ VALDIVIA [address] [facility], [place], [address], [facility] - [facility] 05/21/2025 12:17:54 04/17/20 25 Allergy Immunotherapy Injections completed Bren Stewart [address], [place], [address], [facility] - [facility] 04/17/2025 10:02:58 03/12/20 25 Allergy Immunotherapy Injections completed CHAZ VALDIVIA [address], [place], [address], [place] [facility] 03/12/2025 13:23:41 02/09/20 25 Allergy Immunotherapy Injections completed ORION RAPP, RMA [address] [place] [address], [address], [place] [facility] 02/08/2025 15:08:18 01/11/20 25 Allergy Immunotherapy Injections completed LETICIA MCCOLLUM RN [address], [place], [address], [place] [facility] 01/10/2025 08:59:19 12/12/19 25 Allergy Immunotherapy Injections completed LETICIA MCCOLLUM RN [address] [facility] [address] [address] [facility], [place], [address], [place] [facility] 12/11/2024 09:56:21 11/14/19 25 Allergy Immunotherapy Injections completed ORION RAPP, RMA [address] [facility] [address] [facility], [place], [address], [place] [facility] 11/13/2024 09:59:03 10/16/19 25 Allergy Immunotherapy Injections completed CHAZ VALDIVIA [address] [place] [address], [address], [place] [facility] 10/16/2024 09:14:46 09/17/19 25 Wax_DP completed CONSTANTINO ANDUJAR MD [address] [facility] [address] [address] [place] [address], [address], [place] [facility] 09/17/2024 09:42:19 09/13/19 25 Allergy Immunotherapy Injections completed CHAZ VALDIVIA [address] [facility] [address] [address] [place] [address], [address], [place] [facility] 09/13/2024 14:15:30 08/21/20 24 Allergy Immunotherapy Injections completed ORION RAPP RMA [address] [facility] [address] [address] [place] [address], [address], [place] [facility] 08/21/2024 11:47:43 08/14/20 24 Allergy Immunotherapy Injections completed LETICIA MCCOLLUM RN [address] [facility] [address] [address] [place] [address], [address], [place] [facility] 08/14/2024 10:09:09 07/17/20 24 Allergy Immunotherapy Injections completed MAE GORMAN, GUILLAUMEA [address], [place], [address], [facility] - [facility] 07/17/2024 10:08:40 06/15/20 24 Allergy Immunotherapy Injections completed ORION RAPP, RMA [address], [place], [address], [facility] - [facility] 06/15/2024 13:13:55 05/22/20 24 Allergy Immunotherapy Injections completed ORION RAPP, RMA [address], [place], [address], [facility] - [facility] 05/22/2024 12:56:50 04/12/20 24 Allergy Immunotherapy Injections completed LETICIA MCCOLLUM RN [address], [place], [address], [facility] - [facility] 04/12/2024 09:47:30 03/13/20 24 Allergy Immunotherapy Injections completed MAE GORMAN RMA [address], [place], [address], [facility] - [facility] 03/13/2024 13:26:42 02/14/20 24 Allergy Immunotherapy Injections completed MAE GORMAN RMA [address], [place], [address], [facility] - [facility] 02/14/2024 12:52:32 Imaging Results None recorded. Procedure Notes None recorded. Medical Equipment None Reported. Allergies Allergen ID Allergen Name Allergen Category Reaction Reaction Severity Criticality Documentation Date Start Date Code Code System Note Provider Name and Address Organization Details Recorded Time 90523 loratadin e medicatio n other Not available Not available 01/24/2024 40454 RxNorm React ion: unkno wn, unspe cifie d;; Not Available [facility] 4 00:57:28 83458 ibuprofen medicatio n other Not available Not available 01/24/2024 5640 RxNorm React ion: unkno wn, unspe cifie d;; Not Available [facility] 05/14/202 4 00:57:30 68343 penicilli n V potassium medicatio n other Not available Not available 01/24/2024 88515 5 RxNorm React ion: unkno wn, unspe cifie d;; Not Available [facility] 4 00:57:34 91151 tramadol hydrochlo ride medicatio n other Not available Not available 01/24/2024 45874 RxNorm React ion: unkno wn, unspe cifie d;; Not Available [facility] 4 00:57:38 Medications Name Sig Start Date [...] by mouth 03/20 completed Medicati on ID: [id number] D uration Value: 14 Brand Name: nystatin Send Method: E-Prescr ibed Sub s Allowed: subs OK Speci al Instruct ion: 5 ml swish and spit four times daily x 2 weeks Me dication GenericN armida: nystatin Not Available Not Available Not Available doxycycli ne hyclate 100 mg capsule 03/20 completed Medicati on ID: [id number] D uration Value: 14 Prescri bed By [...] mg tablet 07/22 completed Medicati on ID: [id number] Br and Name: Celexa S end Method: E-Prescr ibed Sub s Allowed: subs OK Medic ationGen ericName : Celexa Not Available Not Available Not Available cetirizin e 10 mg tablet TAKE 1 TABLET BY MOUTH DAILY NEEDED FOR ALLERGY SYMPTOMS active Not Available Not Available No t Available cetirizin e 5 mg tablet 07/22 completed Medicati on ID: [id number] Br and Name: cetirizi ne Send Method: [...] 28 gauge 03/20 completed Medicati on ID: [id number] D uration Value: 90 Brand Name: FreeStyl [...] inhalatio n 04/14 completed Medicati on ID: [id number] Re ason: () Brand Name: Advair Diskus [...] mg tablet 04/14 completed Medicati on ID: [id number] D uration Value: 7 Reason: () Brand Name: sulfamet hoxazole -trimeth oprim Se nd Method: E-Prescr ibed Sub s Allowed: subs OK Speci al Instruct ion: TK 1 T PO BID FOR 7 DAYS. SEEMA HOANG OF FLUIDS M edicatio nGeneric Name: sulfamet hoxazole -trimeth oprim Not Available Not Available Not Available doxycycli ne monohydra te 100 mg tablet 1 tablet by mouth 03/20 completed Medicati on ID: [id number] D uration Value: 14 Prescri bed By [...] mg capsule 04/14 completed Medicati on ID: [id number] D uration Value: 90 Reason: () Brand Name: DOK Send Method: E-Prescr ibed Sub s Allowed: subs OK Speci al Instruct ion: TK 1 C PO BID Medi cationGe nericNam e: DOK Not Available Not Available Not Available Triple Antibioti c 3.5 mg-400 unit-5,00 0 unit/gram topical ointment 03/20 completed Not Available Not Available Not Available RocketHubToOrthogem Ultra Test strips USE DAILY FOR BLOOD [...] eye drops 03/20 completed Medicati on ID: [id number] D uration Value: 45 Brand Name: olopatad [...] by mouth 12/23 completed Medicati on ID: [id number] D uration Value: 30 Prescri bed By [...] No t Available Nasonex 50 mcg/actua tion Blount 2 spray into both nostrils 03/20 completed Medicati on ID: [id number] Du ration Value: 30 Brand Name: Nasonex [...] mg tablet 12/23 [place]ati [place] ID: [id number] Re ason: () Brand Name: lisinopr il Send Method: E-Prescr ibed Sub s Allowed: subs OK Medic ationGen ericName : lisinopr il Not Available Not Available Not Available Ambien 5 mg tablet 12/23 completed Medicati on ID: [id number] Re ason: () Brand Name: Ambien S end Method: E-Prescr ibed Sub s Allowed: subs OK Medic ationGen ericName : Ambien Not Available Not Available Not Available ipratropi um bromide 21 mcg (0.03 %) nasal spray 2018 active Medicati on ID: [id number] D uration Value: 84 Brand Name: ipratrop ium bromide Send Method: E-Prescr ibed Sub s Allowed: subs OK Medic ationGen ericName : ipratrop ium bromide Not Available Not Available Not Available glipizide 5 mg tablet 12/23 completed Medicati on ID: [id number] Re ason: () Brand Name: glipizid e Send Method: E-Prescr ibed Sub s Allowed: subs OK Medic ationGen ericName : glipizid e Not Available Not Available Not Available Artificia l Tears (polyviny l alcohol) 1.4 % eye drops 03/20 completed Medicati on ID: [id number] D uration Value: 15 Brand Name: Artifici [...] mg tablet 03/20 completed Medicati on ID: [id number] D uration Value: 30 Brand Name: rosuvast atin Sen d Method: E-Prescr ibed Sub s Allowed: subs OK Speci al Instruct ion: TK 1 T PO D HS Medic Zoltan ericName : rosuvast atin Not Available Not [...] layed release 12/23 completed Medicati on ID: [id number] P rescribe d By Name: ROD Morales nd Name: doxycycl ine hyclate Send Method: E-Prescr ibed Sub s Allowed: subs TERENCE cervantes Instruct ion: 1 po bid X 14 days Med icationG enericNa me: doxycycl ine hyclate Not Available Not Available Not Available DermOtic Oil 0.01 % ear drops Instill 5 drop twice a day as directed 03/20 completed Medicati on ID: [id number] P rescribe d By Name: ROD Lala nd Name: DermOtic Oil Send Method: E-Prescr ibed Sub s Allowed: subs OK Medic atlaryGen ericName : DermOtic Oil Not Available Not [...] mg tablet 12/16 completed Medicati on ID: [id number] D uration Value: 30 Brand Name: levoceti rizine S end Method: E-Prescr ibed Sub s Allowed: subs OK Medic ationGen ericName : levoceti rizine Not Available Not Available Not Available omeprazol e 20 mg tablet,de layed release 10/02 completed Medicati on ID: [id number] Re ason: () Brand Name: omeprazo le [...] topical ointment 2018 active Medicati on ID: [id number] D uration Value: 30 Brand Name: lidocain e Send Method: E-Prescr ibed Sub s Allowed: subs OK Medic ationGen ericName : lidocain e Not Available Not Available Not Available Virtussin AC 10 mg-100 mg/5 mL oral liquid 10/02 completed Medicati on ID: [id number] D uration Value: 4 Reason: () Brand Name: Virtussi n AC Send Method: E-Prescr ibed Sub s Allowed: subs OK Medic ationGen ericName : Virtussi n AC Not Available Not Available Not Available Trulicity 0.75 mg/0.5 mL subcutane ous pen injector 03/20 completed Medicati on ID: [id number] D uration Value: 28 Brand Name: Trulicit [...] MOUTH THREE TIMES DAILY FOR 14 DAYS 07/09 /2025 completed Not Available Not Available Not Available Wixela Inhub 250 mcg-50 mcg/dose powder for inhalatio n 03/20 completed Medicati on ID: [id number] D uration Value: 30 Brand Name: Berna [...] Details Last Updated DateTime 03/20/2025 23.8 kg/m2 80313.01 g Sharron Quinn [place] [facility] 03/20/2025 08:59:12 Date Recorded Body height Provider Name an d Address Organization Details Last Updated DateTime 03/20/2025 157.48 cm BRADLEY APPIAH [place] [facility] 03/20/2025 08:48:48 Social History None recorded. Functional Status None recorded. Mental Status None recorded. Family History Nothing Reported. Medical History No medical history recorded. Gynecological HistoryNo gynecological history recorded. Obstetrics History GPAL:G 0 P 0 0 0 0 Past Encounters Encounter ID Performer Location Encounter Start Date Encounter Closed Date Diagnosis/Indication Diagnosis SNOMED-CT Code Diagnosis ICD10 Code Diagnosis IMO Codes Diagnosis Note [id number] [facility] Allergy [address] [place] [address] 02/14/2024 08:49:35 02/14/2024 16:09:57 Perennial allergic rhinitis 795356171 J30.89 [id number] MAE GORMAN [facility], [facility] [place] [address] 03/13/2024 12:49:03 03/13/2024 14:31:39 Perennial allergic rhinitis 175956971 J30.89 [id number] CONSTANTINO ANDUJAR MD [facility] [address] [address] 03/16/2024 08:20:43 03/16/2024 09:15:02 Allergic rhinitis 85239868 J30.89 [id number] LETICIA MCCOLLUM RN Allergy [address] [place] [address],[place] [address] [place] [address] 04/12/2024 08:55:50 04/12/2024 10:09:53 Perennial allergic rhinitis 086875774 J30.89 [id number] MAE GORMAN [facility], [facility] [place] [address], [address] [place] [address] 05/22/2024 09:50:18 05/22/2024 12:58:24 Perennial allergic rhinitis 248592785 J30.89 [id number] [facility], [facility], [facility] [place] [address], [address] [place] [address] 06/15/2024 12:58:10 06/15/2024 13:14:20 Perennial allergic rhinitis 511228137 J30.89 [id number] LETICIA MCCOLLUM RN Allergy [address] [place] [address] [address] [place] [address] 07/17/2024 09:29:48 07/17/2024 10:13:49 Perennial allergic rhinitis 247019965 J30.89 [id number] LETICIA MCCOLLUM RN Allergy [address] [place], [place] [address] [address] [place] [address] 08/14/2024 08:59:31 08/14/2024 10:10:41 Perennial allergic rhinitis 649418400 J30.89 [id number] MAE GORMAN [facility], [facility] [place] [address],[place] [address] [place] [address] 08/21/2024 08:43:01 08/21/2024 08:44:50 Perennial allergic rhinitis 814549953 J30.89 [id number] MAE GORMAN [facility], [facility] [place] [address],[place] [address] [place] [address] 09/13/2024 12:45:41 09/13/2024 14:16:13 Perennial allergic rhinitis 827483134 J30.89 [id number] CONSTANTINO ANDUJAR MD [facility] [place] [address] [facility] [place] [address] 09/17/2024 09:21:09 09/17/2024 09:47:27 Allergic rhinitis 15784481 J30.89 Impacted c erumen of bilateral ears 1584285457 393626 H61.23 Ears were meticulous ly cleaned bilaterall y today with fine pics, curettes and/or suction. Patient is encouraged to avoid Q-tips in their ears relative to packing the wax in tighter. They may use the corner of their bath towel to gently clean the nooks and crannies of the external ears as needed. Yearly visits or as needed are [place]ward [place] [id number] MAE GORAMN, [facility], [facility] [place] [address],[place] [address] [facility] [address] 10/16/2024 09:05:24 10/16/2024 09:19:51 Perennial allergic rhinitis 732954232 J30.89 [id number] [facility], [facility], [facility] [place] [address],[place] [facility] [address] 11/13/2024 09:31:00 11/13/2024 09:59:35 Perennial allergic rhinitis 993043301 J30.89 [id number] LETICIA MCCOLLUM RN Allergy [address] [place] [address],[place] [facility] [address] 12/11/2024 09:31:27 12/11/2024 09:56:58 Perennial allergic rhinitis 166744577 J30.89 [id number] LETICIA MCCOLLUM RN Allergy [address] [place] [address], [address] [place] [address] 01/10/2025 08:42:57 01/10/2025 08:59:40 Perennial allergic rhinitis [id number] J30.89 [id number] [facility] Allergy [address] [place] [address],[place] [address] [place] [address] 02/08/2025 13:03:58 02/08/2025 15:09:19 Perennial allergic rhinitis 539783916 J30.89 [id number] MAE GORMAN [facility], 1930[facility] [place] [address],[place] [address] [place] [address] 03/12/2025 13:20:16 03/12/2025 13:24:30 Perennial allergic rhinitis 596070224 J30.89 [id number] CONSTANTINO ANDUJAR MD [facility] [place] [address] [facility] [place] [address] 03/20/2025 08:47:37 03/20/2025 09:14:09 Allergic rhinitis 35880296 J30.89 [id number] ORION JOSUE, RMA Allergy [address] [facility] [address],[place] [address] [place] [address] 04/17/2025 09:55:17 04/17/2025 10:03:58 Perennial allergic rhinitis [id number] J30.89 [id number] MAE GORMAN, A Allergy [address] [facility] [address],[place] [address] [place] [address] 05/21/2025 11:17:28 05/21/2025 12:18:20 Perennial allergic rhinitis 697514939 J30.89 [id number] [facility] Allergy [address],[place] [address] [place] [address] 06/14/2025 13:57:31 06/14/2025 14:23:40 Perennial allergic rhinitis [id number] J30.89 [id number] MAE GORMAN, RMA Allergy [address] [facility] [address],[place] [address] [place] [address] 07/16/2025 08:39:38 07/16/2025 08:59:33 Perennial allergic rhinitis 862876111 J30.89 Health Concerns Section Related Observation LastModified by Organization Detai ls LastModified Time None Recorded Concern Status LastModified by Organization Details LastModified Time None Recorded Advance Directives Directive None Recorded Payers Insurance Date Sequence Insurance Name Policy Number Policy Sellers Covered Member ID Sellers Member ID Guarantor Name 07/16/2025 1 [facility] - DOS ON OR AFTER 2022 - MEDICARE [place]VANTAGE [place]MED[place]ARE REPLACEMENT/AD VANTAGE - PPO) Jana Woods [id number] Jana Woods 03/12/2025 1 [facility] - DOS ON OR AFTER 2022 - RETIREMENT OPTIONS (MEDICARE REPLACEMENT/AD VANTAGE - HMO) Jana Woods [id number] Jana Woods 03/12/2025 1 [facility] [place] ([place] REPL[place]/AD VANTAGE - HMO) Jana Woods [id number] Jana Woods 07/16/2025 2 [place] [facility] Jana Woods [id number] Jana Woods Notes Date Note Type Note Provider Name and Address Organization Details Recorded Time 03/20/2025 text/html ROS as noted in the HPI allergy followupipad - sp[facility] Apr 2020monthly shots since 11/2022epipen - 04/2025triamcinolon e spray has been helpful CONSTANTINO ANDUJAR MD [address] [place] [address], [address], [place] [facility] 03/20/2025 09:14:09 OBGyn Episode No OBEpisode recorded.
--- OUTSIDE RECORDS SUMMARY | 2025-07-31 16:22 | XMS_ITS | Continuity of Care Document ---
Author Organization [place] - [facility], Allergy Address [address] [address] Care Team Providers Care Observer Electrical [employer] Name Role Phone VIJAY BALBUENA Primary Care Provider [phone] Assessment Encounter Date Assessment Date Assessment LastModified by Organization Details LastModified Time 07/16/2025 07/16/2025 Visit With: Mae Mack Use of Antihistamine s: Yes If yes: Daily Vial Test Change in medications: No If yes Increase in asthma symptoms If yes, inhaler use: Reaction to last injections: No If yes: Allergy Symptoms: Other: Missed: Dose Aware of Vial Test Aware: Notes: [email or web address] Not available 07/16/2025 08:59:20 Plan of Treatment Reminders Order Date Submit Date Provider Last Modified By Organization Details Last Modified Time Details Appointments [facility]- Allergy f-up 6mon 2025 09:00A M CONSTANTINO [...] Address Organization Details Recorded Time Impacted cerumen 04030716 Active 2013 Impacted cerumen; Note: Date Diagnosed : 4 12:17 PM (380.4) Not Available [facility] 4 02:31:07 Temporoma ndibular joint disorder 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 Active 2014 Temporoma ndibular joint disorder; Note: Date Diagnosed : 10/09/2014 2:21 PM (524.60) Not Available [facility] 4 02:31:22 Tinnitus 60018399 Active 2014 Tinnitus, unspecifi ed; Note: Date Diagnosed : 10/09/2014 2:50 PM (388.30) Not Available [facility] 4 02:31:08 Impacted cerumen of bilateral ears [id number] 95583 Active 2014 Impacted cerumen, bilateral ; Note: Date Diagnosed : 04/09/2015 11:03 AM (H61.23) [mapped from ICD9 code: 380.4] Not Available [facility] 4 02:31:19 Dysphonia 43737102 Active 2018 Hoarsenes s; Note: Date Diagnosed : 04/03/2019 9:27 AM (R49.0) Not Available [facility] 4 02:31:16 Gastroeso phageal reflux disease without esophagit is 321743902 Active 2019 Gastro-es ophageal reflux disease without esophagit is; Note: Date Diagnosed : 10/02/2019 10:28 AM (K21.9) Not Available [facility] 4 02:31:12 Acute laryngiti s 0415455 Active 2019 Acute laryngiti s; Note: Date Diagnosed : 10/02/2019 10:28 AM (J04.0) Not Available [facility] 4 02:31:13 Mild intermitt ent asthma 310541122 Active 2019 Mild intermitt ent asthma NOS; Note: Date Diagnosed : 0 2:31 PM (J45.20) Not Available [facility] 4 02:31:25 Acute sinusitis 75248205 Active 2020 Other acute sinusitis ; Note: Date Diagnosed : 01/23/2021 1:08 PM (J01.80) Not Available [facility] 4 02:31:11 Finding of resonance of voice 865500769 Active 2022 Unspecifi ed voice and resonance disorder; Note: Date Diagnosed : 02/03/2023 6:17 AM (R49.9) Not Available [facility] 4 02:31:18 Stomatiti s 06945429 Active 2022 Oral thrush; Note: Date Diagnosed : 02/03/2023 6:17 AM (B37.0) Not Available [facility] 4 02:31:09 Candidias is of mouth 65459969 Active 2022 Oral thrush; Note: Date Diagnosed : 02/03/2023 6:17 AM (B37.0) Not Available [facility] 4 02:31:09 Allergic rhinitis 81400985 Active 2023 [facility] Apr 2020 monthly shots since 11/2022 CONSTANTINO ANDUJAR MD [address], [place], [address] , [place] - [facility] 08:51:04 Perennial allergic rhinitis 025067367 Active 2023 ORION RAPP, RMA [address] Formerly named [facility], [place], [address] , [place] - [facility] 14:22:55 Problem Notes None recorded. Procedures Surgical History Date Name Laterality Status Provider Name and Address Organization Details Recorded Time 07/16/20 25 Allergy Immunotherapy Injections completed CHAZ VALDIVIA [address] Formerly named [facility], [place], [address], [facility] - [facility] 07/16/2025 08:59:14 06/14/20 25 Allergy Immunotherapy Injections completed ORION RAPP RMA [address], [place], [address], [place] [facility] 06/14/2025 14:23:12 05/21/20 25 Allergy Immunotherapy Injections completed CHAZ VALDIVIA [address],[place] Formerly named [facility], [place], [address], [facility] - [facility] 05/21/2025 12:17:54 04/17/20 25 Allergy Immunotherapy Injections completed Bren Stewart [address], [place], [address], [place] [facility] 04/17/2025 10:02:58 03/12/20 25 Allergy Immunotherapy Injections completed CHAZ VALDIVIA [address], [place], [address], [place] [facility] 03/12/2025 13:23:41 02/09/20 25 Allergy Immunotherapy Injections completed ORION RAPP, RMA 100 [facility],[address] [place] [address], [address], [place] [facility] 02/08/2025 15:08:18 01/11/20 25 Allergy Immunotherapy Injections completed LETICIA MCCOLLUM RN [address] [facility] [place],[address], [address], [place] [facility] 01/10/2025 08:59:19 12/12/19 25 Allergy Immunotherapy Injections completed LETICIA MCCOLLUM RN 100 [facility],[address], [address], [place] [facility] 12/11/2024 09:56:21 11/14/19 25 Allergy Immunotherapy Injections completed ORION RAPP A 100 [facility] [place],[address], [address], [place] [facility] 11/13/2024 09:59:03 10/16/19 25 Allergy Immunotherapy Injections completed CHAZ VALDIVIA 100 [facility],[address], [address], [facility] - [facility] 10/16/2024 09:14:46 09/17/19 25 Wax_DP completed CONSTANTINO ANDUJAR MD 100 [facility],[address], [address], [place] [facility] 09/17/2024 09:42:19 09/13/19 25 Allergy Immunotherapy Injections completed CHAZ VALDIVIA 100 [facility] [place],[address] [place] [address], [address], [place] [facility] 09/13/2024 14:15:30 08/21/20 24 Allergy Immunotherapy Injections completed ORION RAPP RMA [address] [facility] [place],[address], [address], [place] [facility] 08/21/2024 11:47:43 08/14/20 24 Allergy Immunotherapy Injections completed LETICIA MCCOLLUM RN [address] [place] [address], [address], [facility] - [facility] 08/14/2024 10:09:09 07/17/20 24 Allergy Immunotherapy Injections completed CHAZ VALDIVIA [address] [facility] [address] [place] [address], [address], [facility] - [facility] 07/17/2024 10:08:40 06/15/20 24 Allergy Immunotherapy Injections completed ORION RAPP RMJose Guadalupe [address] [facility] [address], [address], [facility] - [facility] 06/15/2024 13:13:55 05/22/20 24 Allergy Immunotherapy Injections completed ORION RAPP RMJose Guadalupe [address] [facility] [address] [place] [address], [address], [facility] - [facility] 05/22/2024 12:56:50 04/12/20 24 Allergy Immunotherapy Injections completed LETICIA MCCOLLUM RN 100 [facility],[address], [address], [facility] - [facility] 04/12/2024 09:47:30 03/13/20 24 Allergy Immunotherapy Injections completed CHAZ VALDIVIA [address] [facility] [place] [address] [place] [address], [address], [facility] - [facility] 03/13/2024 13:26:42 02/14/20 24 Allergy Immunotherapy Injections completed CHAZ VALDIVIA [address] [facility] [place],[address], [address], [facility] - [facility] 02/14/2024 12:52:32 Imaging Results None recorded. Procedure Notes None recorded. Medical Equipment None Reported. Allergies Allergen ID Allergen Name Allergen Category Reaction Reaction Severity Criticality Documentation Date Start Date Code Code System Note Provider Name and Address Organization Details Recorded Time 68216 loratadin e medicatio n other Not available Not available 01/24/2024 11777 RxNorm React ion: unkno wn, unspe cifie d;; Not Available [facility] 00:57:28 95628 ibuprofen medicatio n other Not available Not available 01/24/2024 5640 RxNorm React ion: unkno wn, unspe cifie d;; Not Available [facility] 4 00:57:30 07378 penicilli n V potassium medicatio n other Not available Not available 01/24/2024 46511 5 RxNorm React ion: unkno wn, unspe cifie d;; Not Available [facility] 4 00:57:34 38260 tramadol hydrochlo ride medicatio n other Not available Not available 01/24/2024 01657 RxNorm React ion: unkno wn, unspe cifie d;; Not Available [facility] 4 00:57:38 Medications Name Sig Start [...] by mouth 03/20 completed Medicati on ID: [id number] D uration Value: 14 Brand Name: nystatin Send Method: E-Prescr ibed Sub s Allowed: subs OK Speci al Instruct ion: 5 ml swish and spit four times daily x 2 weeks Me dication GenericN armida: nystatin Not Available Not Available Not Available doxycycli ne hyclate 100 mg capsule 03/20 completed Medicati on ID: [id number] D uration Value: 14 Prescri bed By [...] Available Not Available Celexa 10 mg tablet 11/10 /2020 completed Medicati on ID: [id number] Br and Name: Celexa S end Method: E-Prescr ibed Sub s Allowed: subs OK Medic ationGen ericName : Celexa Not Available Not Available Not Available cetirizin e 10 mg tablet TAKE 1 TABLET BY MOUTH DAILY NEEDED FOR ALLERGY SYMPTOMS active Not Available Not Available No t Available cetirizin e 5 mg tablet 07/22 completed Medicati on ID: [id number] Br and Name: cetirizi ne Send Method: [...] 28 gauge 03/20 completed Medicati on ID: [id number] D uration Value: 90 Brand Name: FreeStyl e Lancets Send Method: E-Prescr ibed Sub s Allowed: subs OK Speci al Instruct ion: USE FOR BLOOD SUGAR TESTING ONCE A DAY [facility] FreeStyl e Lancets Not Available [...] inhalatio n 04/14 completed Medicati on ID: [id number] Re ason: () Brand Name: Advair Diskus [...] mg tablet 04/14 completed Medicati on ID: [id number] D uration Value: 7 Reason: () Brand Name: sulfamet hoxazole -trimeth oprim Se nd Method: E-Prescr ibed Sub s Allowed: subs OK Speci al Instruct ion: TK 1 T PO BID FOR 7 DAYS. SEEMA EDGEY OF FLUIDS M edicatio nGeneric Name: sulfamet hoxazole -trimeth oprim Not Available Not Available Not Available doxycycli ne monohydra te 100 mg tablet 1 tablet by mouth 03/20 completed Medicati on ID: [id number] D uration Value: 14 Prescri bed By [...] mg capsule 04/14 completed Medicati on ID: [id number] D uration Value: 90 Reason: () Brand Name: PAOLO Send Method: E-Prescr ibed Sub s Allowed: subs OK Speci al Instruct ion: TK 1 C PO BID Medi cationGe nericNam e: DOK Not Available Not Available Not Available Triple Antibioti c 3.5 mg-400 unit-5,00 0 unit/gram topical ointment 03/20 completed Not Available Not Available Not Available AnTuTu Ultra Test strips USE DAILY FOR BLOOD [...] eye drops 03/20 completed Medicati on ID: [id number] D uration Value: 45 Brand Name: olopatad [...] by mouth 12/23 completed Medicati on ID: [id number] D uration Value: 30 Prescri bed By [...] No t Available Nasonex 50 mcg/actua tion Plato 2 spray into both nostrils 03/20 completed Medicati on ID: [id number] Du ration Value: 30 Brand Name: Nasonex [...] mg tablet 12/23 completed Medicati on ID: [id number] Re ason: () Brand Name: lisinopr il Send Method: E-Prescr ibed Sub s Allowed: subs OK Medic ationGen ericName : lisinopr il Not Available Not Available Not Available Ambien 5 mg tablet 12/23 completed Medicati on ID: [id number] Re ason: () Brand Name: Ambien S end Method: E-Prescr ibed Sub s Allowed: subs OK Medic ationGen ericName : Ambien Not Available Not Available Not Available ipratropi um bromide 21 mcg (0.03 %) nasal spray 2018 active Medicati on ID: [id number] D uration Value: 84 Brand Name: ipratrop ium bromide Send Method: E-Prescr ibed Sub s Allowed: subs OK Medic ationGen ericName : ipratrop ium bromide Not Available Not Available Not Available glipizide 5 mg tablet 12/23 completed Medicati on ID: [id number] Re ason: () Brand Name: glipizid e Send Method: E-Prescr ibed Sub s Allowed: subs OK Medic ationGen ericName : glipizid e Not Available Not Available Not Available Artificia l Tears (polyviny l alcohol) 1.4 % eye drops 03/20 completed Medicati on ID: [id number] D uration Value: 15 Brand Name: Artifici [...] mg tablet 03/20 completed Medicati on ID: [id number] D uration Value: 30 Brand Name: pop araujo Sen d Method: E-Prescr ibed Sub s [...] layed release 12/23 completed Medicati on ID: [id number] P rescribe d By Name: ROD Morales nd Name: doxycycl ine hyclate Send Method: E-Prescr ibed Sub s Allowed: subs OK Júnior al Instruct ion: 1 po bid X 14 days Med icationG enericNa me: doxycycl ine hyclate Not Available Not Available Not Available DermOtic Oil 0.01 % ear drops Instill 5 drop twice a day as directed 03/20 completed Medicati on ID: [id number] P rescribe d By Name: ROD Lala [...] mg tablet 12/16 completed Medicati on ID: [id number] D uration Value: 30 Brand Name: levoceti rizine S end Method: E-Prescr ibed Sub s Allowed: subs OK Medic ationGen ericName : levoceti rizine Not Available Not Available Not Available omeprazol e 20 mg tablet,de layed release 10/02 completed Medicati on ID: [id number] Re ason: () Brand Name: omeprazo le [...] topical ointment 2018 active Medicati on ID: [id number] D uration Value: 30 Brand Name: lidocain e Send Method: E-Prescr ibed Sub s Allowed: subs OK Medic ationGen ericName : lidocain e Not Available Not Available Not Available Virtussin AC 10 mg-100 mg/5 mL oral liquid 10/02 completed Medicati on ID: [id number] D uration Value: 4 Reason: () Brand Name: Virtussi n AC Send Method: E-Prescr ibed Sub s Allowed: subs OK Medic ationGen ericName : Virtussi n AC Not Available Not Available Not Available Trulicity 0.75 mg/0.5 mL subcutane ous pen injector 03/20 completed Medicati on ID: [id number] D uration Value: 28 Brand Name: Trulicit y Send Method: E-Prescr ibed Sub s Allowed: subs OK Speci al Instruct ion: INJECT 1 PEN SUBCUTAN EOUSLY Q WEEK Med icationG enericNa me: Trulicit y Not Available Not Available Not Available naloxone 4 mg/actuat ion nasal spray 07/09 /2025 completed Not Available Not Available Not Available baclofen 5 mg tablet TAKE 1 TABLET BY MOUTH THREE TIMES DAILY FOR 14 DAYS 03/20 completed Not Available Not Available Not Available Berna Verma 250 mcg-50 mcg/dose powder for inhalatio n 03/20 completed Medicati on ID: [id number] D uration Value: 30 Brand Name: Berna [...] ICD10 Code Diagnosis IMO Codes Diagnosis Note 07768 CHAZ VALDIVIA Allergy 100 [facility] 100 [place] [address] 07/16/2025 08:39:38 07/16/2025 08:59:33 Perennial allergic rhinitis 457247953 J30.89 Health Concerns Section Related Observation LastModified by Organization Detai ls LastModified Time None Recorded Concern Status LastModified by Organization Details LastModified Time None Recorded Payers Encounter Date Sequence Insurance Name Policy Number Policy Sellers Covered Member ID Sellers Member ID Guarantor Name 07/16/2025 1 [facility] - DOS ON OR AFTER 2022 - MEDICARE ADVANTAGE [place] (MED[place]ARE REPLACEMENT/AD VANTAGE - PPO) Jana Woods [id number] Jana Woods 07/16/2025 2 [place] [facility] Jana Woods [id number] Jana Woods OBGyn Episode No OBEpisode recorded.
--- OUTSIDE RECORDS SUMMARY | 2025-07-31 16:22 | XMS_ITS | Continuity of Care Document ---
Author Organization [place] - [facility], Allergy Address [address] [address] Care Team Providers [place] Department Manager Name Role Phone VIJAY BALBUENA Primary Care Provider Assessment Encounter Date Assessment Date Assessment LastModified by Organization Details LastModified Time 05/21/2025 05/21/2025 Visit With: Mae Mack Use of Antihistamine s: No If yes: Vial Test Yes Change in medications: No If yes Increase in asthma symptoms If yes, inhaler use: Reaction to last injections: No If yes: Allergy Symptoms: Other: Missed: Dose Aware of Vial Test Aware: Notes: [email or web address] Not available 05/21/2025 12:18:03 Plan of Treatment Reminders Order Date Submit Date Provider Last Modified By Organization Details Last Modified Time Details Appointments 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; Note: Date Diagnosed : 10/09/2014 2:21 PM (524.60) Not Available [facility] 4 02:31:22 Tinnitus 49737392 Active 2014 Tinnitus, unspecifi ed; Note: Date Diagnosed : 10/09/2014 2:50 PM (388.30) Not Available [facility] 4 02:31:08 Impacted cerumen of bilateral ears [id number] 69272 Active 2014 Impacted cerumen, bilateral ; Note: Date Diagnosed : 04/09/2015 11:03 AM (H61.23) [mapped from ICD9 code: 380.4] Not Available [facility] 4 02:31:19 Dysphonia 26116900 Active 2018 Hoarsenes s; Note: Date Diagnosed : 04/03/2019 9:27 AM (R49.0) Not Available [facility] 4 02:31:16 Gastroeso phageal reflux disease without esophagit is 230078482 Active 2019 Gastro-es ophageal reflux disease without esophagit is; Note: Date Diagnosed : 10/02/2019 10:28 AM (K21.9) Not Available [facility] 4 02:31:12 Acute laryngiti s 9792037 Active 2019 Acute laryngiti s; Note: Date Diagnosed : 10/02/2019 10:28 AM (J04.0) Not Available [facility] 4 02:31:13 Mild intermitt ent asthma 168357970 Active 2019 Mild intermitt ent asthma NOS; Note: Date Diagnosed : 0 2:31 PM (J45.20) Not Available [facility] 4 02:31:25 Acute sinusitis 41488305 Active 2020 Other acute sinusitis ; Note: Date Diagnosed : 01/23/2021 1:08 PM (J01.80) Not Available [facility] 4 02:31:11 Finding of resonance of voice 733340059 Active 2022 Unspecifi ed voice and resonance disorder; Note: Date Diagnosed : 02/03/2023 6:17 AM (R49.9) Not Available [facility] 4 02:31:18 Stomatiti s 03961605 Active 2022 Oral thrush; Note: Date Diagnosed : 02/03/2023 6:17 AM (B37.0) Not Available [facility] 4 02:31:09 Candidias is of mouth 16314849 Active 2022 Oral thrush; Note: Date Diagnosed : 02/03/2023 6:17 AM (B37.0) Not Available [facility] 4 02:31:09 Allergic rhinitis 72730987 Active 2023 [facility] Apr 2020 monthly shots since 11/2022 CONSTANTINO ANDUJAR MD [address], [place], [address] , [place] - [facility] 08:51:04 Perennial allergic rhinitis 100124092 Active 2023 ORION RAPP, RMA [address] [facility], [place], [address] , [place] - [facility] 14:22:55 Problem Notes None recorded. Procedures Surgical History Date Name Laterality Status Provider Name and Address Organization Details Recorded Time 07/16/20 25 Allergy Immunotherapy Injections completed CHAZ VALDIVIA [address] [facility], [place], [address], [facility] - [facility] 07/16/2025 08:59:14 06/14/20 25 Allergy Immunotherapy Injections completed ORION RPAP RMA [address], [place], [address], [place] [facility] 06/14/2025 14:23:12 05/21/20 25 Allergy Immunotherapy Injections completed CHAZ VALDIVIA [address] [facility], [place], [address], [facility] - [facility] 05/21/2025 12:17:54 04/17/20 25 Allergy Immunotherapy Injections completed Bren Stewart [address], [place], [address], [place] [facility] 04/17/2025 10:02:58 03/12/20 25 Allergy Immunotherapy Injections completed CHAZ VALDIVIA [address], [place], [address], [place] [facility] 03/12/2025 13:23:41 02/09/20 25 Allergy Immunotherapy Injections completed ORION RAPP, RMA [facility],[address] [place] [address], [address], [place] [facility] 02/08/2025 15:08:18 01/11/20 25 Allergy Immunotherapy Injections completed LETICIA MCCOLLUM RN [facility],[address], [address], [place] [facility] 01/10/2025 08:59:19 12/12/19 25 Allergy Immunotherapy Injections completed LETICIA MCCOLLUM RN 100 [facility],[address], [address], [place] [facility] 12/11/2024 09:56:21 11/14/19 25 Allergy Immunotherapy Injections completed ORION RAPP A [facility],[address], [address], [place] [facility] 11/13/2024 09:59:03 10/16/19 25 Allergy Immunotherapy Injections completed CHAZ VALDIVIA 100 [facility],[address], [address], [facility] - [facility] 10/16/2024 09:14:46 09/17/19 25 Wax_DP completed CONSTANTINO ANDUJAR MD 100 [facility],[address], [address], [place] [facility] 09/17/2024 09:42:19 09/13/19 25 Allergy Immunotherapy Injections completed CHAZ VALDIVIA [address] [facility],[address] [place] [address], [address], [place] [facility] 09/13/2024 14:15:30 08/21/20 24 Allergy Immunotherapy Injections completed ORION RAPP RMA [address] [facility],[address], [place], [address], [place] [facility] 08/21/2024 11:47:43 08/14/20 24 Allergy Immunotherapy Injections completed LETICIA MCCOLLUM RN [address] [place] [address], [address], [facility] - [facility] 08/14/2024 10:09:09 07/17/20 24 Allergy Immunotherapy Injections completed CHAZ VALDIVIA [address] [facility] [place] [address], [address], [facility] - [facility] 07/17/2024 10:08:40 06/15/20 24 Allergy Immunotherapy Injections completed ORION RAPP RMJose Guadalupe [address] [facility] [address], [place], [address], [facility] - [facility] 06/15/2024 13:13:55 05/22/20 24 Allergy Immunotherapy Injections completed ORION RAPP RMJose Guadalupe [address] [facility] [place] [address], [address], [facility] - [facility] 05/22/2024 12:56:50 04/12/20 24 Allergy Immunotherapy Injections completed LETICIA MCCOLLUM RN 100 [facility],[address], [address], [facility] - [facility] 04/12/2024 09:47:30 03/13/20 24 Allergy Immunotherapy Injections completed CHAZ VALDIVIA [address] [facility],[address] [place] [address], [address], [facility] - [facility] 03/13/2024 13:26:42 02/14/20 24 Allergy Immunotherapy Injections completed CHAZ VALDIVIA [address] [facility] [place],[address], [address], [facility] - [facility] 02/14/2024 12:52:32 Imaging Results None recorded. Procedure Notes None recorded. Medical Equipment None Reported. Allergies Allergen ID Allergen Name Allergen Category Reaction Reaction Severity Criticality Documentation Date Start Date Code Code System Note Provider Name and Address Organization Details Recorded Time 71491 loratadin e medicatio n other Not available Not available 01/24/2024 22794 RxNorm React ion: unkno wn, unspe cifie d;; Not Available [facility] 00:57:28 50740 ibuprofen medicatio n other Not available Not available 01/24/2024 5640 RxNorm React ion: unkno wn, unspe cifie d;; Not Available [facility] 4 00:57:30 59368 penicilli n V potassium medicatio n other Not available Not available 01/24/2024 96523 5 RxNorm React ion: unkno wn, unspe cifie d;; Not Available [facility] 4 00:57:34 74279 tramadol hydrochlo ride medicatio n other Not available Not available 01/24/2024 44861 RxNorm React ion: unkno wn, unspe cifie d;; Not Available [facility] 4 00:57:38 Medications Name Sig Start Date [...] by mouth 03/20 completed Medicati on ID: [id number] D uration Value: 14 Brand Name: nystatin Send Method: E-Prescr ibed Sub s Allowed: subs OK Speci al Instruct ion: 5 ml swish and spit four times daily x 2 weeks Me dication GenericN armida: nystatin Not Available Not Available Not Available doxycycli ne hyclate 100 mg capsule 03/20 completed Medicati on ID: [id number] D uration Value: 14 Prescri bed By [...] tablet 11/10 /2020 completed Medicati on ID: [id number] Br and Name: Celexa S end Method: E-Prescr ibed Sub s Allowed: subs OK Medic ationGen ericName : Celexa Not Available Not Available Not Available cetirizin e 10 mg tablet TAKE 1 TABLET BY MOUTH DAILY NEEDED FOR ALLERGY SYMPTOMS active Not Available Not Available No t Available cetirizin e 5 mg tablet 07/22 completed Medicati on ID: [id number] Br and Name: cetirizi ne Send Method: [...] 28 gauge 03/20 completed Medicati on ID: [id number] D uration Value: 90 Brand Name: FreeStyl e Lancets Send Method: E-Prescr ibed Sub s Allowed: subs OK Speci al Instruct ion: USE FOR BLOOD SUGAR TESTING ONCE A DAY [facility] FreeStyl e Lancets Not Available [...] inhalatio n 04/14 completed Medicati on ID: [id number] Re ason: () Brand Name: Advair Diskus [...] mg tablet 04/14 completed Medicati on ID: [id number] D uration Value: 7 Reason: () Brand [...] by mouth 03/20 completed Medicati on ID: [id number] D uration Value: 14 Prescri bed By [...] mg capsule 04/14 completed Medicati on ID: [id number] D uration Value: 90 Reason: () Brand Name: PAOLO Send Method: E-Prescr ibed Sub s Allowed: subs OK Speci al Instruct ion: TK 1 C PO BID Medi cationGe nericNam e: DOK Not Available Not Available Not Available Triple Antibioti c 3.5 mg-400 unit-5,00 0 unit/gram topical ointment 03/20 completed Not Available Not Available Not Available Wenwo Ultra Test strips USE DAILY FOR BLOOD [...] eye drops 03/20 completed Medicati on ID: [id number] D uration Value: 45 Brand Name: olopatad [...] by mouth 12/23 completed Medicati on ID: [id number] D uration Value: 30 Prescri bed By [...] No t Available Nasonex 50 mcg/actua tion [place] 2 spray into both nostrils 03/20 completed Medicati on ID: [id number] Du ration Value: 30 Brand Name: Nasonex [...] mg tablet 12/23 completed Medicati on ID: [id number] Re ason: () Brand Name: lisinopr il Send Method: E-Prescr ibed Sub s Allowed: subs OK Medic ationGen ericName : lisinopr il Not Available Not Available Not Available Ambien 5 mg tablet 12/23 completed Medicati on ID: [id number] Re ason: () Brand Name: Ambien S end Method: E-Prescr ibed Sub s Allowed: subs OK Medic ationGen ericName : Ambien Not Available Not Available Not Available ipratropi um bromide 21 mcg (0.03 %) nasal spray 2018 active Medicati on ID: [id number] D uration Value: 84 Brand Name: ipratrop ium bromide Send Method: E-Prescr ibed Sub s Allowed: subs OK Medic ationGen ericName : ipratrop ium bromide Not Available Not Available Not Available glipizide 5 mg tablet 12/23 completed Medicati on ID: [id number] Re ason: () Brand Name: glipizid e Send Method: E-Prescr ibed Sub s Allowed: subs OK Medic ationGen ericName : glipizid e Not Available Not Available Not Available Artificia l Tears (polyviny l alcohol) 1.4 % eye drops 03/20 completed Medicati on ID: [id number] D uration Value: 15 Brand Name: Artifici [...] mg tablet 03/20 completed Medicati on ID: [id number] D uration Value: 30 Brand Name: pop [...] layed release 12/23 completed Medicati on ID: [id number] P rescribe d By Name: ROD Morales nd Name: doxycycl ine hyclate Send Method: E-Prescr ibed Sub s Allowed: subs OK Júnior al Instruct ion: 1 po bid X 14 days Med icationG enericNa me: doxycycl ine hyclate Not Available Not Available Not Available DermOtic Oil 0.01 % ear drops Instill 5 drop twice a day as directed 03/20 completed Medicati on ID: [id number] P rescribe d By Name: ROD Lala [...] mg tablet 12/16 completed Medicati on ID: [id number] D uration Value: 30 Brand Name: levoceti rizine S end Method: E-Prescr ibed Sub s Allowed: subs OK Medic ationGen ericName : levoceti rizine Not Available Not Available Not Available omeprazol e 20 mg tablet,de layed release 10/02 completed Medicati on ID: [id number] Re ason: () Brand Name: omeprazo le [...] topical ointment 2018 active Medicati on ID: [id number] D uration Value: 30 Brand Name: lidocain e Send Method: E-Prescr ibed Sub s Allowed: subs OK Medic ationGen ericName : lidocain e Not Available Not Available Not Available Virtussin AC 10 mg-100 mg/5 mL oral liquid 10/02 completed Medicati on ID: [id number] D uration Value: 4 Reason: () Brand Name: Virtussi n AC Send Method: E-Prescr ibed Sub s Allowed: subs OK Medic ationGen ericName : Virtussi n AC Not Available Not Available Not Available Trulicity 0.75 mg/0.5 mL subcutane ous pen injector 03/20 completed Medicati on ID: [id number] D uration Value: 28 Brand Name: Trulicit [...] inhalatio n 03/20 completed Medicati on ID: [id number] D uration Value: 30 Brand Name: Berna [...] ICD10 Code Diagnosis IMO Codes Diagnosis Note 82891 CHAZ VALDIVIA Allergy 100 [facility], [address] [place] [address] 05/21/2025 11:17:28 05/21/2025 12:18:20 Perennial allergic rhinitis [id number] J30.89 Health Concerns Section Related Observation LastModified by Organization Detai ls LastModified Time None Recorded Concern Status LastModified by Organization Details LastModified Time None Recorded Payers Encounter Date Sequence Insurance Name Policy Number Policy Sellers Covered Member ID Sellers Member ID Guarantor Name 05/21/2025 1 [facility] - DOS ON OR AFTER 2022 - MEDICARE [place]VANTAGE [place] (MEDICARE [place]PLACEMENT/AD VANTAGE - PPO) Jana Woods [id number] Jana Woods OBGyn Episode No OBEpisode recorded.
== END 2025-07-31 09:18 | disposition home or self-care (01) ==
LOC: HO.HPS 08:39
PROVIDERS: PCP Family Medicine; Visit Provider Hospitalist
DX: T78.40XA Allergy, unspecified, initial encounter (principal); J45.40 Moderate persistent asthma, uncomplicated
CPT/HCPCS: 99214

== ENCOUNTER → 2025-07-31 08:38 | Outpatient (BNVA) | payer OTHER, SELFPAY | PROVIDERS: PCP Family Medicine; Visit Provider Hospitalist | DX: T78.40XA Allergy, unspecified, initial encounter (principal); J45.40 Moderate persistent asthma, uncomplicated; Z87.891 Personal history of nicotine dependence | CPT/HCPCS: 99212 ==

== ENCOUNTER 2025-08-02 09:34 | Outpatient (AMB) | payer OTHER, SELFPAY ==
--- NOTE | 2025-08-02 09:36 | A.OFFVIS_ITS ---
Vital Signs 08/02/25 09:45 Height 5 ft 2 in Weight 141 lb 5.061 oz BMI 25.8 BP 124/70 Blood Pressure Location Lt brachial Position Sitting Pulse 73 Pulse Source Pulse Oximeter Pulse Oximetry (%) 98 Oxygen Delivery Method Room Air Intake Visit Reasons: follow up Intake Note: Patient presents for Osteoporosis follow up. Farmworker General Required: Yes Farmworker General Language: Hospice Plan Administrator Services: Farmworker General Offered & Declined Farmworker General Name: Leesa Bejarano Information Interpreted: non-clinical & clinical Assembly Line Supervisor: Assembly Line Supervisor Present (Cailin Bejarano) Accompanied by: Translater Allergies aspirin Allergy (Unknown, Verified 08/02/25 09:44) Rash ibuprofen Allergy (Unknown, Verified 08/02/25 09:44) Rash loratadine Allergy (Unknown, Verified 08/02/25 09:44) Rash pneumococcal vaccine Allergy (Unknown, Verified 08/02/25 09:44) Rash Penicillins Allergy (Verified 08/02/25 09:44) Rash Seafood Allergy (Unknown, Uncoded 11/01/24 13:07) Rash flu vaccine Allergy (Uncoded 11/01/24 13:07) Rash shingles vaccine Allergy (Uncoded 11/01/24 13:07) rash Medication List - Last Reconciled 08/02/25 by Rena Medel MD acetaminophen ER 650 mg PO Q12H PRN albuterol-budesonide 90-80 mcg/actuation (Airsupra) 2 inhalations inhalation BID PRN aripiprazole 2 mg PO BEDTIME cetirizine (All Day Allergy (cetirizine)) 10 mg PO DAILY PRN cholecalciferol (vitamin D3) 25 mcg PO DAILY citalopram (Celexa) 20 mg PO DAILY clopidogrel (Plavix) 75 mg PO DAILY diclofenac sodium 1% topical diphenhydramine HCl (Allergy (diphenhydramine)) 25 mg PO BEDTIME PRN docusate sodium (DOK) 100 mg PO BID epinephrine IM ezetimibe (Zetia) 10 mg PO DAILY ketotifen fumarate 0.025%(0.035%) drps ophthalmic (eye) losartan 50 mg PO DAILY melatonin 3 mg PO BEDTIME PRN montelukast (Singulair) 10 mg PO DAILY oxycodone 5 mg PO BID PRN pantoprazole DR 40 mg PO DAILY sennosides (senna) 8.6 mg PO DAILY simethicone (Gas Relief Extra Strength) 125 mg PO QID triamcinolone acetonide intranasal valacyclovir 500 mg PO DAILY HPI Comments Details: Patient is a 65 y.o. female with HTN c/b CAD, HLD, polyarticular OA and osteoporosis here today for follow up Interval History: Patient last seen 05/03/25 with me - Not on any rheum emds - Following up for osteoporosis - DEXA scan 04/2025 shows severe osteroporosis T score -4.0, AP spine - NM parathyroid scan without evidence of parathyroid adenoma - Recommended treatment for her severe osteoporosis - Patient wanted to discuss this with her Administrative Nursing Supervisor Today - Not on any rheum meds - Would prefer to continue her osteoporosis therapy here - Requesting referral to PT for her hand OA Rheumatologic History: Osteoporosis - DEXA 04/2025: T score -4.0 osteoporosis Initial History: Patient states that she was diagnosed with osteoporosis ?a while ago? and was sent to endocrinology where they wanted to start her on an injection however she wanted to get a 2nd opinion. No history of falls or fractures. Risk Factor Assessment: ? Menarche: Started at age 13, menopause at age 48 ? Family history including hip fracture: No ? Estrogen deficiency: No ? Sedentary lifestyle: Yes ? Cigarette smoking: Does not smoke ? Excessive alcohol: Not drink alcohol ? Excessive caffeine: No excessive caffeine No high-risk medication taken such as: ? Glucocorticoids ? Excess thyroid hormone ? Anticonvulsants ? Heparin ? Krupp ? SSRIs ? Aromatase Also has polyarticular osteoarthritis for which she is complains of polyarticular joint pain. Specifically today she is complaining of right 2nd PIP pain Current Rheumatology Medication(s): [facility] Medical History (Updated 04/23/25 @ 22:38 by Darryn Owens MD) Asthma Allergies History of kidney stones HTN (hypertension) Nephrolithiasis Surgical History H/O eye surgery History of carpal tunnel surgery S/P removal of left ovary Hx of tubal ligation History of section Family History Sister Diabetes Cancer Father Cancer Social History Household Members: None Housing: House Alcohol intake: never Patient Tobacco Use Status: Former Tobacco user Current occupational status: disabled Sexual orientation: Straight/Heterosexual Gender identity: Female Review of Systems Narrative Review of Systems Constitutional: Denies fever, chills, weight loss ENT: Denies vision changes, eye pain or eye redness, dental caries, dry mouth GI: Denies nausea, vomiting, diarrhea, abdominal pain, change in BM Pulm: Denies SOB, AMBROCIO, hemoptysis, wheezing Cards: Denies chest pain, palpitations Skin: Denies Raynaud's, rash, nail changes, photosensitivity, BROWN STOCK WASHER: Denies headaches, weakness, paresthesias, recurrent falls MSK: as per HPI All other systems reviewed and are unremarkable except noted above Physical Exam Exam Exam: exam deferred for today Vital Signs: Last Vital Signs Pulse 73 08/02/25 09:45 BP 124/70 08/02/25 09:45 Pulse Ox 98 08/02/25 09:45 Oxygen Delivery Method Room Air 08/02/25 09:45 BMI result Body Mass Index 25.8 Results Reviewed Results Reviewed: Laboratory Tests 02/06/25 04/02/25 11:49 16:02 WBC 5.2 RBC 4.24 Hgb 12.8 Hct 38.6 Plt Count 125 L ESR 16 Sodium 142 Potassium 4.2 Chloride 107 Carbon Dioxide 28 BUN 16 Creatinine 0.81 AST 33 H ALT 33 H C-Reactive Protein < 0.10 25-OH Vitamin D Total 44 PTH Intact 79.2 H 89.2 H DEXA 04/2025 FINDINGS: The bone mineral density of the lumbar spine is 0.683 g/cm2, corresponding to a T-score of -4.1, and a Z-score of -2.4. This is indicative of osteoporosis. The bone mineral density of the left total hip is 0.727 g/cm2, corresponding to a T-score of -2.2, and a Z-score of -0.9. This is indicative of osteopenia. The bone mineral density of the left femoral neck is 0.647 g/cm2, corresponding to a T-score of -2.8, and a Z-score of -1.2. This is indicative of osteoporosis. NM Parathyroid Scan 02/2025 FINDINGS: Early images of the neck demonstrate a homogeneous distribution of activity in both thyroid lobes. No foci of abnormal activity are identified. Delayed images demonstrate washout from the thyroid. No residual activity is seen to suggest a parathyroid adenoma. This is confirmed on SPECT imaging. IMPRESSION: No scintigraphic evidence of a parathyroid adenoma. Assessment & Plan Assessment & Plan (1) Osteoporosis: Code(s): M81.0 - Age-related osteoporosis without current pathological fracture Qualifiers: Osteoporosis type: age-related Presence of current pathological fracture: without current pathological fracture Qualified Code(s): M81.0 - Age- related osteoporosis without current pathological fracture Plan: #Osteoporosis Patient is a 65 year old female with osteoporosis here today for follow up. DEXA scan 04/2025 shows severe osteoporosis with highest T score at the spine -4.1 Given her severe osteoporosis she requires anabolic agents Will start PA for Evenity Plan - Evenity 210mg SC every monthy for 18 months - Labs before Evenity: CMP and Vit D - RTC 6 months - Labs before visit: CMP, Vit D (2) Generalized osteoarthritis: Code(s): M15.9 - Polyosteoarthritis, unspecified Plan: #Generalized OA Patient with polyarticular osteoarthritis. Discussed with patient the chronicity and natural history of osteoarthritis. She is currently using topical diclofenac. We can consider joint injections in the future Plan - Topical diclofenac 1% 4 times a day - Tylenol arthritis 650mg bid (3) Hyperparathyroidism: Code(s): E21.3 - Hyperparathyroidism, unspecified Plan: #Elevated PTH Patient with elevated PTH without known diagnosis or workup for hyperparathyroidism. NM parathyroid scan without evidence of parathyroid adenomas Plan - Continue Endo follow up Plan I spent 20 minutes reviewing the record and labs, taking a history, examining the patient, discussing the treatment plan, and documenting in the medical record Orders: Orders Vitamin D 25-OH Total Today Z79.899 - Other penitentiary (current) drug therapy Calcium 6 Months Z79.899 - Other intermediate frame tender (current) drug therapy Creatinine 6 Months Z79.899 - Other intermediate frame tender (current) drug therapy Vitamin D 25-OH Total 6 Months Z79.899 - Other penitentiary (current) drug therapy OT Evaluation and Treatment Today M19.041 - Primary osteoarthritis, right hand, M19.042 - Primary osteoarthritis, left hand Calcium Today Z79.899 - Other intermediate frame tender (current) drug therapy Creatinine Today Z79.899 - Other penitentiary (current) drug therapy Coding Level of Care Code Est Pt Level 3 (49070) Complex visit Add On G2211 Diagnoses Age-related osteoporosis without current pathological fracture M81.0 Osteoporosis type: age-related Presence of current pathological fracture: without current pathological fracture Generalized osteoarthritis M15.9 Hyperparathyroidism E21.3
[2025-08-02 09:45] VITALS: BP 124/70; PULSE 73; O2SAT 98; BMI 25.8
--- OUTSIDE RECORDS SUMMARY | 2025-08-02 10:09 | XMS_ITS | Continuity of Care Document ---
Author Organization [place] [facility], Allergy Address [address] [address] Care Team Providers Care Cabinet Worker Name Role Phone VIJAY BALBUENA Primary Care Provider [phone] Assessment Encounter Date Assessment Date Assessment LastModified by Organization Details LastModified Time 05/21/2025 05/21/2025 Visit With: Mae Mack Use of Antihistamine s: No If yes: Vial Test Yes Change in medications: No If yes Increase in asthma symptoms If yes, inhaler use: Reaction to last injections: No If yes: Allergy Symptoms: Other: Missed: Dose Aware of Vial Test Aware: Notes: [email or web address] Not available 05/21/2025 12:18:03 Plan of Treatment Reminders Order Date Submit Date Provider Last Modified By Organization Details Last Modified Time Details Appointments [facility]- Allergy f-up 6mon 2025 09:00A M CONSTANTINO [...] Address Organization Details Recorded Time Impacted cerumen [id number] Active 2013 Impacted cerumen; Note: Date Diagnosed : 4 12:17 PM (380.4) Not Available [facility] 4 02:31:07 Temporoma ndibular joint disorder 63634062 Active 2014 Temporoma ndibular joint disorder; Note: Date Diagnosed : 10/09/2014 2:21 PM (524.60) Not Available [facility] 4 02:31:22 Tinnitus 17812537 Active 2014 Tinnitus, unspecifi ed; Note: Date Diagnosed : 10/09/2014 2:50 PM (388.30) Not Available [facility] 4 02:31:08 Impacted cerumen of bilateral ears [id number] 01850 Active 2014 Impacted cerumen, bilateral ; Note: Date Diagnosed : 04/09/2015 11:03 AM (H61.23) [mapped from ICD9 code: 380.4] Not Available [facility] 4 02:31:19 Dysphonia 94160204 Active 2018 Hoarsenes s; Note: Date Diagnosed : 04/03/2019 9:27 AM (R49.0) Not Available [facility] 4 02:31:16 Gastroeso phageal reflux disease without esophagit is 247254283 Active 2019 Gastro-es ophageal reflux disease without esophagit is; Note: Date Diagnosed : 10/02/2019 10:28 AM (K21.9) Not Available [facility] 4 02:31:12 Acute laryngiti s 2566775 Active 2019 Acute laryngiti s; Note: Date Diagnosed : 10/02/2019 10:28 AM (J04.0) Not Available [facility] 4 02:31:13 Mild intermitt ent asthma 794745659 Active 2019 Mild intermitt ent asthma NOS; Note: Date Diagnosed : 0 2:31 PM (J45.20) Not Available [facility] 4 02:31:25 Acute sinusitis 06770042 Active 2020 Other acute sinusitis ; Note: Date Diagnosed : 01/23/2021 1:08 PM (J01.80) Not Available [facility] 4 02:31:11 Finding of resonance of voice 799301935 Active 2022 Unspecifi ed voice and resonance disorder; Note: Date Diagnosed : 02/03/2023 6:17 AM (R49.9) Not Available [facility] 4 02:31:18 Stomatiti s 65951104 Active 2022 Oral thrush; Note: Date Diagnosed : 02/03/2023 6:17 AM (B37.0) Not Available [facility] 4 02:31:09 Candidias is of mouth 30061986 Active 2022 Oral thrush; Note: Date Diagnosed : 02/03/2023 6:17 AM (B37.0) Not Available [facility] 4 02:31:09 Allergic rhinitis 06325059 Active 2023 SCIT Apr 2020 monthly shots since 11/2022 CONSTANTINO ANDUJAR MD [address], [place], [address] , [place] [facility] 08:51:04 Perennial allergic rhinitis 322222030 Active 2023 ORION RAPP, RMA [address] [facility], [place], [address] , [place] [facility] 14:22:55 Problem Notes None recorded. Procedures Surgical History Date Name Laterality Status Provider Name and Address Organization Details Recorded Time 07/16/20 25 Allergy Immunotherapy Injections completed CHAZ VALDIVIA [address] [facility], [place], [address], [facility] - [facility] 07/16/2025 08:59:14 06/14/20 25 Allergy Immunotherapy Injections completed ORION RAPP RMA [address], [place], [address], [place] [facility] 06/14/2025 14:23:12 05/21/20 25 Allergy Immunotherapy Injections completed CHAZ VALDIVIA [address] [facility], [place], [address], [facility] - [facility] 05/21/2025 12:17:54 04/17/20 25 Allergy Immunotherapy Injections completed Bren Stewart [address], [place], [address], [place] [facility] 04/17/2025 10:02:58 03/12/20 25 Allergy Immunotherapy Injections completed CHAZ AVLDIVIA [address], [place], [address], [place] [facility] 03/12/2025 13:23:41 02/09/20 25 Allergy Immunotherapy Injections completed ORION RAPP, RMA [facility] [place] [address], [address], [place] [facility] 02/08/2025 15:08:18 01/11/20 25 Allergy Immunotherapy Injections completed LETICIA MCCOLLUM RN [address] [facility], [address], [place] [facility] 01/10/2025 08:59:19 12/12/19 25 Allergy Immunotherapy Injections completed LETICIA MCCOLLUM RN 100 [facility],[address], [address], [place] [facility] 12/11/2024 09:56:21 11/14/19 25 Allergy Immunotherapy Injections completed ORION RAPP A [address] [facility],[address], [address], [place] [facility] 11/13/2024 09:59:03 10/16/19 25 Allergy Immunotherapy Injections completed CHAZ VALDIVIA [address] [facility],[address], [address], [facility] - [facility] 10/16/2024 09:14:46 09/17/19 25 Wax_DP completed CONSTANTINO ANDUJAR MD [address] [facility],[address], [address], [place] [facility] 09/17/2024 09:42:19 09/13/19 25 Allergy Immunotherapy Injections completed CHAZ VALDIVIA [address] [facility],[address] [place] [address], [address], [place] [facility] 09/13/2024 14:15:30 08/21/20 24 Allergy Immunotherapy Injections completed ORION RAPP RMA [address] [facility], [place], [address], [place] [facility] 08/21/2024 11:47:43 08/14/20 24 Allergy Immunotherapy Injections completed LETICIA MCCOLLUM RN [address] [place] [address], [address], [facility] - [facility] 08/14/2024 10:09:09 07/17/20 24 Allergy Immunotherapy Injections completed CHAZ VALDIVIA [address] [place] [address], [address], [facility] - [facility] 07/17/2024 10:08:40 06/15/20 24 Allergy Immunotherapy Injections completed ORION RAPP RMJose Guadalupe [address], [place], [address], [facility] - [facility] 06/15/2024 13:13:55 05/22/20 24 Allergy Immunotherapy Injections completed ORION RAPP RMJose Guadalupe [address] [place] [address], [address], [facility] - [facility] 05/22/2024 12:56:50 04/12/20 24 Allergy Immunotherapy Injections completed LETICIA MCCOLLUM RN [address] [facility],[address], [address], [facility] - [facility] 04/12/2024 09:47:30 03/13/20 24 Allergy Immunotherapy Injections completed CHAZ VALDIVIA [address] [facility],[address] [place] [address], [address], [facility] - [facility] 03/13/2024 13:26:42 02/14/20 24 Allergy Immunotherapy Injections completed CHAZ VALDIVIA [address] [facility],[address], [address], [facility] - [facility] 02/14/2024 12:52:32 Imaging Results None recorded. Procedure Notes None recorded. Medical Equipment None Reported. Allergies Allergen ID Allergen Name Allergen Category Reaction Reaction Severity Criticality Documentation Date Start Date Code Code System Note Provider Name and Address Organization Details Recorded Time 80447 loratadin e medicatio n other Not available Not available 01/24/2024 58936 RxNorm React ion: unkno wn, unspe cifie d;; Not Available [facility] 00:57:28 12737 ibuprofen medicatio n other Not available Not available 01/24/2024 5640 RxNorm React ion: unkno wn, unspe cifie d;; Not Available [facility] 4 00:57:30 21040 penicilli n V potassium medicatio n other Not available Not available 01/24/2024 27729 5 RxNorm React ion: unkno wn, unspe cifie d;; Not Available [facility] 4 00:57:34 85166 tramadol hydrochlo ride medicatio n other Not available Not available 01/24/2024 86374 RxNorm React ion: unkno wn, unspe cifie d;; Not Available [facility] 4 00:57:38 Medications Name Sig Start Date [...] by mouth 03/20 completed Medicati on ID: [id number] D uration Value: 14 Brand Name: nystatin Send Method: E-Prescr ibed Sub s Allowed: subs OK Speci al Instruct ion: 5 ml swish and spit four times daily x 2 weeks Me dication GenericN armida: nystatin Not Available Not Available Not Available doxycycli ne hyclate 100 mg capsule 03/20 completed Medicati on ID: [id number] D uration Value: 14 Prescri bed By [...] tablet 11/10 /2020 completed Medicati on ID: [id number] Br and Name: Celexa S end Method: E-Prescr ibed Sub s Allowed: subs OK Medic ationGen ericName : Celexa Not Available Not Available Not Available cetirizin e 10 mg tablet TAKE 1 TABLET BY MOUTH DAILY NEEDED FOR ALLERGY SYMPTOMS active Not Available Not Available No t Available cetirizin e 5 mg tablet 07/22 completed Medicati on ID: [id number] Br and Name: cetirizi ne Send Method: [...] 28 gauge 03/20 completed Medicati on ID: [id number] D uration Value: 90 Brand Name: FreeStyl e Lancets Send Method: E-Prescr ibed Sub s Allowed: subs OK Speci al Instruct ion: USE FOR BLOOD SUGAR TESTING ONCE A [facility] FreeStyl e Lancets Not [...] inhalatio n 04/14 completed Medicati on ID: [id number] Re ason: () Brand Name: Advair Diskus [...] mg tablet 04/14 completed Medicati on ID: [id number] D uration Value: 7 Reason: () Brand [...] by mouth 03/20 completed Medicati on ID: [id number] D uration Value: 14 Prescri bed By [...] mg capsule 04/14 completed Medicati on ID: [id number] D uration Value: 90 Reason: () Brand Name: PAOLO Send Method: E-Prescr ibed Sub s Allowed: subs OK Speci al Instruct ion: TK 1 C PO BID Medi cationGe nericNam e: DOK Not Available Not Available Not Available Triple Antibioti c 3.5 mg-400 unit-5,00 0 unit/gram topical ointment 03/20 completed Not Available Not Available Not Available [employer] Ultra Test strips USE DAILY FOR BLOOD [...] eye drops 03/20 completed Medicati on ID: [id number] D uration Value: 45 Brand Name: olopatad [...] by mouth 12/23 completed Medicati on ID: [id number] D uration Value: 30 Prescri bed By [...] No t Available Nasonex 50 mcg/actua tion U[place] 2 spray into both nostrils 03/20 completed Medicati on ID: [id number] Du ration Value: 30 Brand Name: Nasonex [...] mg tablet 12/23 completed Medicati on ID: [id number] Re ason: () Brand Name: lisinopr il Send Method: E-Prescr ibed Sub s Allowed: subs OK Medic ationGen ericName : lisinopr il Not Available Not Available Not Available Ambien 5 mg tablet 12/23 completed Medicati on ID: [id number] Re ason: () Brand Name: Ambien S end Method: E-Prescr ibed Sub s Allowed: subs OK Medic ationGen ericName : Ambien Not Available Not Available Not Available ipratropi um bromide 21 mcg (0.03 %) nasal spray 2018 active Medicati on ID: [id number] D uration Value: 84 Brand Name: ipratrop ium bromide Send Method: E-Prescr ibed Sub s Allowed: subs OK Medic ationGen ericName : ipratrop ium bromide Not Available Not Available Not Available glipizide 5 mg tablet 12/23 completed Medicati on ID: [id number] Re ason: () Brand Name: glipizid e Send Method: E-Prescr ibed Sub s Allowed: subs OK Medic ationGen ericName : glipizid e Not Available Not Available Not Available Artificia l Tears (polyviny l alcohol) 1.4 % eye drops 03/20 completed Medicati on ID: [id number] D uration Value: 15 Brand Name: Artifici [...] mg tablet 03/20 completed Medicati on ID: [id number] D uration Value: 30 Brand Name: pop [...] layed release 12/23 completed Medicati on ID: [id number] P rescribe d By Name: ROD Morales nd Name: doxycycl ine hyclate Send Method: E-Prescr ibed Sub s Allowed: subs OK Júnior al Instruct ion: 1 po bid X 14 days Med icationG enericNa me: doxycycl ine hyclate Not Available Not Available Not Available DermOtic Oil 0.01 % ear drops Instill 5 drop twice a day as directed 03/20 completed Medicati on ID: [id number] P rescribe d By Name: ROD Lala [...] mg tablet 12/16 completed Medicati on ID: [id number] D uration Value: 30 Brand Name: levoceti rizine S end Method: E-Prescr ibed Sub s Allowed: subs OK Medic ationGen ericName : levoceti rizine Not Available Not Available Not Available omeprazol e 20 mg tablet,de layed release 10/02 completed Medicati on ID: [id number] Re ason: () Brand Name: omeprazo le [...] topical ointment 2018 active Medicati on ID: [id number] D uration Value: 30 Brand Name: lidocain e Send Method: E-Prescr ibed Sub s Allowed: subs OK Medic ationGen ericName : lidocain e Not Available Not Available Not Available Virtussin AC 10 mg-100 mg/5 mL oral liquid 10/02 completed Medicati on ID: [id number] D uration Value: 4 Reason: () Brand Name: Virtussi n AC Send Method: E-Prescr ibed Sub s Allowed: subs OK Medic ationGen ericName : Virtussi n AC Not Available Not Available Not Available Trulicity 0.75 mg/0.5 mL subcutane ous pen injector 03/20 completed Medicati on ID: [id number] D uration Value: 28 Brand Name: Trulicit [...] inhalatio n 03/20 completed Medicati on ID: [id number] D uration Value: 30 Brand Name: Berna [...] ICD10 Code Diagnosis IMO Codes Diagnosis Note 85818 CHAZ VALDIVIA Allergy [address] [facility], [address] [place] [address] 05/21/2025 11:17:28 05/21/2025 12:18:20 Perennial allergic rhinitis [id number] J30.89 Health Concerns Section Related Observation LastModified by Organization Detai ls LastModified Time None Recorded Concern Status LastModified by Organization Details LastModified Time None Recorded Payers Encounter Date Sequence Insurance Name Policy Number Policy Sellers Covered Member ID Sellers Member ID Guarantor Name 05/21/2025 1 [facility] - DOS ON OR AFTER 2022 - MEDICARE [place]VANTAGE [place] (MEDICARE REPLACEMENT/AD VANTAGE - PPO) Jana Woods [id number] Jana Woods OBGyn Episode No OBEpisode recorded.
--- OUTSIDE RECORDS SUMMARY | 2025-08-02 10:09 | XMS_ITS | Continuity of Care Document ---
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 Name Role Phone VIJAY BALBUENA Primary Care Provider [phone] Assessment Encounter Date Assessment Date Assessment LastModified [...] Organization Details Last Modified Time Details Appointments [facility]- Allergy f-up 6mon 2025 09:00A M CONSTANTINO [...] Address Organization Details Recorded Time Impacted cerumen [id number] Active 2013 Impacted cerumen; Note: Date Diagnosed : 4 12:17 PM (380.4) Not Available [facility] 4 02:31:07 Temporoma ndibular joint disorder 78641722 Active 2014 Temporoma ndibular joint disorder; Note: Date Diagnosed : 10/09/2014 2:21 PM (524.60) Not Available [facility] 4 02:31:22 Tinnitus 15258561 Active 2014 Tinnitus, unspecifi ed; Note: Date Diagnosed : 10/09/2014 2:50 PM (388.30) Not Available [facility] 4 02:31:08 Impacted cerumen of bilateral ears [id number] Active 2014 Impacted cerumen, bilateral ; Note: Date Diagnosed : 04/09/2015 11:03 AM (H61.23) [mapped from ICD9 code: 380.4] Not Available [facility] 4 02:31:19 Dysphonia 48281563 Active 2018 Hoarsenes s; Note: Date Diagnosed : 04/03/2019 9:27 AM (R49.0) Not Available [facility] 4 02:31:16 Gastroeso phageal reflux disease without esophagit is 899334739 Active 2019 Gastro-es ophageal reflux disease without esophagit is; Note: Date Diagnosed : 10/02/2019 10:28 AM (K21.9) Not Available [facility] 4 02:31:12 Acute laryngiti s 4912070 Active 2019 Acute laryngiti s; Note: Date Diagnosed : 10/02/2019 10:28 AM (J04.0) Not Available [facility] 4 02:31:13 Mild intermitt ent asthma 227464974 Active 2019 Mild intermitt ent asthma NOS; Note: Date Diagnosed : 0 2:31 PM (J45.20) Not Available [facility] 4 02:31:25 Acute sinusitis 69918937 Active 2020 Other acute sinusitis ; Note: Date Diagnosed : 01/23/2021 1:08 PM (J01.80) Not Available [facility] 4 02:31:11 Finding of resonance of voice 197746663 Active 2022 Unspecifi ed voice and resonance disorder; Note: Date Diagnosed : 02/03/2023 6:17 AM (R49.9) Not Available [facility] 4 02:31:18 Stomatiti s 26157584 Active 2022 Oral thrush; Note: Date Diagnosed : 02/03/2023 6:17 AM (B37.0) Not Available [facility] 4 02:31:09 Candidias is of mouth 48816232 Active 2022 Oral thrush; Note: Date Diagnosed : 02/03/2023 6:17 AM (B37.0) Not Available [facility] 4 02:31:09 Allergic rhinitis 00946273 Active 2023 SCIT Apr 2020 monthly shots since 11/2022 CONSTANTINO ANDUJAR MD [address], [place], [address] , [place] [facility] 08:51:04 Perennial allergic rhinitis 493157577 Active 2023 ORION RAPP, RMA [address] [facility], [place], [address] , [place] - [facility] 14:22:55 Problem Notes None recorded. Procedures Surgical History Date Name Laterality Status Provider Name and Address Organization Details Recorded Time 07/16/20 25 Allergy Immunotherapy Injections completed CHAZ VALDIVIA [address], [place], [address], [facility] - [facility] 07/16/2025 08:59:14 06/14/20 25 Allergy Immunotherapy Injections completed ORION RAPP RMA [address], [place], [address], [place] [facility] 06/14/2025 14:23:12 05/21/20 25 Allergy Immunotherapy Injections completed CHAZ VALDIVIA [address], [place], [address], [place] [facility] 05/21/2025 12:17:54 04/17/20 25 Allergy Immunotherapy Injections completed Bren Stewart [address], [place], [address], [place] [facility] 04/17/2025 10:02:58 03/12/20 25 Allergy Immunotherapy Injections completed CHAZ VALDIVIA [address], [place], [address], [place] [facility] 03/12/2025 13:23:41 02/09/20 25 Allergy Immunotherapy Injections completed ORION RAPP RMA [address] [place] [address], [address], [place] [facility] 02/08/2025 15:08:18 01/11/20 25 Allergy Immunotherapy Injections completed LETICIA MCCOLLUM RN [address] [facility] [place], [place], [address], [place] [facility] 01/10/2025 08:59:19 12/12/19 25 Allergy Immunotherapy Injections completed LETICIA MCCOLLUM RN [address] [facility] [place],[address], [address], [place] [facility] 12/11/2024 09:56:21 11/14/19 25 Allergy Immunotherapy Injections completed ORION RAPP RMA [address] [facility] [place],[address] [place] [address], [address], [place] [facility] 11/13/2024 09:59:03 10/16/19 25 Allergy Immunotherapy Injections completed CHAZ VALDIVIA [address] [facility] [place],[address] [place] [address], [address], [place] [facility] 10/16/2024 09:14:46 09/17/19 25 Wax_DP completed CONSTANTINO ANDUJAR MD [address] [facility] [place],[address], [address], [place] [facility] 09/17/2024 09:42:19 09/13/19 25 Allergy Immunotherapy Injections completed CHAZ VALDIVIA [address] [place] [address], [address], [place] [facility] 09/13/2024 14:15:30 08/21/20 24 Allergy Immunotherapy Injections completed ORION RAPP RMA [address], [place], [address], [place] [facility] 08/21/2024 11:47:43 08/14/20 24 Allergy Immunotherapy Injections completed LETICIA MCCOLLUM RN [address] [facility] [place], [place], [address], [facility] - [facility] 08/14/2024 10:09:09 07/17/20 24 Allergy Immunotherapy Injections completed CHAZ VALDIVIA [address] [place] [address], [address], [facility] - [facility] 07/17/2024 10:08:40 06/15/20 24 Allergy Immunotherapy Injections completed ORION RAPP RMA [address] [place] [address], [address], [facility] - [facility] 06/15/2024 13:13:55 05/22/20 24 Allergy Immunotherapy Injections completed ORION RAPP RMJose Guadalupe [address] [facility] [place],[address] [place] [address], [address], [facility] - [facility] 05/22/2024 12:56:50 04/12/20 24 Allergy Immunotherapy Injections completed LETICIA MCCOLLUM RN 100 [facility],[address], [address], [facility] - [facility] 04/12/2024 09:47:30 03/13/20 24 Allergy Immunotherapy Injections completed CHAZ VALDIVIA [address] [facility] [place],[address], [address], [facility] - [facility] 03/13/2024 13:26:42 02/14/20 24 Allergy Immunotherapy Injections completed CHAZ VALDIVIA [address] [facility] [place],[address], [address], [facility] - [facility] 02/14/2024 12:52:32 Imaging Results None recorded. Procedure Notes None recorded. Medical Equipment None Reported. Allergies Allergen ID Allergen Name Allergen Category Reaction Reaction Severity Criticality Documentation Date Start Date Code Code System Note Provider Name and Address Organization Details Recorded Time 38075 loratadin e medicatio n other Not available Not available 01/24/2024 89973 RxNorm React ion: unkno wn, unspe cifie d;; Not Available [facility] 00:57:28 26921 ibuprofen medicatio n other Not available Not available 01/24/2024 5640 RxNorm React ion: unkno wn, unspe cifie d;; Not Available [facility] 4 00:57:30 35477 penicilli n V potassium medicatio n other Not available Not available 01/24/202492946 5 RxNorm React ion: unkno wn, unspe cifie d;; Not Available [facility] 4 00:57:34 61966 tramadol hydrochlo ride medicatio n other Not available Not available 01/24/2024 91945 RxNorm React ion: unkno wn, unspe cifie d;; Not Available [facility] 4 00:57:38 Medications Name Sig Start Date [...] by mouth 03/20 completed Medicati on ID: [id number] D uration Value: 14 Brand Name: nystatin Send Method: E-Prescr ibed Sub s Allowed: subs OK Speci al Instruct ion: 5 ml swish and spit four times daily x 2 weeks Me dication GenericN armida: nystatin Not Available Not Available Not Available doxycycli ne hyclate 100 mg capsule 03/20 completed Medicati on ID: [id number] D uration Value: 14 Prescri bed By [...] mg tablet 07/22 completed Medicati on ID: [id number] Br and Name: Celexa S end Method: E-Prescr ibed Sub s Allowed: subs OK Medic ationGen ericName : Celexa Not Available Not Available Not Available cetirizin e 10 mg tablet TAKE 1 TABLET BY MOUTH DAILY NEEDED FOR ALLERGY SYMPTOMS active Not Available Not Available No t Available cetirizin e 5 mg tablet 07/22 completed Medicati on ID: [id number] Br and Name: cetirizi ne Send Method: [...] 28 gauge 03/20 completed Medicati on ID: [id number] D uration Value: 90 Brand Name: FreeStyl [...] inhalatio n 04/14 completed Medicati on ID: [id number] Re ason: () Brand Name: Advair Diskus [...] mg tablet 04/14 completed Medicati on ID: [id number] D uration Value: 7 Reason: () Brand [...] by mouth 03/20 completed Medicati on ID: [id number] D uration Value: 14 Prescri bed By [...] mg capsule 04/14 completed Medicati on ID: [id number] D uration Value: 90 Reason: () Brand Name: DOK Send Method: E-Prescr ibed Sub s Allowed: subs OK Speci al Instruct ion: TK 1 C PO BID Medi cationGe nericNam e: DOK Not Available Not Available Not Available Triple Antibioti c 3.5 mg-400 unit-5,00 0 unit/gram topical ointment 03/20 completed Not Available Not Available Not Available [employer] Test strips USE DAILY FOR BLOOD SUGAR [...] eye drops 03/20 completed Medicati on ID: [id number] D uration Value: 45 Brand Name: olopatad [...] by mouth 12/23 completed Medicati on ID: [id number] D uration Value: 30 Prescri bed By [...] No t Available Nasonex 50 mcg/actua tion [place] 2 spray into both nostrils 03/20 completed Medicati on ID: [id number] Du ration Value: 30 Brand Name: Nasonex [...] mg tablet 12/23 completed Medicati on ID: [id number] Re ason: () Brand Name: lisinopr il Send Method: E-Prescr ibed Sub s Allowed: subs OK Medic ationGen ericName : lisinopr il Not Available Not Available Not Available Ambien 5 mg tablet 12/23 completed Medicati on ID: [id number] Re ason: () Brand Name: Ambien S end Method: E-Prescr ibed Sub s Allowed: subs OK Medic ationGen ericName : Ambien Not Available Not Available Not Available ipratropi um bromide 21 mcg (0.03 %) nasal spray 2018 active Medicati on ID: [id number] D uration Value: 84 Brand Name: ipratrop ium bromide Send Method: E-Prescr ibed Sub s Allowed: subs OK Medic ationGen ericName : ipratrop ium bromide Not Available Not Available Not Available glipizide 5 mg tablet 12/23 completed Medicati on ID: [id number] Re ason: () Brand Name: glipizid e Send Method: E-Prescr ibed Sub s Allowed: subs OK Medic ationGen ericName : glipizid e Not Available Not Available Not Available Artificia l Tears (polyviny l alcohol) 1.4 % eye drops 03/20 completed Medicati on ID: [id number] D uration Value: 15 Brand Name: Artifici [...] mg tablet 03/20 completed Medicati on ID: [id number] D uration Value: 30 Brand Name: gayatriast [...] layed release 12/23 completed Medicati on ID: [id number] P rescribe d By Name: ROD Morales nd Name: doxycycl ine hyclate Send Method: E-Prescr ibed Sub s Allowed: subs OK Speckatia al Instruct ion: 1 po bid X 14 days Med icationG enericNa me: doxycycl ine hyclate Not Available Not Available Not Available DermOtic Oil 0.01 % ear drops Instill 5 drop twice a day as directed 03/20 completed Medicati on ID: [id number] P rescribe d By Name: ROD Lala [...] mg tablet 12/16 completed Medicati on ID: [id number] D uration Value: 30 Brand Name: levodayday arguetazine S end Method: E-Prescr ibed Sub s Allowed: subs OK Medic ationGen ericName : levoceti rizine Not Available Not Available Not Available omeprazol e 20 mg tablet,de layed release 10/02 completed Medicati on ID: [id number] Re ason: () Brand Name: omeprazo le [...] topical ointment 2018 active Medicati on ID: [id number] D uration Value: 30 Brand Name: lidocain e Send Method: E-Prescr ibed Sub s Allowed: subs OK Medic ationGen ericName : lidocain e Not Available Not Available Not Available Virtussin AC 10 mg-100 mg/5 mL oral liquid 10/02 completed Medicati on ID: [id number] D uration Value: 4 Reason: () Brand Name: Virtussi n AC Send Method: E-Prescr ibed Sub s Allowed: subs OK Medic ationGen ericName : Virtussi n AC Not Available Not Available Not Available Trulicity 0.75 mg/0.5 mL subcutane ous pen injector 03/20 completed Medicati on ID: [id number] D uration Value: 28 Brand Name: Trulicit [...] inhalatio n 03/20 completed Medicati on ID: [id number] D uration Value: 30 Brand Name: Berna [...] ICD10 Code Diagnosis IMO Codes Diagnosis Note 30494 MAE MACK, A Allergy [address] [facility] [place] [address] 05/21/2025 11:17:28 05/21/2025 12:18:20 Perennial allergic rhinitis [id number] J30.89 48533 ORION JOSUEAbad, RMA Allergy [address] [facility] [place] [place] [address] 06/14/2025 13:57:31 06/14/2025 14:23:40 Perennial allergic rhinitis [id number] J30.89 Health Concerns Section Related Observation LastModified by Organization Detai ls LastModified Time None Recorded Concern Status LastModified by Organization Details LastModified Time None Recorded Payers Encounter Date Sequence Insurance Name Policy Number Policy Sellers Covered Member ID Sellers Member ID Guarantor Name 06/14/2025 1 [facility] - DOS ON OR AFTER 2022 - MEDICARE [place]VANTAGE [place]MED[place]ARE REPLACEMENT/AD VANTAGE - PPO) Jana Woods [id number] Jana Woods 06/14/2025 2 [place] [facility] Jana Woods [id number] Jana Woods OBGyjose armando Episode No OBEpisode recorded.
--- OUTSIDE RECORDS SUMMARY | 2025-08-02 10:09 | XMS_ITS | Continuity of Care Document ---
Author Organization [place] - [facility], Allergy Address [address] [address] Care Team Providers Care Jig Borer Name Role Phone VIJAY BALBUENA Primary Care [...] Dose Aware of Vial Test Aware: Notes: Not available 07/16/2025 08:59:20 Plan of Treatment Reminders Order Date Submit Date Provider Last Modified By Organization Details Last Modified Time Details Appointments [facility]- Allergy f-up 6mon 2025 09:00A [...] Address Organization Details Recorded Time Impacted cerumen 83325501 Active 2013 Impacted cerumen; Note: Date Diagnosed : 4 12:17 PM (380.4) Not Available [facility] 4 02:31:07 Temporoma ndibular joint disorder 74258041 Active 2014 Temporoma ndibular joint disorder; Note: Date Diagnosed : 10/09/2014 2:21 PM (524.60) Not Available [facility] 4 02:31:22 Tinnitus 67648704 Active 2014 Tinnitus, unspecifi ed; Note: Date Diagnosed : 10/09/2014 2:50 PM (388.30) Not Available [facility] 4 02:31:08 Impacted cerumen of bilateral ears [id number] 70050 Active 2014 Impacted cerumen, bilateral ; Note: Date Diagnosed : 04/09/2015 11:03 AM (H61.23) [mapped from ICD9 code: 380.4] Not Available [facility] 4 02:31:19 Dysphonia 33254852 Active 2018 Hoarsenes s; Note: Date Diagnosed : 04/03/2019 9:27 AM (R49.0) Not Available [facility] 4 02:31:16 Gastroeso phageal reflux disease without esophagit is 558807204 Active 2019 Gastro-es ophageal reflux disease without esophagit is; Note: Date Diagnosed : 10/02/2019 10:28 AM (K21.9) Not Available [facility] 4 02:31:12 Acute laryngiti s 2715189 Active 2019 Acute laryngiti s; Note: Date Diagnosed : 10/02/2019 10:28 AM (J04.0) Not Available [facility] 4 02:31:13 Mild intermitt ent asthma 104382322 Active 2019 Mild intermitt ent asthma NOS; Note: Date Diagnosed : 0 2:31 PM (J45.20) Not Available [facility] 4 02:31:25 Acute sinusitis 66839374 Active 2020 Other acute sinusitis ; Note: Date Diagnosed : 01/23/2021 1:08 PM (J01.80) Not Available [facility] 4 02:31:11 Finding of resonance of voice 779980498 Active 2022 Unspecifi ed voice and resonance disorder; Note: Date Diagnosed : 02/03/2023 6:17 AM (R49.9) Not Available [facility] 4 02:31:18 Stomatiti s 53451615 Active 2022 Oral thrush; Note: Date Diagnosed : 02/03/2023 6:17 AM (B37.0) Not Available [facility] 4 02:31:09 Candidias is of mouth 05496309 Active 2022 Oral thrush; Note: Date Diagnosed : 02/03/2023 6:17 AM (B37.0) Not Available [facility] 4 02:31:09 Allergic rhinitis 96561670 Active 2023 S[facility] Apr 2020 monthly shots since 11/2022 CONSTANTINO ANDUJAR MD [address], [place], [address] , [place] [facility] 08:51:04 Perennial allergic rhinitis 765583025 Active 2023 ORION RAPP, RMA [address] [facility], [place], [address] , [place] [facility] 14:22:55 Problem Notes None recorded. Procedures Surgical History Date Name Laterality Status Provider Name and Address Organization Details Recorded Time 07/16/20 25 Allergy Immunotherapy Injections completed CHAZ VALDIVIA [address] [facility], [place], [address], [facility] - [facility] 07/16/2025 08:59:14 06/14/20 25 Allergy Immunotherapy Injections completed ORION RAPP RMA [address], [place], [address], [place] [facility] 06/14/2025 14:23:12 05/21/20 25 Allergy Immunotherapy Injections completed CHAZ VALDIVIA [address] [facility], [place], [address], [facility] - [facility] 05/21/2025 12:17:54 04/17/20 25 Allergy Immunotherapy Injections completed Bren Stewart [address], [place], [address], [place] [facility] 04/17/2025 10:02:58 03/12/20 25 Allergy Immunotherapy Injections completed CHAZ VALDIVIA [address], [place], [address], [place] [facility] 03/12/2025 13:23:41 02/09/20 25 Allergy Immunotherapy Injections completed ORION RAPP, RMA [address] [facility] [place],[address] [place] [address], [address], [place] [facility] 02/08/2025 15:08:18 01/11/20 25 Allergy Immunotherapy Injections completed LETICIA MCCOLLUM RN [address] [facility] [place],[address], [address], [place] [facility] 01/10/2025 08:59:19 12/12/19 25 Allergy Immunotherapy Injections completed LETICIA MCCOLLUM RN 100 [facility],[address], [address], [place] [facility] 12/11/2024 09:56:21 11/14/19 25 Allergy Immunotherapy Injections completed ORION RAPP A [address] [facility] [place],[address], [address], [place] [facility] 11/13/2024 09:59:03 10/16/19 25 Allergy Immunotherapy Injections completed CHAZ VALDIVIA 100 [facility],[address], [address], [facility] - [facility] 10/16/2024 09:14:46 09/17/19 25 Wax_DP completed CONSTANTINO ANDUJAR MD 100 [facility],[address], [address], [place] [facility] 09/17/2024 09:42:19 09/13/19 25 Allergy Immunotherapy Injections completed CHAZ VALDIVIA [address] [facility] [place],[address] [place] [address], [address], [place] [facility] 09/13/2024 14:15:30 08/21/20 24 Allergy Immunotherapy Injections completed ORION RAPP RMA [address] [facility] [place],[address], [place], [address], [place] [facility] 08/21/2024 11:47:43 08/14/20 24 Allergy Immunotherapy Injections completed LETICIA MCCOLLUM RN [address] [place] [address], [address], [facility] - [facility] 08/14/2024 10:09:09 07/17/20 24 Allergy Immunotherapy Injections completed CHAZ VALDIVIA [address] [place] [address], [address], [facility] - [facility] 07/17/2024 10:08:40 06/15/20 24 Allergy Immunotherapy Injections completed ORION RAPP RMJose Guadalupe [address], [place], [address], [facility] - [facility] 06/15/2024 13:13:55 05/22/20 24 Allergy Immunotherapy Injections completed ORION RAPP RMJose Guadalupe [address] [place] [address], [address], [facility] - [facility] 05/22/2024 12:56:50 04/12/20 24 Allergy Immunotherapy Injections completed LETICIA MCCOLLUM RN 100 [facility],[address], [address], [facility] - [facility] 04/12/2024 09:47:30 03/13/20 24 Allergy Immunotherapy Injections completed CHAZ VALDIVIA [address] [facility] [place],[address] [place] [address], [address], [facility] - [facility] 03/13/2024 13:26:42 02/14/20 24 Allergy Immunotherapy Injections completed CHAZ VALDIVIA [address] [facility] [place],[address], [address], [facility] - [facility] 02/14/2024 12:52:32 Imaging Results None recorded. Procedure Notes None recorded. Medical Equipment None Reported. Allergies Allergen ID Allergen Name Allergen Category Reaction Reaction Severity Criticality Documentation Date Start Date Code Code System Note Provider Name and Address Organization Details Recorded Time 80044 loratadin e medicatio n other Not available Not available 01/24/2024 99517 RxNorm React ion: unkno wn, unspe cifie d;; Not Available [facility] 00:57:28 96559 ibuprofen medicatio n other Not available Not available 01/24/2024 5640 RxNorm React ion: unkno wn, unspe cifie d;; Not Available [facility] 4 00:57:30 20283 penicilli n V potassium medicatio n other Not available Not available 01/24/2024 08399 5 RxNorm React ion: unkno wn, unspe cifie d;; Not Available [facility] 4 00:57:34 22383 tramadol hydrochlo ride medicatio n other Not available Not available 01/24/2024 24071 RxNorm React ion: unkno wn, unspe cifie d;; Not Available [facility] 4 00:57:38 Medications Name Sig [...] by mouth 03/20 completed Medicati on ID: [id number] D uration Value: 14 Brand Name: nystatin Send Method: E-Prescr ibed Sub s Allowed: subs OK Speci al Instruct ion: 5 ml swish and spit four times daily x 2 weeks Me dication GenericN armida: nystatin Not Available Not Available Not Available doxycycli ne hyclate 100 mg capsule 03/20 completed Medicati on ID: [id number] D uration Value: 14 Prescri bed By [...] tablet 11/10 /2020 completed Medicati on ID: [id number] Br and Name: Celexa S end Method: E-Prescr ibed Sub s Allowed: subs OK Medic ationGen ericName : Celexa Not Available Not Available Not Available cetirizin e 10 mg tablet TAKE 1 TABLET BY MOUTH DAILY NEEDED FOR ALLERGY SYMPTOMS active Not Available Not Available No t Available cetirizin e 5 mg tablet 07/22 completed Medicati on ID: [id number] Br and Name: cetirizi ne Send Method: [...] 28 gauge 03/20 completed Medicati on ID: [id number] D uration Value: 90 Brand Name: FreeStyl e Lancets Send Method: E-Prescr ibed Sub s Allowed: subs OK Speci al Instruct ion: USE FOR BLOOD SUGAR TESTING ONCE A DAY [facility] FreeStyl e Lancets Not [...] inhalatio n 04/14 completed Medicati on ID: [id number] Re ason: () Brand Name: Advair Diskus [...] mg tablet 04/14 completed Medicati on ID: [id number] D uration Value: 7 Reason: () Brand [...] by mouth 03/20 completed Medicati on ID: [id number] D uration Value: 14 Prescri bed By [...] mg capsule 04/14 completed Medicati on ID: [id number] D uration Value: 90 Reason: () Brand Name: PAOLO Send Method: E-Prescr ibed Sub s Allowed: subs OK Speci al Instruct ion: TK 1 C PO BID Medi cationGe nericNam e: DOK Not Available Not Available Not Available Triple Antibioti c 3.5 mg-400 unit-5,00 0 unit/gram topical ointment 03/20 completed Not Available Not Available Not Available [employer] Ultra Test strips USE DAILY FOR BLOOD [...] eye drops 03/20 completed Medicati on ID: [id number] D uration Value: 45 Brand Name: olopatad [...] by mouth 12/23 completed Medicati on ID: [id number] D uration Value: 30 Prescri bed By [...] No t Available Nasonex 50 mcg/actua tion [place] 2 spray into both nostrils 03/20 completed Medicati on ID: [id number] Du ration Value: 30 Brand Name: Nasonex [...] mg tablet 12/23 completed Medicati on ID: [id number] Re ason: () Brand Name: lisinopr il Send Method: E-Prescr ibed Sub s Allowed: subs OK Medic ationGen ericName : lisinopr il Not Available Not Available Not Available Ambien 5 mg tablet 12/23 completed Medicati on ID: [id number] Re ason: () Brand Name: Ambien S end Method: E-Prescr ibed Sub s Allowed: subs OK Medic ationGen ericName : Ambien Not Available Not Available Not Available ipratropi um bromide 21 mcg (0.03 %) nasal spray 2018 active Medicati on ID: [id number] D uration Value: 84 Brand Name: ipratrop ium bromide Send Method: E-Prescr ibed Sub s Allowed: subs OK Medic ationGen ericName : ipratrop ium bromide Not Available Not Available Not Available glipizide 5 mg tablet 12/23 completed Medicati on ID: [id number] Re ason: () Brand Name: glipizid e Send Method: E-Prescr ibed Sub s Allowed: subs OK Medic ationGen ericName : glipizid e Not Available Not Available Not Available Artificia l Tears (polyviny l alcohol) 1.4 % eye drops 03/20 completed Medicati on ID: [id number] D uration Value: 15 Brand Name: Artifici [...] mg tablet 03/20 completed Medicati on ID: [id number] D uration Value: 30 Brand Name: pop [...] layed release 12/23 completed Medicati on ID: [id number] P rescribe d By Name: ROD Morales nd Name: doxycycl ine hyclate Send Method: E-Prescr ibed Sub s Allowed: subs OK Júnior al Instruct ion: 1 po bid X 14 days Med icationG enericNa me: doxycycl ine hyclate Not Available Not Available Not Available DermOtic Oil 0.01 % ear drops Instill 5 drop twice a day as directed 03/20 completed Medicati on ID: [id number] P rescribe d By Name: ROD Lala [...] mg tablet 12/16 completed Medicati on ID: [id number] D uration Value: 30 Brand Name: levoceti rizine S end Method: E-Prescr ibed Sub s Allowed: subs OK Medic ationGen ericName : levoceti rizine Not Available Not Available Not Available omeprazol e 20 mg tablet,de layed release 10/02 completed Medicati on ID: [id number] Re ason: () Brand Name: omeprazo le [...] topical ointment 2018 active Medicati on ID: [id number] D uration Value: 30 Brand Name: lidocain e Send Method: E-Prescr ibed Sub s Allowed: subs OK Medic ationGen ericName : lidocain e Not Available Not Available Not Available Virtussin AC 10 mg-100 mg/5 mL oral liquid 10/02 completed Medicati on ID: [id number] D uration Value: 4 Reason: () Brand Name: Virtussi n AC Send Method: E-Prescr ibed Sub s Allowed: subs OK Medic ationGen ericName : Virtussi n AC Not Available Not Available Not Available Trulicity 0.75 mg/0.5 mL subcutane ous pen injector 03/20 completed Medicati on ID: [id number] D uration Value: 28 Brand Name: Trulicit [...] inhalatio n 03/20 completed Medicati on ID: [id number] D uration Value: 30 Brand Name: Berna [...] ICD10 Code Diagnosis IMO Codes Diagnosis Note 37163 CHAZ VALDIVIA Allergy 100 [facility] 100 [place] [address] 07/16/2025 08:39:38 07/16/2025 08:59:33 Perennial allergic rhinitis [id number] J30.89 Health Concerns Section Related Observation LastModified by Organization Detai ls LastModified Time None Recorded Concern Status LastModified by Organization Details LastModified Time None Recorded Payers Encounter Date Sequence Insurance Name Policy Number Policy Sellers Covered Member ID Sellers Member ID Guarantor Name 07/16/2025 1 [facility] - DOS ON OR AFTER 2022 - MEDICARE [place]VANTAGE [place]MED[place] REPLACEMENT/AD VANTAGE - PPO) Jana Woods [id number] Jana Woods 07/16/2025 2 [place] [facility] Jana Woods [id number] Jana Woods OBGyn Episode No OBEpisode recorded.
--- OUTSIDE RECORDS SUMMARY | 2025-08-02 10:09 | XMS_ITS | Data Portability ---
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 Name Role Phone VIJAY BALBUENA Primary [...] Aware of Vial Test Yes Aware: Notes: [email or web address] Not available 04/17/2025 10:03:40 05/21/2025 05/21/2025 Visit With: Mae Gorman Use of Antihistamines: No If yes: Vial Test Yes Change in medications: No If yes Increase in asthma symptoms If yes, inhaler use: Reaction to last injections: No If yes: Allergy Symptoms: Other: Missed: Dose Aware of Vial Test Aware: Notes: Not available 05/21/2025 12:18:03 06/14/2025 06/14/2025 Visit [...] Dose Aware of Vial Test Aware: Notes: [email or web address] Not available 07/16/2025 08:59:20 Plan of Treatment [...] mL injectio n, auto-inj paula 2024 [facility]25 [id number] [address], [place], [phone], 03/20/2025 09:13:24 Patient TargetsNo targets recorded. Patient InstructionsNo instructions recorded. Reason for Referral None Reported. Problems Name Problem SNOMED Code Status Onset Date Resolution Date Notes Provider Name and Address Organization Details Recorded Time Impacted cerumen 01385378 Active 2013 Impacted cerumen; Note: Date Diagnosed : 4 12:17 PM (380.4) Not Available [facility] 4 02:31:07 Temporoma ndibular joint disorder 53998142 Active 2014 Temporoma ndibular joint disorder; Note: Date Diagnosed : 10/09/2014 2:21 PM (524.60) Not Available [facility] 4 02:31:22 Tinnitus 41011663 Active 2014 Tinnitus, unspecifi ed; Note: Date Diagnosed : 10/09/2014 2:50 PM (388.30) Not Available [facility] 4 02:31:08 Impacted cerumen of bilateral ears [id number] 71466 Active 2014 Impacted cerumen, bilateral ; Note: Date Diagnosed : 04/09/2015 11:03 AM (H61.23) [mapped from ICD9 code: 380.4] Not Available [facility] 4 02:31:19 Dysphonia 85512177 Active 2018 Hoarsenes s; Note: Date Diagnosed : 04/03/2019 9:27 AM (R49.0) Not Available [facility] 4 02:31:16 Gastroeso phageal reflux disease without esophagit is 421597331 Active 2019 Gastro-es ophageal reflux disease without esophagit is; Note: Date Diagnosed : 10/02/2019 10:28 AM (K21.9) Not Available [facility] 4 02:31:12 Acute laryngiti s 4580323 Active 2019 Acute laryngiti s; Note: Date Diagnosed : 10/02/2019 10:28 AM (J04.0) Not Available [facility] 4 02:31:13 Mild intermitt ent asthma 909914692 Active 2019 Mild intermitt ent asthma NOS; Note: Date Diagnosed : 0 2:31 PM (J45.20) Not Available [facility] 4 02:31:25 Acute sinusitis 24667924 Active 2020 Other acute sinusitis ; Note: Date Diagnosed : 01/23/2021 1:08 PM (J01.80) Not Available [facility] 4 02:31:11 Finding of resonance of voice 412217031 Active 2022 Unspecifi ed voice and resonance disorder; Note: Date Diagnosed : 02/03/2023 6:17 AM (R49.9) Not Available [facility] 4 02:31:18 Stomatiti s 22233805 Active 2022 Oral thrush; Note: Date Diagnosed : 02/03/2023 6:17 AM (B37.0) Not Available [facility] 4 02:31:09 Candidias is of mouth 42737500 Active 2022 Oral thrush; Note: Date Diagnosed : 02/03/2023 6:17 AM (B37.0) Not Available [facility] 4 02:31:09 Allergic rhinitis 02259508 Active 2023 SCIT Apr 2020 monthly shots since 11/2022 CONSTANTINO ANDUJAR MD [address], [place], [address] , [facility] - [facility] 4 08:51:04 Perennial allergic rhinitis 487535992 Active 2023 ORION RAPP [facility] [address], [place], [address] , [facility] - [facility] 14:22:55 Problem Notes None recorded. Procedures Surgical History Date Name Laterality Status Provider Name and Address Organization Details Recorded Time 07/16/20 25 Allergy Immunotherapy Injections completed CHAZ VALDIVIA [address],ESHAN [facility] [place][note 2], [place], [address], [facility] - [facility] 07/16/2025 08:59:14 06/14/20 25 Allergy Immunotherapy Injections completed CHAZ CEVALLOS [address],[place] [facility] [place][note 2], [place], [address], [facility] - [facility] 06/14/2025 14:23:12 05/21/20 25 Allergy Immunotherapy Injections completed CHAZ VALDIVIA [address],[place] [facility] [place][note 2], [place], [address], [facility] - [facility] 05/21/2025 12:17:54 04/17/20 25 Allergy Immunotherapy Injections completed Bren Stewart [address], [place], [address], [facility] - [facility] 04/17/2025 10:02:58 03/12/20 25 Allergy Immunotherapy Injections completed CHAZ VALDIVIA [address], [place], [address], [place] [facility] 03/12/2025 13:23:41 02/09/20 25 Allergy Immunotherapy Injections completed ORION RAPP, RMA [address] [place] [address], [address], [place] [facility] 02/08/2025 15:08:18 01/11/20 25 Allergy Immunotherapy Injections completed LETICIA MCCOLLUM RN [address], [place], [address], [place] [facility] 01/10/2025 08:59:19 12/12/19 25 Allergy Immunotherapy Injections completed LETICIA MCCOLLUM RN [address] [facility] [address],[place] [facility] [place][note 2], [place], [address], [place] [facility] 12/11/2024 09:56:21 11/14/19 25 Allergy Immunotherapy Injections completed ORION RAPP, RMA [address] [facility] [address],[place] [facility] [place][note 2], [place], [address], [place] [facility] 11/13/2024 09:59:03 10/16/19 25 Allergy Immunotherapy Injections completed CHAZ VALDIVIA [address] [facility] [address] [place] [address], [address], [place] [facility] 10/16/2024 09:14:46 09/17/19 25 Wax_DP completed CONSTANTINO ANDUJAR MD [address] [facility] [address] [place] [address], [address], [place] [facility] 09/17/2024 09:42:19 09/13/19 25 Allergy Immunotherapy Injections completed CHAZ VALDIVIA [address] [facility] [address] [place] [address], [address], [place] [facility] 09/13/2024 14:15:30 08/21/20 24 Allergy Immunotherapy Injections completed ORION RAPP RMA [address] [facility] [address] [place] [address], [address], [place] [facility] 08/21/2024 11:47:43 08/14/20 24 Allergy Immunotherapy Injections completed LETICIA MCCOLLUM RN [address] [facility] [address] [place] [address], [address], [place] [facility] 08/14/2024 10:09:09 07/17/20 24 Allergy Immunotherapy Injections completed MAE GORMAN, GUILLAUMEA [address], [place], [address], [facility] - [facility] 07/17/2024 10:08:40 06/15/20 24 Allergy Immunotherapy Injections completed ORION RAPP, RMA [address], [place], [address], [facility] - [facility] 06/15/2024 13:13:55 05/22/20 24 Allergy Immunotherapy Injections completed ORION RAPP, RMA [address], [place], [address], [facility] - [facility] 05/22/2024 12:56:50 04/12/20 24 Allergy Immunotherapy Injections completed LETICIA MCCOLLUM RN [address], [place], [address], [facility] - [facility] 04/12/2024 09:47:30 03/13/20 24 Allergy Immunotherapy Injections completed MAE GORMAN RMA [address], [place], [address], [facility] - [facility] 03/13/2024 13:26:42 02/14/20 24 Allergy Immunotherapy Injections completed MAE GORMAN RMA [address], [place], [address], [facility] - [facility] 02/14/2024 12:52:32 Imaging Results None recorded. Procedure Notes None recorded. Medical Equipment None Reported. Allergies Allergen ID Allergen Name Allergen Category Reaction Reaction Severity Criticality Documentation Date Start Date Code Code System Note Provider Name and Address Organization Details Recorded Time 16708 loratadin e medicatio n other Not available Not available 01/24/2024 13274 RxNorm React ion: unkno wn, unspe cifie d;; Not Available [facility] 4 00:57:28 24346 ibuprofen medicatio n other Not available Not available 01/24/2024 5640 RxNorm React ion: unkno wn, unspe cifie d;; Not Available [facility] 05/14/202 4 00:57:30 30435 penicilli n V potassium medicatio n other Not available Not available 01/24/2024 75514 5 RxNorm React ion: unkno wn, unspe cifie d;; Not Available [facility] 4 00:57:34 71397 tramadol hydrochlo ride medicatio n other Not available Not available 01/24/2024 18088 RxNorm React ion: unkno wn, unspe cifie d;; Not Available [facility] 4 00:57:38 Medications Name Sig Start [...] by mouth 03/20 completed Medicati on ID: [id number] D uration Value: 14 Brand Name: nystatin Send Method: E-Prescr ibed Sub s Allowed: subs OK Speci al Instruct ion: 5 ml swish and spit four times daily x 2 weeks Me dication GenericN armida: nystatin Not Available Not Available Not Available doxycycli ne hyclate 100 mg capsule 03/20 completed Medicati on ID: [id number] D uration Value: 14 Prescri bed By [...] mg tablet 07/22 completed Medicati on ID: [id number] Br and Name: Celexa S end Method: E-Prescr ibed Sub s Allowed: subs OK Medic ationGen ericName : Celexa Not Available Not Available Not Available cetirizin e 10 mg tablet TAKE 1 TABLET BY MOUTH DAILY NEEDED FOR ALLERGY SYMPTOMS active Not Available Not Available No t Available cetirizin e 5 mg tablet 07/22 completed Medicati on ID: [id number] Br and Name: cetirizi ne Send Method: [...] 28 gauge 03/20 completed Medicati on ID: [id number] D uration Value: 90 Brand Name: FreeStyl [...] inhalatio n 04/14 completed Medicati on ID: [id number] Re ason: () Brand Name: Advair Diskus [...] mg tablet 04/14 completed Medicati on ID: [id number] D uration Value: 7 Reason: () Brand [...] by mouth 03/20 completed Medicati on ID: [id number] D uration Value: 14 Prescri bed By [...] mg capsule 04/14 completed Medicati on ID: [id number] D uration Value: 90 Reason: () Brand Name: DOK Send Method: E-Prescr ibed Sub s Allowed: subs OK Speci al Instruct ion: TK 1 C PO BID Medi cationGe nericNam e: DOK Not Available Not Available Not Available Triple Antibioti c 3.5 mg-400 unit-5,00 0 unit/gram topical ointment 03/20 completed Not Available Not Available Not Available ChelaileToGidsy Ultra Test strips USE DAILY FOR BLOOD [...] eye drops 03/20 completed Medicati on ID: 113074 D uration Value: 45 Brand Name: olopatad [...] by mouth 12/23 completed Medicati on ID: [id number] D uration Value: 30 Prescri bed By [...] No t Available Nasonex 50 mcg/actua tion [place] 2 spray into both nostrils 03/20 completed Medicati on ID: [id number] Du ration Value: 30 Brand Name: Nasonex [...] mg tablet 12/23 completed Medicati on ID: 41221 Re ason: () Brand Name: lisinopr il Send Method: E-Prescr ibed Sub s Allowed: subs OK Medic ationGen ericName : lisinopr il Not Available Not Available Not Available Ambien 5 mg tablet 12/23 completed Medicati on ID: [id number] Re ason: () Brand Name: Ambien S end Method: E-Prescr ibed Sub s Allowed: subs OK Medic ationGen ericName : Ambien Not Available Not Available Not Available ipratropi um bromide 21 mcg (0.03 %) nasal spray 2018 active Medicati on ID: 388390 D uration Value: 84 Brand Name: ipratrop ium bromide Send Method: E-Prescr ibed Sub s Allowed: subs OK Medic ationGen ericName : ipratrop ium bromide Not Available Not Available Not Available glipizide 5 mg tablet 12/23 completed Medicati on ID: 56729 Re ason: () Brand Name: glipizid e Send Method: E-Prescr ibed Sub s Allowed: subs OK Medic ationGen ericName : glipizid e Not Available Not Available Not Available Artificia l Tears (polyviny l alcohol) 1.4 % eye drops 03/20 completed Medicati on ID: 278609 D uration Value: 15 Brand Name: Artifici [...] mg tablet 03/20 completed Medicati on ID: [id number] D uration Value: 30 Brand Name: rosuvast [...] layed release 12/23 completed Medicati on ID: [id number] P rescribe d By Name: ROD Morales nd Name: doxycycl ine hyclate Send Method: E-Prescr ibed Sub s Allowed: subs TERENCE cervantes Instruct ion: 1 po bid X 14 days Med icationG enericNa me: doxycycl ine hyclate Not Available Not Available Not Available DermOtic Oil 0.01 % ear drops Instill 5 drop twice a day as directed 03/20 completed Medicati on ID: [id number] P rescribe d By Name: ROD Lala [...] mg tablet 12/16 completed Medicati on ID: [id number] D uration Value: 30 Brand Name: levoceti rizine S end Method: E-Prescr ibed Sub s Allowed: subs OK Medic ationGen ericName : levoceti rizine Not Available Not Available Not Available omeprazol e 20 mg tablet,de layed release 10/02 completed Medicati on ID: [id number] Re ason: () Brand Name: omeprazo le [...] topical ointment 2018 active Medicati on ID: 595177 D uration Value: 30 Brand Name: lidocain e Send Method: E-Prescr ibed Sub s Allowed: subs OK Medic ationGen ericName : lidocain e Not Available Not Available Not Available Virtussin AC 10 mg-100 mg/5 mL oral liquid 10/02 completed Medicati on ID: [id number] D uration Value: 4 Reason: () Brand Name: Virtussi n AC Send Method: E-Prescr ibed Sub s Allowed: subs OK Medic ationGen ericName : Virtussi n AC Not Available Not Available Not Available Trulicity 0.75 mg/0.5 mL subcutane ous pen injector 03/20 completed Medicati on ID: [id number] D uration Value: 28 Brand Name: Trulicit [...] inhalatio n 03/20 completed Medicati on ID: 465508 D uration Value: 30 Brand Name: Berna [...] Details Last Updated DateTime 03/20/2025 23.8 kg/m2 85539.01 g Sharron Quinn [place] - [facility] 03/20/2025 08:59:12 Date Recorded Body height Provider Name an d Address Organization Details Last Updated DateTime 03/20/2025 157.48 cm BRADLEY APPIAH [place] - [facility] 03/20/2025 08:48:48 Social History None recorded. Functional [...] Diagnosis IMO Codes Diagnosis Note 2660 [facility] Allergy [address] [place] [address] 02/14/2024 08:49:35 02/14/2024 16:09:57 Perennial allergic rhinitis 340992135 J30.89 6348 MAE GORMAN [facility] Allergy [address] [place] [address] 03/13/2024 12:49:03 03/13/2024 14:31:39 Perennial allergic rhinitis 337925664 J30.89 6567 CONSTANTINO ANDUJAR MD [facility] [address] [address] 03/16/2024 08:20:43 03/16/2024 09:15:02 Allergic rhinitis 92774924 J30.89 80948 LETICIA MCCOLLUM RN Allergy [address] [place] [address],[place] [address] [place] [address] 04/12/2024 08:55:50 04/12/2024 10:09:53 Perennial allergic rhinitis 362995754 J30.89 35555 MAE GORMAN [facility] Allergy [address] [place] [address], [address] [place] [address] 05/22/2024 09:50:18 05/22/2024 12:58:24 Perennial allergic rhinitis 076409889 J30.89 [id number] [facility], [facility] Allergy [address] [place] [address], [address] [place] [address] 06/15/2024 12:58:10 06/15/2024 13:14:20 Perennial allergic rhinitis 795456973 J30.89 89458 LETICIA MCCOLLUM RN Allergy [address] [place] [address] [address] [place] [address] 07/17/2024 09:29:48 07/17/2024 10:13:49 Perennial allergic rhinitis 579480870 J30.89 07502 LETICIA MCCOLLUM RN Allergy [address] [place], [place] [address] [address] [place] [address] 08/14/2024 08:59:31 08/14/2024 10:10:41 Perennial allergic rhinitis 445929392 J30.89 89589 MAE GORMAN [facility] Allergy [address] [place] [address],[place] [address] [place] [address] 08/21/2024 08:43:01 08/21/2024 08:44:50 Perennial allergic rhinitis 758064206 J30.89 92314 MAE GORMAN [facility] Allergy [address] [place] [address],[place] [address] [place] [address] 09/13/2024 12:45:41 09/13/2024 14:16:13 Perennial allergic rhinitis 703965944 J30.89 44330 CONSTANTINO ANDUJAR MD [facility] [place] [address] [facility] [place] [address] 09/17/2024 09:21:09 09/17/2024 09:47:27 Allergic rhinitis 55607438 J30.89 Impacted c erumen of bilateral ears 2883195097 332113 H61.23 Ears were meticulous ly cleaned bilaterall y today with fine pics, curettes and/or suction. Patient is encouraged to avoid Q-tips in their ears relative to packing the wax in tighter. They may use the corner of their bath towel to gently clean the nooks and crannies of the external ears as needed. Yearly visits or as needed are [place] [address] MAE GORMAN, [facility] Allergy [address] [place] [address],[place] [address] [facility] [address] 10/16/2024 09:05:24 10/16/2024 09:19:51 Perennial allergic rhinitis 158100010 J30.89 12105 [facility] Allergy [address] [place] [address],[place] [address] [facility] [address] 11/13/2024 09:31:00 11/13/2024 09:59:35 Perennial allergic rhinitis 897551937 J30.89 [id number] LETICIA MCCOLLUM RN Allergy [address] [place] [address],[place] [address] [facility] [place] [address] 12/11/2024 09:31:27 12/11/2024 09:56:58 Perennial allergic rhinitis 712136119 J30.89 74526 LETICIA MCCOLLUM RN Allergy [address] [place] [address], [address] [place] [address] 01/10/2025 08:42:57 01/10/2025 08:59:40 Perennial allergic rhinitis 994093427 J30.89 57229 [facility] Allergy [address] [place] [address],[place] [address] [place] [address] 02/08/2025 13:03:58 02/08/2025 15:09:19 Perennial allergic rhinitis 386999389 J30.89 76820 MAE GORMAN [facility] Allergy [address] [place] [address],[place] [address] [place] [address] 03/12/2025 13:20:16 03/12/2025 13:24:30 Perennial allergic rhinitis 528871234 J30.89 34303 CONSTANTINO ANDUJAR MD [facility] [place] [address] [facility] [place] [address] 03/20/2025 08:47:37 03/20/2025 09:14:09 Allergic rhinitis 94183674 J30.89 03436 ORION JOSUE, RMA Allergy [address] [facility] [address],[place] [address] [place] [address] 04/17/2025 09:55:17 04/17/2025 10:03:58 Perennial allergic rhinitis [id number] J30.89 12915 MAE GORMAN, A Allergy [address] [facility] [address],[place] [address] [place] [address] 05/21/2025 11:17:28 05/21/2025 12:18:20 Perennial allergic rhinitis 774026959 J30.89 10681 [facility] All[facility] [address] [facility] [address],[place] [address] [place] [address] 06/14/2025 13:57:31 06/14/2025 14:23:40 Perennial allergic rhinitis 116347251 J30.89 27591 MAE GORMAN, RMA Allergy [address] [facility] [address] [place] [address] [place] [address] 07/16/2025 08:39:38 07/16/2025 08:59:33 Perennial allergic rhinitis 223432357 J30.89 Health Concerns Section Related Observation LastModified by Organization Detai ls LastModified Time None Recorded Concern Status LastModified by Organization Details LastModified Time None Recorded Advance Directives Directive None Recorded Payers Insurance Date Sequence Insurance Name Policy Number Policy Sellers Covered Member ID Sellers Member ID Guarantor Name 07/16/2025 1 [facility] - DOS ON OR AFTER 2022 - MEDICARE [place]VANTAGE [place] (MEDICARE REPLACEMENT/AD VANTAGE - PPO) Jana Woods [id number] Jana Woods 03/12/2025 1 [facility] - DOS ON OR AFTER 2022 - RETIREMENT OPTIONS (MEDICARE REPLACEMENT/AD VANTAGE - HMO) Jana Woods [id number] Jana Woods 03/12/2025 1 [facility] - [facility] [place] ([place] REPLAC[place]/AD VANTAGE - HMO) Jana Woods [id number] Jana Woods 07/16/2025 2 [place]: [facility] Jana Woods [id number] Jana Woods Notes Date Note Type Note Provider Name and Address Organization Details Recorded Time 03/20/2025 text/html ROS as noted in the HPI allergy followupipad - spanishSCIT Apr 2020monthly shots since 11/2022epipen - 04/2025triamcinolon e spray has been helpful CONSTANTINO ANDUJAR MD [address] [place] [address], [address], [place] - [facility] 03/20/2025 09:14:09 OBGyn Episode No OBEpisode recorded.
== END 2025-08-02 10:07 | disposition home or self-care (01) ==
LOC: HO.RHES 09:34
PROVIDERS: PCP Family Medicine; Visit Provider Student in an Organized Health Care Education/Training Program
DX: M81.0 Age-related osteoporosis without current pathological fracture (principal); M15.9 Polyosteoarthritis, unspecified; E21.3 Hyperparathyroidism, unspecified
CPT/HCPCS: 99213; G2211

== ENCOUNTER → 2025-08-02 09:34 | Outpatient (BNVA) | payer OTHER, SELFPAY | PROVIDERS: PCP Family Medicine; Visit Provider Student in an Organized Health Care Education/Training Program | DX: M81.0 Age-related osteoporosis without current pathological fracture (principal); E21.3 Hyperparathyroidism, unspecified; M19.041 Primary osteoarthritis, right hand; M19.042 Primary osteoarthritis, left hand; Z79.899 Other long term (current) drug therapy | CPT/HCPCS: 99212 ==

== ENCOUNTER 2025-08-07 11:43 | Outpatient (REF) | payer OTHER, SELFPAY ==
[2025-08-07 18:31] LABS: Calcium 9.6 mg/dL (8.4-10.2); Estimated Glomerular Filt Rate > 60
== END 2025-08-07 11:44 | disposition home or self-care (01) ==
LOC: HO.HKASLDS 11:43
PROVIDERS: PCP Family Medicine; Visit Provider Student in an Organized Health Care Education/Training Program
DX: Z79.899 Other long term (current) drug therapy (principal)
CPT/HCPCS: 36415; 82306; 82310; 82565

== ENCOUNTER 2025-08-15 09:46 | Outpatient (AMB) | payer OTHER, SELFPAY ==
--- NOTE | 2025-08-15 10:28 | AM.OFFVISNUR ---
Intake Visit Reasons: evenity Allergies aspirin Allergy (Unknown, Verified 08/02/25 09:44) Rash ibuprofen Allergy (Unknown, Verified 08/02/25 09:44) Rash loratadine Allergy (Unknown, Verified 08/02/25 09:44) Rash pneumococcal vaccine Allergy (Unknown, Verified 08/02/25 09:44) Rash Penicillins Allergy (Verified 08/02/25 09:44) Rash Seafood Allergy (Unknown, Uncoded 11/01/24 13:07) Rash flu vaccine Allergy (Uncoded 11/01/24 13:07) Rash shingles vaccine Allergy (Uncoded 11/01/24 13:07) rash Office Meds romosozumab-aqqg 210 mg/2.34 mL(105 mg/1.17 mL x2)subcutaneous syringe Performing Provider: Rena Medel MD Performing [place] [facility] [place] [facility] Administered by: Andra Guo RN on 08/15/25 10:28 Dose Route Admin Location Dispensed Lot Number Expiration Date NDC Parachute Cushion Installer 105 mg subcut right lower abdomen 1.17 mL [id number] 01/10/28 41414-141-11 [employer] 105 mg subcut left lower abdomen 1.17 mL [id number] 01/10/28 14336-624-28 [employer] Total Dispensed Waste 2.34 mL 0 % Comments: pt arrived today for her evenity injection #1. instructions and communication was relayed with charge accounts audit clerk, id #[id number]. injection sites were clear, dry, and intact. pt tolerated injections well and stayed to be monitored for adverse reactions and side effects. after 20 minutes, pt was assessed and departed to home. she was informed to notify us if she has any reactions or side effects. Assessment & Plan Assessment & Plan Orders: Orders AMB Romosozumab Injection Practice Supplied Today M81.0 - Age-related osteoporosis without current pathological fracture Coding
== END 2025-08-15 10:23 | disposition home or self-care (01) ==
LOC: HO.RHES 09:46
PROVIDERS: PCP Family Medicine; Visit Provider Student in an Organized Health Care Education/Training Program
DX: M81.0 Age-related osteoporosis without current pathological fracture (principal)

== ENCOUNTER → 2025-08-15 09:46 | Outpatient (BNVA) | payer OTHER, SELFPAY | PROVIDERS: PCP Family Medicine; Visit Provider Student in an Organized Health Care Education/Training Program | DX: M81.0 Age-related osteoporosis without current pathological fracture (principal) | CPT/HCPCS: 96372; J3111 ==